=== PATIENT | female | born 1955 | race Caucasian/White ===

== ENCOUNTER → 2018-07-27 08:04 | Outpatient (CLI) | payer MEDICARE, OTHER, SELFPAY ==
[2018-07-27 10:12] LABS: Add Manual Diff / Slide Review NO; Basophils Percent Auto 0.6 % (0-2); Eosinophils Percent Auto 1.5 % (2-4); Hematocrit 41.4 % (36-46); Hemoglobin 14.2 g/dL (12.0-16.0); Lymphocytes Percent Auto 31.9 % (25-40); Mean Corpuscular HGB Conc 34.3 % (30-36); Mean Corpuscular Hemoglobin 31.6 PG (26-34); Mean Corpuscular Volume 92.1 fL (80-100); Monocytes Percent Auto 7.1 % (3-14); Neutrophils Absolute Auto 2800 /uL (3000-5900); Neutrophils Percent Auto 58.9 % (50-75); Platelet Count 242 X10^3/uL (150-400); Red Cell Distribution Width 13.2 % (11.6-14.8); White Blood Cell Count 4.7 X10^3/uL (4.5-11.0)
[2018-07-27 10:36] LABS: Alanine Aminotransferase 34 IU/L (9-52); Albumin 4.2 g/dL (3.5-5.0); Albumin Globulin Ratio 1.6 (1.0-2.8); Alkaline Phosphatase 73 U/L (38-126); Aspartate Aminotransferase 29 IU/L (14-36); BUN Creatinine Ratio 24.3 (6-22); Bilirubin Total 0.7 mg/dL (0.2-1.3); Blood Urea Nitrogen 17 mg/dL (7-17); Calcium 9.5 mg/dL (8.4-10.2); Carbon Dioxide 28 mmol/L (22-32); Chloride 105 mmol/L (98-107); Cholesterol 202 mg/dL (140-199); Estimated Glomerular Filt Rate > 60.0 mL/min (>60); Globulin 2.6 g/dL (1.7-4.1); Glucose 94 mg/dL (80-110); HDL Cholesterol 64 mg/dL (40-60); HEMOLYSIS < 15 (0-50); LDL Cholesterol Calculated 127 mg/dL (<100); Potassium 4.2 mmol/L (3.4-5.1); Sodium 142 mmol/L (137-145); Total Protein 6.8 g/dL (6.3-8.2); Triglycerides 56 mg/dL (35-150)
[2018-07-29 14:41] LABS: Fecal Immunochemical Test NOT DETECTED
== END ==
PROVIDERS: PCP Family Medicine; Visit Provider Family Medicine
DX: R42 Dizziness and giddiness (principal); Z00.00 Encounter for general adult medical examination without abnormal findings; Z13.220 Encounter for screening for lipoid disorders; Z86.39 Personal history of other endocrine, nutritional and metabolic disease; Z12.11 Encounter for screening for malignant neoplasm of colon
CPT/HCPCS: 36415; 80053; 80061; 82274; 85025

== ENCOUNTER → 2018-09-04 09:16 | Outpatient (CLI) | payer MEDICARE, OTHER, SELFPAY ==
--- NOTE | 2018-09-04 09:18 | DI.MG.S_ITS ---
BILATERAL DIGITAL SCREENING MAMMOGRAM 3D/2D WITH CAD: 09/04/2018 CLINICAL: Routine screening. Comparison is made to exam dated: 07/04/2017 mammogram - [facility]. The tissue of both breasts is heterogeneously dense. This may lower the sensitivity of mammography. Current study was also evaluated with a Computer Aided Detection (CAD) system. No significant masses, calcifications, or other findings are seen in either breast. There has been no significant interval change. IMPRESSION: NEGATIVE There is no mammographic evidence of malignancy. A 1 year screening mammogram is recommended. This exam was interpreted at Station ID: [id number]. NOTE: For mammograms, a report in lay terms will be sent to the patient. Approximately 15% of breast malignancies will not be visualized mammographically. In the management of a palpable breast mass, a negative mammogram must not discourage biopsy of a clinically suspicious lesion. Electronically Signed By: Janice chiang/anabelle:09/04/2018 16:56:30 letter sent: Normal Exam ACR BI-RADS Category 1: Negative 3341F
== END ==
PROVIDERS: PCP Family Medicine; Visit Provider Family Medicine
DX: Z12.31 Encounter for screening mammogram for malignant neoplasm of breast (principal); M85.88 Other specified disorders of bone density and structure, other site; Z13.820 Encounter for screening for osteoporosis; Z78.0 Asymptomatic menopausal state; Z87.39 Personal history of other diseases of the musculoskeletal system and connective tissue
CPT/HCPCS: 77063; 77067; 77080

== ENCOUNTER → 2019-09-15 07:31 | Outpatient (CLI) | payer MEDICARE, OTHER, SELFPAY ==
--- NOTE | 2019-09-15 | DI.MG.S_ITS ---
BILATERAL DIGITAL SCREENING MAMMOGRAM 3D/2D WITH CAD: 09/15/2019 CLINICAL: Routine screening. Comparison is made to exams dated: 09/04/2018 mammogram - [facility] and 07/04/2017 mammogram - [facility]. The tissue of both breasts is heterogeneously dense. This may lower the sensitivity of mammography. Current study was also evaluated with a Computer Aided Detection (CAD) system. No significant masses, calcifications, or other findings are seen in either breast. There has been no significant interval change. IMPRESSION: NEGATIVE There is no mammographic evidence of malignancy. A 1 year screening mammogram is recommended. This exam was interpreted at Station ID: [id number]. NOTE: For mammograms, a report in lay terms will be sent to the patient. Approximately 15% of breast malignancies will not be visualized mammographically. In the management of a palpable breast mass, a negative mammogram must not discourage biopsy of a clinically suspicious lesion. Electronically Signed By: Janice chiang/anabelle:09/17/2019 10:40:10 letter sent: Normal Exam ACR BI-RADS Category 1: Negative 3341F
== END ==
PROVIDERS: PCP Family Medicine; Visit Provider Family Medicine
DX: Z12.31 Encounter for screening mammogram for malignant neoplasm of breast (principal)
CPT/HCPCS: 77063; 77067

== ENCOUNTER 2019-09-25 06:35 | Day surgery (SDC) | payer MEDICARE, OTHER, SELFPAY ==
[2019-09-25 07:12] VITALS: BP 139/73; PULSE 49; RESP 16; TEMP 36.4; O2SAT 100; BMI 24.3
[2019-09-25] MEDS: SODIUM CHLORIDE 0.9% 1,000 ML 200 ML IV (07:25)
--- NOTE | 2019-09-25 07:51 | PM.PREOP ---
Pre-operative Note Interval Note History & Physical reviewed/Exam performed by Physician: Yes Changes to H&P: Yes H&P completed within 30 days and has changed as indicated here:: The patient once skin tag removed anus. It was added to consent ASA Class (for procedural sedation): I
--- NOTE | 2019-09-25 08:34 | PM.OP.ENDO ---
Operative Date/Time/Diagnoses Date of procedure: 09/25/19 Time of procedure: 08:35 Pre-op diagnosis: Skin tag of anus. Screening exam. History of colon bleeding Post-op diagnosis: same (Normal colonoscopy) Procedure & Clinicians Study performed: Colonoscopy. Excision of anal tag. Same procedure as scheduled: Yes Indications: Is rectal bleeding Surgeon: Dougie Morocho Procedure Notes SCOAP/Timeout: Performed Procedure in detail: The patient was placed in the left lateral decubitus position and underwent IV sedation directed by the surgeon consisting of fentanyl and Versed. Digital exam was unremarkable except for small tag anterior midline. The scope was inserted and advanced through the rectum into the sigmoid, descending, transverse, and ascending colon. No lesions were seen. The cecum was reached identified by the ileocecal valve and the appendiceal opening. The ileocecal valve was successfully cannulated. The terminal ileum was normal in appearance. The scope was gradually brought out. No Polyps were found. The scope ultimately was retroflexed in the rectum. The appearance was normal. The scope was removed and the patient tolerated the procedure well. The prep was excellent. I then cleaned the perianal skin with Betadine and injected local anesthetic near the base of the tag. The tag was excised with scissors and closure of the defect was with a 4 0 chromic interrupted suture. Gauze was applied. Scope withdrawal time: 6-1/2 minutes Sedation minutes: 24 Findings: other findings (Tag near the anus) Specimen(s): none sent Complications: none Post-procedure Recommendations: Colonscopy in 10 years Follow up: as needed Disposition: PACU
[2019-09-25] MEDS: fentaNYL 250 MCG/5 ML INJ IV (08:35)
[2019-09-25] MEDS: MIDAZOLAM 5 MG/5 ML VIAL IV (08:36)
[2019-09-25 08:37] VITALS: BP 128/73; PULSE 64; RESP 18; TEMP 36.3; O2SAT 99
[2019-09-25] MEDS: LIDOCAINE 1% 30 ML INJ (08:37)
[2019-09-25 08:42] VITALS: BP 121/76; PULSE 56; RESP 18; O2SAT 100
[2019-09-25 08:47] VITALS: BP 121/78; PULSE 61; RESP 15; O2SAT 100
[2019-09-25 08:52] VITALS: BP 131/76; PULSE 53; RESP 15; TEMP 36.3; O2SAT 99
== END 2019-09-25 09:05 | disposition home or self-care (01) ==
LOC: ENDO 06:36
PROVIDERS: PCP Family Medicine; Visit Provider Specialist
PROC: 0DJD8ZZ Inspection of Lower Intestinal Tract, Via Natural or Artificial Opening Endoscopic (ICD-10-PCS; CPT 45378; principal; 2019-09-25 07:45)
DX: Z12.11 Encounter for screening for malignant neoplasm of colon (principal); Z80.0 Family history of malignant neoplasm of digestive organs; K64.4 Residual hemorrhoidal skin tags
CPT/HCPCS: 46220; G0105; 99152; J2250; J3010

== ENCOUNTER → 2020-02-24 10:51 | Outpatient (CLI) | payer MEDICARE, OTHER, SELFPAY ==
--- NOTE | 2020-02-24 10:54 | DI.RAD.S_ITS ---
PROCEDURE: XR TIBIA FIBULA RT 2V INDICATIONS: Left lower extremity pain TECHNIQUE: 2 views of the tibia and fibula were acquired. COMPARISON: None. FINDINGS: Bones: No fractures or dislocations. No suspicious bony lesions. Soft tissues: No suspicious soft tissue calcifications or masses. IMPRESSION: No fracture. If the patient's symptoms do not improve recommend followup radiographs in 10 days to assess for healing sclerosis/occult injury. Dictated by: Johny Norris M.D. on 02/24/2020 at 13:03 Approved by: Johny Norris M.D. on 02/24/2020 at 13:04
== END ==
PROVIDERS: PCP Family Medicine; Referring Provider Registered Nurse; Visit Provider Registered Nurse
DX: M79.605 Pain in left leg (principal)
CPT/HCPCS: 73590

== ENCOUNTER → 2020-02-25 08:10 | Outpatient (CLI) | payer MEDICARE, OTHER, SELFPAY ==
[2020-02-25 09:50] LABS: Alanine Aminotransferase 19 IU/L (<35); Albumin 4.4 g/dL (3.5-5.0); Albumin Globulin Ratio 1.7 (1.0-2.8); Alkaline Phosphatase 76 U/L (38-126); Aspartate Aminotransferase 34 IU/L (14-36); BUN Creatinine Ratio 26.7 (6-22); Bilirubin Total 0.8 mg/dL (0.2-1.3); Blood Urea Nitrogen 16 mg/dL (7-17); Calcium 10.1 mg/dL (8.4-10.2); Carbon Dioxide 31 mmol/L (22-32); Chloride 104 mmol/L (98-107); Estimated Glomerular Filt Rate > 60.0 mL/min (>60); Globulin 2.6 g/dL (1.7-4.1); Glucose 103 mg/dL (80-110); HEMOLYSIS < 15 (0-50); Potassium 4.8 mmol/L (3.4-5.1); Sodium 139 mmol/L (137-145)
== END ==
PROVIDERS: PCP Family Medicine; Referring Provider Family Medicine; Visit Provider Family Medicine
DX: Z13.1 Encounter for screening for diabetes mellitus (principal)
CPT/HCPCS: 36415; 80053

== ENCOUNTER 2020-03-01 07:07 | Emergency (ER) | payer MEDICARE, OTHER, SELFPAY ==
[2020-03-01 07:13] VITALS: BP 158/77; PULSE 68; RESP 16; TEMP 36.9; O2SAT 100; BMI 24.0
--- NOTE | 2020-03-01 07:18 | DI.RAD.S_ITS ---
PROCEDURE: XR KNEE RT 3V INDICATIONS: open lac TECHNIQUE: 3 views of the knee were acquired. COMPARISON: None. FINDINGS: Bones: No fractures or dislocations. No suspicious bony lesions. Mild tricompartmental osteoarthritis is seen more prominent in the medial femoral tibial compartment. Soft tissues: No joint effusion. No suspicious soft tissue calcifications. IMPRESSION: Mild tricompartmental osteoarthritis. No fracture or dislocation. No radiopaque foreign body or significant joint effusion. Dictated by: Sarmad Finch M.D. on 03/01/2020 at 8:40 Approved by: Sarmad Finch M.D. on 03/01/2020 at 8:41
--- NOTE | 2020-03-01 08:20 | ED_ITS ---
HPI - Extremity Injury (Lower) General Chief Complaint: Extremity Injury, Lower Stated Complaint: injury to right knee Time Seen by Provider: 03/01/20 08:01 Source: patient Mode of arrival: Ambulatory Limitations: no limitations History of Present Illness HPI Narrative: 64-year-old woman with no significant past medical history was out walking around [place] like this morning when she had a mechanical fall stumbled fell forward landing mostly on her right knee and left elbow. There is no loss of consciousness. She was able to get up and complete her walk to get back to her car. She notes some tenderness in the right knee but again is able to walk and bear weight. There is a 2 cm laceration just below the knee that does not appear to go through fascial planes or into the knee joint itself. Related Data Home Medications Medication Instructions Recorded Confirmed cholecalciferol (vitamin D3) 25 2,000 unit PO DAILY 09/17/19 02/24/20 mcg (1,000 unit) capsule Previous Rx's Medication Instructions Recorded sodium,potassium,mag sulfates 17.5 177 ml PO DAILY #354 ml 09/17/19 gram-3.13 gram-1.6 gram oral soln Allergies Allergy/AdvReac Type Severity Reaction Status Date / Time No Known Drug Allergies Allergy Verified 02/24/20 10:27 Review of Systems Review of Systems Narrative: Pertinent positive and negative findings as per HPI Remainder of review of systems is otherwise unremarkable for Constitutional: Fevers, chills, weakness ENT: No sore throat, neck pain, ear pain CV: Chest pain, palpitations, dyspnea on exertion Respiratory: Cough, wheeze, dyspnea GI: Nausea, vomiting, diarrhea, change in bowel habits, black or bloody stools : Dysuria, hematuria, flank pain MS: Muscle weakness, numbness, joint swelling or warmth Neuro: Syncope, dizziness, tingling Patient History Medical History Abnormal Pap smear of cervix (Resolved ~1995) Chicken pox (Resolved) Foot pain (Chronic ~2014) Measles (Resolved) Plantar warts (Chronic) Rosacea (Chronic) Tinnitus (Chronic ~1989) Surgical History History of hysterectomy (Resolved ~1995) History of tonsillectomy (Resolved ~1960) Family History Father Lung cancer Mother Colon cancer Grandmother Diabetes mellitus Social History marital status: number of children: 2 household members: spouse lives independently: Yes education level: college occupational status: other (retired) Smoking Status: Never smoker alcohol intake: current substance use type: does not use Smoking Status: Never smoker alcohol intake frequency: 0-2 drinks per day Substance Use Type: does not use Exam Narrative Exam Narrative: General: Alert appropriate in no acute distress Respiratory: Able to speak in full sentences, no obvious respiratory distress Skin: No obvious rashes, warm and dry Neurologic: Grossly intact no obvious asymmetries or abnormalities Psych, appropriate insight and affect, cooperative Extremity: Minor abrasion to the medial aspect of the left elbow with full range of motion of the left shoulder elbow and wrist. Neurovascularly intact. Minor abrasion to the palmar surface of the right hand, hand wrist elbow and shoulder all with full range of motion and neurovascularly intact. No injury to the left leg. Right leg with an abrasion over the patella. A slight bit of effusion already noted Reilly patella. She has tenderness with full extension but can extend to approximately 160? without pain. Wound is explored pre and post anesthesia with no fascial deficits appreciated to suspect intra-articular involvement. Initial Vital Signs Initial Vital Signs: Vital Signs Temperature 98.4 F 03/01/20 07:13 Pulse Rate 68 03/01/20 07:13 Respiratory Rate 16 03/01/20 07:13 Blood Pressure 158/77 H 03/01/20 07:13 Pulse Oximetry 100 03/01/20 07:13 Procedures Laceration Repair Laceration 1: Site: lower extremity Side (If applicable): right Size (cm): 2 Description: linear Depth: simple, single layer Local Anesthetic: bupivacaine 0.5% Pre-repair: wound explored, irrigated extensively, deep structures intact and wound margins revised Skin layer closed with: nylon Size (cm): 3-0 Number of sutures: 1 Technique: horizontal mattress Course Orders Ordered: ED Orders 03/01/20 07:18 XR knee RT 3V Stat Vital Signs Vital signs: Vital Signs - 8 hr 03/01/20 07:13 Temperature 98.4 F Pulse Rate 68 Respiratory Rate 16 Blood Pressure 158/77 H Pulse Oximetry 100 MDM - Extremity Injury (Lower) Imaging Data X-ray knee: Radiologist's Impression: IMPRESSION: Mild tricompartmental osteoarthritis. No fracture or dislocation. No radiopaque foreign body or significant joint effusion. Dictated by: Sarmad Finch M.D. on 03/01/2020 at 8:40 MDM Narrative Medical decision making narrative: Fall with laceration below the right knee. With careful exploration I do not think that this extends into the joint space. Complications of joint space infection or clearly reviewed with patient and she understands urgent need for re-evaluation if she has any concerning symptoms. She is safe for home discharge. Discharge Plan Departure Patient Disposition: Home Clinical Impression: Laceration Knee strain Qualifiers: Encounter type: initial encounter Laterality: right Qualified Code(s): S86.911A - Strain of unspecified muscle(s) and tendon(s) at lower leg level, right leg, initial encounter Fall Qualifiers: Encounter type: initial encounter Qualified Code(s): W19.XXXA - Unspecified fall, initial encounter Abrasion of elbow Qualifiers: Encounter type: initial encounter Laterality: left Qualified Code(s): S50.312A - Abrasion of left elbow, initial encounter Instructions: DI for Knee Sprain, DI for Laceration Repair -- Simple Activity Restrictions/Additional Instructions: Thank you for coming in today. This stitches in your knee need to come out on or about March 10 or . The wound was explored and I did not see any evidence that there is a puncture into the knee joint space and the x-ray was equally reassuring. Sometimes however small puncture spaces are missed. If you were to develop an infection in the knee joint this would need immediate attention. You would notice increasing pain, swelling, warmth, redness. If you notice any of these things developing please return for further evaluation. Keep the suture space and abrasion over the knee dressed with antibiotic ointment and a Band-Aid while it is healing. With any fall you are going to find all sorts of sore spots over the next 1-2 days as your body continues to heal. Using 400 mg of ibuprofen (2 [id number] pills) and 1 Tylenol every 6 hours can be very helpful in controlling pain. I hope you heal well and I hope you are able to continue plans for your [place] hike next month. Prescriptions: No Action cholecalciferol (vitamin D3) 1,000 unit capsule 2,000 unit PO DAILY RF: 0 sodium,potassium,mag sulfates 17.5-3.13-1.6 gram recon soln 177 ml PO DAILY Qty: 354 RF: 0 Referrals: Ness Amaya DO [Primary Care Provider] -
[2020-03-01 09:15] VITALS: BP 144/86; PULSE 82; RESP 16; O2SAT 100
== END 2020-03-01 09:15 | disposition home or self-care (01) ==
PROVIDERS: Emergency Provider Emergency Medicine; PCP Family Medicine
DX: S81.011A Laceration without foreign body, right knee, initial encounter (principal); S86.911A Strain of unspecified muscle(s) and tendon(s) at lower leg level, right leg, initial encounter; S50.312A Abrasion of left elbow, initial encounter; W19.XXXA Unspecified fall, initial encounter
CPT/HCPCS: 12001; 73562; 99283

== ENCOUNTER → 2020-09-21 09:56 | Outpatient (CLI) | payer MEDICARE, OTHER, SELFPAY ==
--- NOTE | 2020-09-21 | DI.MG.S_ITS ---
BILATERAL DIGITAL SCREENING MAMMOGRAM 3D/2D WITH CAD: 09/21/2020 CLINICAL: Routine screening. Comparison is made to exams dated: 09/15/2019 mammogram, 09/04/2018 mammogram - [facility], and 07/04/2017 mammogram - [facility]. The tissue of both breasts is heterogeneously dense. This may lower the sensitivity of mammography. Current study was also evaluated with a Computer Aided Detection (CAD) system. No significant masses, calcifications, or other findings are seen in either breast. There has been no significant interval change. IMPRESSION: NEGATIVE There is no mammographic evidence of malignancy. A 1 year screening mammogram is recommended. This exam was interpreted at Station ID: [id number]. NOTE: For mammograms, a report in lay terms will be sent to the patient. Approximately 15% of breast malignancies will not be visualized mammographically. In the management of a palpable breast mass, a negative mammogram must not discourage biopsy of a clinically suspicious lesion. Electronically Signed By: Osvaldo marcum/anabelle:09/21/2020 10:54:16 letter sent: Normal Exam ACR BI-RADS Category 1: Negative 3341F
== END ==
PROVIDERS: PCP Family Medicine; Referring Provider Family Medicine; Visit Provider Family Medicine
DX: Z12.31 Encounter for screening mammogram for malignant neoplasm of breast (principal); M85.88 Other specified disorders of bone density and structure, other site; Z78.0 Asymptomatic menopausal state
CPT/HCPCS: 77063; 77067; 77080

== ENCOUNTER → 2021-06-17 07:49 | Outpatient (CLI) | payer MEDICARE, OTHER, SELFPAY ==
[2021-06-17 10:24] LABS: Alanine Aminotransferase 18 IU/L (<35); Albumin 4.2 g/dL (3.5-5.0); Albumin Globulin Ratio 1.6 (1.0-2.8); Alkaline Phosphatase 71 U/L (38-126); Aspartate Aminotransferase 28 IU/L (14-36); BUN Creatinine Ratio 30.6 (6-22); Bilirubin Total 0.7 mg/dL (0.2-1.3); Blood Urea Nitrogen 19 mg/dL (7-17); Calcium 9.9 mg/dL (8.4-10.2); Carbon Dioxide 29 mmol/L (22-32); Chloride 104 mmol/L (98-107); Cholesterol 236 mg/dL (140-199); Estimated Glomerular Filt Rate > 60.0 mL/min (>60); Globulin 2.7 g/dL (1.7-4.1); Glucose 97 mg/dL (80-110); HDL Cholesterol 72 mg/dL (40-60); HEMOLYSIS < 15 (0-50); LDL Cholesterol Calculated 148 mg/dL (<100); Potassium 5.1 mmol/L (3.4-5.1); Sodium 139 mmol/L (137-145); Total Protein 6.9 g/dL (6.3-8.2); Triglycerides 82 mg/dL (35-150)
== END ==
PROVIDERS: PCP Family Medicine; Referring Provider Family Medicine; Visit Provider Family Medicine
DX: E78.5 Hyperlipidemia, unspecified (principal)
CPT/HCPCS: 36415; 80053; 80061

== ENCOUNTER 2021-08-19 12:38 | Emergency (ER) | payer MEDICARE, OTHER, SELFPAY ==
[2021-08-19 12:59] VITALS: BP 140/80; PULSE 69; RESP 18; TEMP 36.6; O2SAT 99; BMI 24.9
--- NOTE | 2021-08-19 13:03 | DI.RAD.S_ITS ---
PROCEDURE: XR SHOULDER LT MIN 2V INDICATIONS: fall yesterday. Left shoulder pain, no lateral movement TECHNIQUE: 3 views of the shoulder were acquired. COMPARISON: None. FINDINGS: Bones: Cortical lucencies noted in the greater tuberosity of the proximal left humerus. No suspicious bony lesions. Visualized ribs appear intact. Soft tissues: No suspicious soft tissue calcifications. IMPRESSION: Nondisplaced fractures involving the greater tuberosity of proximal left humerus. Dictated by: Luma Douglas MD, PhD on 08/19/2021 at 13:54 Approved by: Luma Douglas MD, PhD on 08/19/2021 at 13:56
[2021-08-19 14:19] VITALS: PULSE 72
--- NOTE | 2021-08-19 14:27 | ED_ITS ---
HPI - Extremity Injury (Upper) <Didier Bull PA-C - Last Filed: 08/19/21 18:53> General Chief Complaint: Extremity Injury, Upper Stated Complaint: Fall, Left Shoulder Pain Time Seen by Provider: 08/19/21 14:19 History of Present Illness HPI narrative: Patient is a 66-year-old female presenting to the emergency department today for evaluation a left shoulder injury. Patient states that she fell yesterday when she tripped over a curb and landed on her left side and shoulder. Patient states that she did not have time to brace herself prior to following. Patient states that she did not hit her head or lose consciousness as a result of the fall. Additionally, patient states that she is not anticoagulated daily. Patient states that she has experienced left shoulder pain since a fall, but denies pain or injury elsewhere. No fever, chills, chest pain, shortness of breath, cough, nausea, vomiting, diarrhea, abdominal pain, dysuria, hematuria, or numbness and tingling the bilateral upper extremities reported. No other concerns are voiced at this time. Related Data Home Medications Medication Instructions Recorded Confirmed cholecalciferol (vitamin D3) 25 2,000 unit PO DAILY 09/17/19 07/25/21 mcg (1,000 unit) capsule Previous Rx's Medication Instructions Recorded sodium,potassium,mag sulfates 17.5 177 ml PO DAILY #354 ml 09/17/19 gram-3.13 gram-1.6 gram oral soln oxycodone 5 mg tablet 5 mg PO BEDTIME #6 tab 08/19/21 Allergies Allergy/AdvReac Type Severity Reaction Status Date / Time No Known Drug Allergies Allergy Verified 08/19/21 13:03 Review of Systems <Didier Bull PA-C - Last Filed: 08/19/21 18:53> Constitutional Constitutional: Denies chills, Denies fatigue, Denies fever(s), Denies frequent falls, Denies lethargy and Denies weakness Eyes Eyes: Denies loss of vision ENT Ears, Nose, Mouth, and Throat: Denies dizziness and Denies neck pain Cardiovascular Cardiovascular: Denies chest pain, Denies irregular heart rhythm, Denies lightheadedness, Denies palpitations, Denies dyspnea, Denies dyspnea on exertion and Denies orthopnea Respiratory Respiratory: Denies cough, Denies dyspnea, Denies dyspnea on exertion and Denies wheezing Gastrointestinal Gastrointestinal: Denies abdominal pain, Denies change in bowel habits, Denies diarrhea, Denies nausea and Denies vomiting Genitourinary Genitourinary: Denies hematuria, Denies flank pain, Denies urinary incontinence and Denies urinary urgency Musculoskeletal Musculoskeletal: Denies back pain, Reports arthralgias (Left shoulder), Denies muscle weakness, Denies neck pain, Denies numbness and Denies tingling Integumentary/Breasts Skin/Breast: Denies pruritus, Denies erythema, Denies rash and Denies wounds Neurologic Neurologic: Denies behavioral changes, Denies confusion, Denies dizziness, Denies frequent falls, Denies loss of vision, Denies numbness, Denies tingling and Denies weakness Psychiatric Psychiatric: Denies behavioral changes and Denies confusion Endocrine Endocrine: Denies fatigue and Denies palpitations Allergic/Immunologic Allergic/Immunologic: Denies wheezing Patient History <Didier Bull PA-C - Last Filed: 08/19/21 18:53> Medical History Abnormal Pap smear of cervix (~1995) Chicken pox Foot pain (~2014) Irritable bowel syndrome Measles Plantar warts Rosacea Situational anxiety Tinnitus (~1989) Surgical History History of hysterectomy (~1995) History of tonsillectomy (~1960) Family History Father Lung cancer Mother Colon cancer Grandmother Diabetes mellitus Social History marital status: number of children: 2 household members: spouse lives independently: Yes education level: college occupational status: other (retired) Smoking Status: Never smoker alcohol intake: current substance use type: does not use Smoking Status: Never smoker alcohol intake frequency: 0-2 drinks per day Substance Use Type: does not use Exam <Didier Bull PA-C - Last Filed: 08/19/21 18:53> Narrative Exam Narrative: GENERAL: 66 year old patient appears stated age. Well-developed patient, in no acute distress. HEAD: Atraumatic. Normocephalic. EYES: Pupils equal round and reactive. Extraocular motions intact. No scleral icterus. No injection or drainage. ENT: Nose without bleeding, purulent drainage. Throat without erythema, tonsillar hypertrophy or exudate. Airway patent. NECK: Trachea midline. Non tender CARDIOVASCULAR: Regular rate and rhythm without murmurs, gallops, or rubs. RESPIRATORY: Clear to auscultation. Breath sounds equal bilaterally. No wheezes, rales, or rhonchi. GASTROINTESTINAL: Abdomen soft, non-tender, nondistended. EXTREMITIES: No edema. Tenderness to palpation appreciated over the left anterior deltoid. Gross motor function intact throughout the bilateral upper extremities. Good sensation to light touch appreciated throughout the bilateral upper extremities. The significant ecchymosis, swelling, or deformity noted over the left shoulder or arm. BACK: Nontender without deformity or crepitance. No flank tenderness. NEURO: AOx3. SKIN: No rash or erythema of visible areas Initial Vital Signs Initial Vital Signs: Vital Signs Temperature 97.9 F 08/19/21 12:59 Pulse Rate 69 08/19/21 12:59 Respiratory Rate 18 08/19/21 12:59 Blood Pressure 140/80 08/19/21 12:59 Pulse Oximetry 99 08/19/21 12:59 Cardio Pulses: radial pulses present bilaterally <Kraig Cowart DO - Last Filed: 08/20/21 08:37> Initial Vital Signs Initial Vital Signs: Vital Signs Temperature 97.9 F 08/19/21 12:59 Pulse Rate 69 08/19/21 12:59 Respiratory Rate 18 08/19/21 12:59 Blood Pressure 140/80 08/19/21 12:59 Pulse Oximetry 99 08/19/21 12:59 Course <Didier Bull PA-C - Last Filed: 08/19/21 18:53> Course Course Narrative: X-ray of left shoulder obtained. Orders Ordered: ED Orders 08/19/21 13:03 XR shoulder LT min 2V Stat Vital Signs Vital signs: Vital Signs - 8 hr 08/19/21 12:59 08/19/21 14:19 Temperature 97.9 F Pulse Rate 69 Pulse Rate [Left Radial] 72 Respiratory Rate 18 Blood Pressure 140/80 Pulse Oximetry 99 <Kraig Cowart DO - Last Filed: 08/20/21 08:37> Orders Ordered: ED Orders 08/19/21 13:03 XR shoulder LT min 2V Stat Vital Signs Vital signs: Vital Signs - 8 hr 08/19/21 12:59 08/19/21 14:19 Temperature 97.9 F Pulse Rate 69 Pulse Rate [Left Radial] 72 Respiratory Rate 18 Blood Pressure 140/80 Pulse Oximetry 99 MDM - Extremity Injury (Upper) <Didier Bull PA-C - Last Filed: 08/19/21 18:53> Imaging Data Extremity x-ray #1: Radiologist's Impression: PROCEDURE:? XR SHOULDER LT MIN 2V ? INDICATIONS:? fall yesterday. Left shoulder pain, no lateral movement ? TECHNIQUE:? 3 views of the shoulder were acquired.? ? COMPARISON:? None. ? FINDINGS:? ? Bones:? Cortical lucencies noted in the greater tuberosity of the proximal left humerus.? No suspicious bony lesions.? Visualized ribs appear intact.? ? Soft tissues:? No suspicious soft tissue calcifications.? ? IMPRESSION:? Nondisplaced fractures involving the greater tuberosity of proximal left humerus.? ? ? Dictated by: Luma Douglas MD, PhD on 08/19/2021 at 13:54 ? ? Approved by: Luma Douglas MD, PhD on 08/19/2021 at 13:56 ? [facility] Narrative Medical decision making narrative: To consider fracture versus dislocation versus sprain versus strain. Overall physical examination and history are reassuring. X-ray the left shoulder today in the emergency department did show a nondisplaced fracture involving the greater tuberosity of the proximal left humerus. Patient was placed in a sling prior to discharge. Instructed the patient to follow up with scheduled [facility] for the earliest available appointment. Strict return precautions discussed with patient prior to discharge. Discharge Plan Departure Patient Disposition: Home Clinical Impression: Closed left humeral fracture Activity Restrictions/Additional Instructions: *You have been diagnosed with left proximal humerus fracture *What to do: *Please continue to take your regular medications as directed. [ ] New medication prescriptions sent to your pharmacy: [ ] [X] New medication written as a paper prescription: [facility] - Oxycodone [ ] No new medications given *Please follow up with your primary care provider in 2-3 days, call for an appointment. Let them know you were seen in the Emergency Department and that we ask that you be seen in follow up. We will electronically transmit a record of today's note if your PCP is in our system. *Please follow-up with [facility] for the earliest available appointment. Office can be reached at . *If you do not have a primary care provider please contact the [facility] Resource line at [phone]. They will ask some questions about your medical history and help get you set up with a doctor in the community. *Return to Emergency Department if you should have any new, worsening or concerning symptoms, such as fever greater than 101 F, shaking chills, worsening pain, persistent vomiting or other bothersome symptoms. Prescriptions: New oxycodone 5 mg tablet 5 mg PO BEDTIME Qty: 6 0RF No Action cholecalciferol (vitamin D3) 1,000 unit capsule 2,000 unit PO DAILY 0RF sodium,potassium,mag sulfates 17.5-3.13-1.6 gram recon soln 177 ml PO DAILY Qty: 354 0RF Rx Instructions: drink entire amount PM before + AM of procedure, 10-12 hr apart Referrals: Ness Amaya DO [Primary Care Provider] - Chantale Moffett MD [Physician] - As soon as possible <Kraig Cowart DO - Last Filed: 08/20/21 08:37> Cosign ED Attending Cosignature Attestation: I was immediately available in the department for consultation. This documentation has been reviewed and I agree with assessment and plan. Supervised by Kraig Cowart DO
== END 2021-08-19 14:46 | disposition home or self-care (01) ==
PROVIDERS: Emergency Provider Physician Assistant; PCP Family Medicine
DX: S42.255A Nondisplaced fracture of greater tuberosity of left humerus, initial encounter for closed fracture (principal); W18.09XA Striking against other object with subsequent fall, initial encounter
CPT/HCPCS: 73030; 99283

== ENCOUNTER → 2021-09-22 11:13 | Outpatient (CLI) | payer MEDICARE, OTHER, SELFPAY ==
--- NOTE | 2021-09-22 11:15 | DI.RAD.S_ITS ---
PROCEDURE: XR TIBIA FUBULA RT 2V INDICATIONS: pain over right fibular head TECHNIQUE: 2 views of the tibia and fibula were acquired. COMPARISON: [facility], CR, XR KNEE RT 3V, 03/01/2020, 7:26. [facility], CR, XR TIBIA FIBULA LT 2V, 02/24/2020, 10:51. FINDINGS: Bones: No fractures or dislocations. No suspicious bony lesions. Soft tissues: No suspicious soft tissue calcifications or masses. IMPRESSION: No visualized acute fracture or dislocation. However, if clinical concern and/or pain persist, short interval imaging followup in 7-10 days is recommended, as occult injury cannot be definitively excluded. Dictated by: Keysha Otero M.D. on 09/22/2021 at 15:30 Approved by: Keysha Otero M.D. on 09/22/2021 at 15:31
== END ==
PROVIDERS: PCP Family Medicine; Referring Provider Family Medicine; Visit Provider Family Medicine
DX: M89.8X6 Other specified disorders of bone, lower leg (principal)
CPT/HCPCS: 73590

== ENCOUNTER → 2021-09-29 08:34 | Outpatient (CLI) | payer MEDICARE, OTHER, SELFPAY ==
--- NOTE | 2021-09-29 08:35 | DI.MRI.S_ITS ---
PROCEDURE: MR LOWER LEG RT WO CON INDICATIONS: right lower leg pain. TECHNIQUE: Noncontrast coronal and sagittal T1 spin echo and STIR; axial T1 spin echo and T2 fast spin echo with fat saturation through the right lower leg.. COMPARISON: [facility], CR, XR TIBIA FIBULA RT 2V, 09/22/2021, 12:19. FINDINGS: Image quality: Excellent. Bones: There is no marrow edema. No fracture or dislocation. 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 No suspicious intraosseous lesion. No tibial cortical thickening or periosteal reaction is seen to suggest tibial stress injuries. Soft tissues: There is small to moderate amount of right knee joint effusion, no gross intra-articular loose bodies. The scanned muscles demonstrate normal overall bulk and internal signal. Subcutaneous tissues appear normal as well. No soft tissue masses are present. IMPRESSION: 1. No MR evidence of tibial stress injuries. No fracture or dislocation. No suspicious intraosseous lesion. 2. 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 Small to moderate joint effusion. No gross loose bodies. 3. No gross signal abnormality is seen in right lower leg muscles and tendons. Dictated by: Sarmad Finch M.D. on 09/29/2021 at 9:55 Approved by: Sarmad Finch M.D. on 09/29/2021 at 10:03
== END ==
PROVIDERS: PCP Family Medicine; Referring Provider Family Medicine; Visit Provider Family Medicine
DX: M79.604 Pain in right leg (principal); M17.11 Unilateral primary osteoarthritis, right knee; M94.261 Chondromalacia, right knee
CPT/HCPCS: 73718

== ENCOUNTER → 2021-12-05 07:57 | Outpatient (CLI) | payer MEDICARE, OTHER, SELFPAY ==
--- NOTE | 2021-12-05 08:00 | DI.MG.S_ITS ---
BILATERAL DIGITAL SCREENING MAMMOGRAM 3D/2D WITH CAD: 12/05/2021 CLINICAL: Routine screening. Comparison is made to exams dated: 09/21/2020 mammogram, 09/15/2019 mammogram, and 09/04/2018 mammogram - [facility]. There are scattered fibroglandular elements in both breasts. Current study was also evaluated with a Computer Aided Detection (CAD) system. No significant masses, calcifications, or other findings are seen in either breast. There has been no significant interval change. IMPRESSION: NEGATIVE There is no mammographic evidence of malignancy. A 1 year screening mammogram is recommended. This exam was interpreted at Station ID: [id number]. NOTE: For mammograms, a report in lay terms will be sent to the patient. Approximately 15% of breast malignancies will not be visualized mammographically. In the management of a palpable breast mass, a negative mammogram must not discourage biopsy of a clinically suspicious lesion. Electronically Signed By: Mejia meza/anabelle:12/05/2021 09:50:44 letter sent: Normal Exam ACR BI-RADS Category 1: Negative 3341F
== END ==
PROVIDERS: PCP Family Medicine; Referring Provider Family Medicine; Visit Provider Family Medicine
DX: Z12.31 Encounter for screening mammogram for malignant neoplasm of breast (principal)
CPT/HCPCS: 77063; 77067

== ENCOUNTER → 2022-05-30 10:13 | Outpatient (CLI) | payer MEDICARE, OTHER, SELFPAY ==
[2022-05-30 12:27] LABS: Add Manual Diff / Slide Review NO; Basophils Absolute Auto 0 /uL (0-100); Basophils Percent Auto 0.9 % (0-2); Eosinophils Absolute Auto 100 /uL (0-450); Eosinophils Percent Auto 1.4 % (2-4); Hematocrit 42.8 % (36-46); Hemoglobin 14.5 g/dL (12.0-16.0); Lymphocytes Absolute Auto 1500 /uL (1100-4500); Lymphocytes Percent Auto 30.4 % (25-40); Mean Corpuscular HGB Conc 33.9 % (30-36); Mean Corpuscular Hemoglobin 30.4 PG (26-34); Mean Corpuscular Volume 89.8 fL (80-100); Monocytes Absolute Auto 400 /uL (0-900); Monocytes Percent Auto 7.8 % (3-14); Neutrophils Absolute Auto 2900 /uL (1500-7000); Neutrophils Percent Auto 59.5 % (50-75); Platelet Count 245 X10^3/uL (150-400); Red Blood Cell Count 4.77 X10^6/uL (4.0-5.2); Red Cell Distribution Width 13.8 % (11.6-14.8); White Blood Cell Count 4.8 X10^3/uL (4.5-11.0)
[2022-05-30 13:00] LABS: Alanine Aminotransferase 19 IU/L (<35); Albumin 4.4 g/dL (3.5-5.0); Albumin Globulin Ratio 1.4 (1.0-2.8); Alkaline Phosphatase 81 U/L (38-126); Aspartate Aminotransferase 29 IU/L (14-36); BUN Creatinine Ratio 21.2 (6-22); Bilirubin Total 0.8 mg/dL (0.2-1.3); Blood Urea Nitrogen 18 mg/dL (7-17); C-Reactive Protein Quant 0.5 mg/dL (<1.0); Calcium 9.8 mg/dL (8.4-10.2); Carbon Dioxide 25 mmol/L (22-32); Chloride 102 mmol/L (98-107); Estimated Glomerular Filt Rate > 60 mL/min (>60); Globulin 3.1 g/dL (1.7-4.1); Glucose 88 mg/dL (80-110); HEMOLYSIS < 15 (0-50); Potassium 4.7 mmol/L (3.4-5.1); Sodium 139 mmol/L (137-145); Total Protein 7.5 g/dL (6.3-8.2)
== END ==
PROVIDERS: PCP Family Medicine; Referring Provider Family Medicine; Visit Provider Family Medicine
DX: T78.40XA Allergy, unspecified, initial encounter (principal)
CPT/HCPCS: 36415; 80053; 84443; 85025; 86140

== ENCOUNTER 2022-12-10 08:11 | Emergency (ER) | payer MEDICARE, OTHER, SELFPAY ==
[2022-12-10] VITALS (7 sets, daily range): BP systolic 138–162; BP diastolic 76–80; PULSE 57–63; RESP 16–20; TEMP 36.2; O2SAT 98–100; BMI 25.7
--- NOTE | 2022-12-10 08:50 | ED.BACK ---
HPI - Back Pain/Injury General Chief Complaint: Back Pain/Injury Stated Complaint: lumbar pain Time Seen by Provider: 12/10/22 08:50 Source: patient, RN notes reviewed and old records reviewed Limitations: no limitations History of Present Illness HPI Narrative: This is a 67-year-old female with remote history of sciatica and extruded L5 disc 25 years ago. Patient states at that time she was seen she had MRIs she was scheduled for surgery but had 2 injections or epidurals that really improved her pain significantly and she had not had anymore treatment since. She states she is always had a 1 or 2 of low back pain in that area but over the past month has been slowly increasing to level 2 or 3. Patient states in the last 24 hours rapidly worsened. She states it is the same area she has a little bit of pain down towards the hip on the right. She states 25 years ago she had significant pain down the right leg and actually had loss of sensation which improved after treatment. Patient states she does walk 7 or 8 miles regularly, she lifts weights at the gym regularly but has decreased her weight is only 5 lb daily as she is had this lower back discomfort for the past month. Patient denies any trauma or injuries. She has alternated machines at the gym see if any of them seem to be exacerbating her symptoms but did not. Patient denies fevers or chills. She denies numbness, tingling or weakness. She denies any loss of bowel or bladder control or saddle anesthesia. Patient states she was having lot of difficulty getting to the bathroom today secondary to pain which what caused her to present. She took 1 tablet of tramadol this morning at 6:00 a.m. which she states helped quite a bit but she still quite painful. She has not been taking anything else regularly for pain. She is never had any back surgeries. She denies any other daily medications. She denies any drug allergies. No tobacco, alcoholic drink daily, no illicit. Her primary care is Dr. Amaya. Related Data Home Medications Medication Instructions Recorded Confirmed cholecalciferol (vitamin D3) 25 2,000 unit PO DAILY 09/17/19 05/30/22 mcg (1,000 unit) capsule calcium carbonate 600 mg calcium 600 mg PO DAILY 05/09/22 05/30/22 (1,500 mg) tablet (Calcium) Previous Rx's Medication Instructions Recorded clobetasol-emollient 0.05 % 1 applic topical BID 1 week #15 05/30/22 topical cream grams hydroxyzine HCl 25 mg tablet 25 mg PO TID PRN itching #30 tabs 05/30/22 prednisone 20 mg tablet 40 mg PO DAILY #10 tabs 12/10/22 tramadol 50 mg tablet 50 mg PO Q6H PRN pain #15 tabs 12/10/22 Allergies Allergy/AdvReac Type Severity Reaction Status Date / Time No Known Drug Allergies Allergy Verified 05/30/22 09:30 Review of Systems Review of Systems ROS Unobtainable: All systems reviewed & are unremarkable except as noted in HPI and below Patient History Medical History Abnormal Pap smear of cervix (~1995) Chicken pox Foot pain (~2014) Irritable bowel syndrome Measles Plantar warts Rosacea Situational anxiety Tinnitus (~1989) Surgical History History of hysterectomy (~1995) History of tonsillectomy (~1960) Family History Father Lung cancer Mother Colon cancer Grandmother Diabetes mellitus Social History marital status: number of children: 2 household members: spouse lives independently: Yes education level: college occupational status: other (retired) Smoking Status: Never smoker alcohol intake: current substance use type: does not use Smoking Status: Never smoker alcohol intake frequency: 0-2 drinks per day Substance Use Type: does not use Exam Narrative Exam Narrative: GENERAL: Alert and oriented x three, well-nourished female in mild distress. HEENT: Head normocephalic, atraumatic, EOMI, pupils reactive, face symmetric, moist mucous membranes NECK: Supple, full range of motion CARDIOVASCULAR: Regular rate and rhythm without murmurs, rubs or gallops. RESPIRATORY: Breath sounds equal bilaterally, no wheezes rales or rhonchi. ABDOMEN: Soft, nontender. Normoactive bowel sounds all 4 quadrants. No guarding or rebound, rigidity, no mass : No CVA tenderness BACK: No cervical, thoracic or lumbar vertebral point tenderness. Patient has decreased range of motion, patient is quite uncomfortable when sat up in the bed. Rectal exam is deferred. Muscle strength is 5/5 in lower extremities, normal plantar and dorsiflexion bilaterally. DTRs are 2/4 and lower extremities. Dorsalis pedis and tibialis pulses are 2+ and lower extremities. Sensation is intact in the lower extremities bilaterally. EXTREMITIES: Normal range of motion, no clubbing or edema. Neurovascularly intact NEUROLOGICAL: Cranial nerves II through XII grossly intact. Moving all extremities SKIN: Warm, dry, no petechiae, no rashes or lesions, no skin changes. Initial Vital Signs Initial Vital Signs: Vital Signs Temperature 97.1 F L 12/10/22 08:24 Pulse Rate 63 12/10/22 08:24 Respiratory Rate 16 12/10/22 08:24 Blood Pressure 162/76 H 12/10/22 08:24 Pulse Oximetry 100 12/10/22 08:24 Oxygen Delivery Method Room Air 12/10/22 08:24 Course Orders Ordered: Discontinued Medications Diazepam (Diazepam 5 Mg Tablet) 5 mg PO NOW ONE Stop: 12/10/22 09:08 Last Admin: 12/10/22 09:42 Dose: 5 mg Documented By: JG Ketorolac Tromethamine (Ketorolac 30 Mg/Ml Vial) 30 mg IM NOW ONE Stop: 12/10/22 09:08 Last Admin: 12/10/22 09:42 Dose: 30 mg Documented By: JG Prednisone (Prednisone 20 Mg Tablet) 60 mg PO NOW ONE Stop: 12/10/22 09:13 Last Admin: 12/10/22 09:42 Dose: 60 mg Documented By: JG Vital Signs Vital signs: Vital Signs - 8 hr 12/10/22 10:00 12/10/22 10:53 12/10/22 10:53 Pulse Rate 60 63 Respiratory Rate 20 Blood Pressure 138/80 Pulse Oximetry 99 99 MDM - Back Pain/Injury MDM Narrative Medical decision making narrative: This is a 67-year-old female with remote history of L5 disc bulge with prior injections or epidural 25 years ago pain has been controlled since then but has been slowly increasing for the past month and rapidly worsened in the past 24 hours. Patient states she is having difficulty ambulating secondary to pain. She is not had any incontinence, no numbness, no weakness, no loss of sensation or other red flag symptoms. Patient had a tramadol this morning which was helpful she is not been taking pain medication regularly. Patient's exam is does not have any red flag symptoms currently. Plan for dose of IM medication, small amount of muscle relaxer and steroid will re-evaluate. patient has improved movement, she is able to ambulate in the department. Plan for discharge home but follow-up with pain/interventional, short course of steroids, pain medication and follow-up for further imaging. Patient is quite nervous about being able to get to the bathroom her is a disabled so he is not able to assist much. We will give walker so she has this available. Did discuss red flag symptoms, reasons to return emergently for further evaluation. Discharge Plan Departure Patient Disposition: Home Clinical Impression: Acute exacerbation of chronic low back pain Instructions: DI for Back Pain With Sciatica Activity Restrictions/Additional Instructions: Please follow-up with your physician for recheck and possibly further workup/imaging. Also included is referral to pain management they do back injections which may be helpful for you again. Please call Sunday to set up an appointment. Take steroids once daily until gone. You may take Tylenol up to a 1000 mg every 6 hours as needed and/or Alleve 1 tablet every 8-12 hours. If in adequate for pain control you can take 1-2 tramadol every 6 hours as needed. This medication can make you sleepy do not drive, perform hazardous activities or make any major decisions while taking it. This medication will make you constipated please take a stool softener once to twice daily until stools are soft and regular. Prescription sent to [facility] in [place]. Please return for fevers, rapidly worsening pain, inability to walk, loss of bowel or bladder control, new weakness, loss of sensation or inability to lift or move your leg or other new or concerning changes. Prescriptions: New prednisone 20 mg tablet 40 mg PO DAILY Qty: 10 0RF tramadol 50 mg tablet 50 mg PO Q6H PRN (Reason: pain) Qty: 15 0RF No Action calcium carbonate [Calcium 600] 600 mg calcium (1,500 mg) tablet 600 mg PO DAILY clobetasol-emollient 0.05 % cream 1 applic topical BID 7 Days Qty: 15 1RF hydroxyzine HCl 25 mg tablet 25 mg PO TID PRN (Reason: itching) Qty: 30 0RF cholecalciferol (vitamin D3) 1,000 unit capsule 2,000 unit PO DAILY Referrals: Irving Rueda DO [Physician] - Ness Amaya DO [Primary Care Provider] - Stand Alone Forms: Patient Portal/API
[2022-12-10] MEDS: predniSONE 20 MG TABLET 60 MG PO (09:42)
[2022-12-10] MEDS: diazePAM 5 MG TABLET PO (09:42)
[2022-12-10] MEDS: KETOROLAC 30 MG/ML VIAL IM (09:42)
== END 2022-12-10 11:09 | disposition home or self-care (01) ==
PROVIDERS: Emergency Provider Emergency Medicine; PCP Family Medicine
DX: M54.50 Low back pain, unspecified (principal)
CPT/HCPCS: 96372; 99283; J1885

== ENCOUNTER → 2022-12-13 08:49 | Outpatient (CLI) | payer MEDICARE, OTHER, SELFPAY ==
--- NOTE | 2022-12-13 | DI.MG.S_ITS ---
BILATERAL DIGITAL SCREENING MAMMOGRAM 3D/2D WITH CAD: 12/13/2022 CLINICAL: Routine screening. Comparison is made to exams dated: 12/05/2021 mammogram, 09/21/2020 mammogram, and 09/15/2019 mammogram - [facility]. There are scattered areas of fibroglandular density in both breasts (category b / 25%-50% glandular tissue). Current study was also evaluated with a Computer Aided Detection (CAD) system. No significant masses, calcifications, or other findings are seen in either breast. There has been no significant interval change. IMPRESSION: NEGATIVE There is no mammographic evidence of malignancy. A 1 year screening mammogram is recommended. Based on the Tyrer Cuzick model (a risk assessment model) the patient's lifetime risk is 4.7% and her 10 year risk is 2.8%. According to the ACR, ACS, and NCCN guidelines, an annual breast MRI exam along with mammogram is recommended if the patient's lifetime risk is 20% or greater. This exam was interpreted at Station ID: [id number]. NOTE: For mammograms, a report in lay terms will be sent to the patient. Approximately 15% of breast malignancies will not be visualized mammographically. In the management of a palpable breast mass, a negative mammogram must not discourage biopsy of a clinically suspicious lesion. Electronically Signed By: Janice chiang/anabelle:12/13/2022 11:33:36 letter sent: Normal Exam ACR BI-RADS Category 1: Negative 3341F
--- NOTE | 2022-12-13 08:51 | DI.RAD.S_ITS ---
PROCEDURE: XR LUMBAR SPINE 2-3V INDICATIONS: Lumbar back pain with Right radiculopathy TECHNIQUE: 3 views of the lumbar spine were acquired. COMPARISON: [facility], , MM SCREENING MAMMO , 12/13/2022, 9:16. FINDINGS: Bones: 5 [id number] vertebrae are present. Mild leftward curvature of the thoracolumbar spine. There is normal bony alignment. No vertebral body compression fractures. No suspicious bony lesions. Probable hemangioma of L4. Facet arthrosis in the lower lumbar spine. L2-3 and L3-4 have disc space narrowing. Soft tissues: Overlying bowel gas pattern is normal. No suspicious soft tissue calcifications. IMPRESSION: 1. Disc disease at L2-3 and L3-4. 2. Facet arthrosis in the lower lumbar spine. 3. Mild leftward curvature of the thoracolumbar spine. Dictated by: Marcos Kitchen M.D. on 12/13/2022 at 11:26 Approved by: Marcos Kitchen M.D. on 12/13/2022 at 11:29
== END ==
PROVIDERS: PCP Family Medicine; Referring Provider Family Medicine; Visit Provider Family Medicine
DX: Z12.31 Encounter for screening mammogram for malignant neoplasm of breast (principal); M51.16 Intervertebral disc disorders with radiculopathy, lumbar region; M51.17 Intervertebral disc disorders with radiculopathy, lumbosacral region; M48.061 Spinal stenosis, lumbar region without neurogenic claudication; M47.26 Other spondylosis with radiculopathy, lumbar region; M54.50 Low back pain, unspecified; G89.29 Other chronic pain
CPT/HCPCS: 72100; 72148; 77063; 77067

== ENCOUNTER → 2022-12-13 10:10 | Outpatient (CLI) | payer MEDICARE, OTHER, SELFPAY ==
--- NOTE | 2022-12-13 10:11 | DI.MRI.S_ITS ---
PROCEDURE: MR LUMBAR SPINE WO CON INDICATIONS: LBP W/HYPERREFLEXIA AND MUSCLE WEAKNESS ON RT TECHNIQUE: Noncontrast sagittal T1 spin echo and T2 fast echo, sagittal STIR, and T2 fast spin echo through the lumbar spine. In cases with scoliosis, additional coronal T2 fast spin echo may be performed. COMPARISON: None. FINDINGS: Image quality: Excellent. Alignment and Curvature: There is normal bony alignment. Bone Marrow: Marrow is of normal overall signal. No acute vertebral body compression fractures. Spinal Cord: Conus medullaris terminates at the L1 level. Visualized cord demonstrates normal signal and size. Paraspinous Soft Tissues: No paravertebral masses. T12-L1: No significant disc bulge. The foramina and central canal are patent. L1-L2: No significant disc bulge. The foramina and central canal are patent. L2-L3: The disc is desiccated consistent with degeneration. No significant disc bulge. The foramina and central canal are patent. L3-L4: Endplate degenerative changes and disc osteophytes. Facet hypertrophy on the left. The central canal is patent. L4-L5: Diffuse disc bulge and facet hypertrophy worse on the left. Central protrusion. Mild bilateral foraminal stenosis. Severe bilateral foraminal stenosis. Moderate central canal stenosis. L5-S1: Diffuse disc bulge with a central annular tear. The foramina and central canal are patent. IMPRESSION: 1. Multilevel degenerative disc disease as detailed above. 2. Moderate central canal stenosis at L4-5. Dictated by: Marcos Kitchen M.D. on 12/13/2022 at 11:55 Approved by: Marcos Kitchen M.D. on 12/13/2022 at 12:09
== END ==
PROVIDERS: PCP Family Medicine; Referring Provider Physician Assistant; Visit Provider Physician Assistant
DX: M51.16 Intervertebral disc disorders with radiculopathy, lumbar region (principal); M51.17 Intervertebral disc disorders with radiculopathy, lumbosacral region; M48.061 Spinal stenosis, lumbar region without neurogenic claudication
CPT/HCPCS: 72148

== ENCOUNTER 2022-12-26 13:09 | Outpatient (CLI) | payer MEDICARE, OTHER, SELFPAY ==
--- NOTE | 2022-12-26 13:11 | DI.RAD.S_ITS ---
PROCEDURE: PAIN L INTERLAMINAR/CAUDAL INJ INDICATIONS: SPONDYLOSIS COMPARISON: None. FINDINGS: Fluoroscopic spot filming was performed to verify placement of spinal needles at the right L4-L5 interlaminar level(s), as labeled on the films. Appropriate location(s) of the needle tip(s) was confirmed by injection of iodinated contrast. IMPRESSION: Access needle at right L4-L5 interlaminar space for translaminar epidural steroid injection. Dictated by: Luma Douglas MD, PhD on 12/26/2022 at 14:39 Approved by: Luma Douglas MD, PhD on 12/26/2022 at 14:40
[2022-12-26 13:20] VITALS: BP 156/85; PULSE 57; RESP 18; TEMP 36.1; O2SAT 100
[2022-12-26 13:50] VITALS: BP 167/81; PULSE 57; RESP 12; O2SAT 98
[2022-12-26] MEDS: methylPREDNISolone acetate 80 MG/ML VIAL INJ (13:53)
[2022-12-26] MEDS: IOPAMIDOL 15 ML VIAL 3 ML INJ (13:54)
[2022-12-26 13:55] VITALS: BP 168/89; PULSE 66; RESP 23; O2SAT 99
[2022-12-26] MEDS: BUPIVACAINE 0.25% (PF) VIAL 2 ML INJ (13:55)
[2022-12-26 14:00] VITALS: BP 157/82; PULSE 62; RESP 25; O2SAT 98
[2022-12-26 14:10] VITALS: BP 144/89; PULSE 77; RESP 16; O2SAT 100
--- NOTE | 2022-12-26 15:43 | P.PCN_ITS ---
Date/Time/Diagnoses Date of procedure: 12/26/22 Time of procedure: 14:00 Procedure Notes Physician: Campos Sanders Total Fluoroscopy time (seconds): 17 Total sedation minutes: 0 Procedure in detail & Post-procedure care: L4-5 Interlaminar Epidural Steroid Injection Indications: Amelia is presenting for treatment of lumbar radiculopathy with low back and leg pain. Preoperative diagnosis: Lumbar radiculopathy Postoperative diagnosis: Same Focused Examination: Ax3 Mood and affect are normal Vital Signs: VSS ASA: 2 Consent: Following review of allergies and potential side effects/complications, including, but not necessarily limited to, infection, allergic reaction, local tissue breakdown, stroke, temporary or permanent nerve injury, paralysis, and possible , the patient indicated that they understood and agreed to proc eed.? An informed consent document was signed by the patient, witnessed by a nurse and placed in the patient's chart.? Additionally, other treatment options including medications and physical therapy were reviewed with the patient. All questions were answered. Site was then marked. Anesthesia: Local Position: Prone Monitoring: NIBP, Pulse oximetry, 3 lead EKG Needle used: 18 G 3.5? Tuohy Contrast: Isovue 300M Injectate: Depo-Medrol 80 mg with 0.25% Bupivacaine 2 mL Technique: The skin was prepped with chloraprep and then draped in a sterile fashion. Time out was performed as per protocol. Oxygen applied via NC. Skin and subcutaneous structures of the needle entry site was then infiltrated with 3 mL of lidocaine 1%. Under AP, lateral and contralateral oblique fluoroscopic control, the Tuohy needle was guided into the L4-5 epidural space. The space was accessed with loss of resistance technique. Isovue 300M was then injected and the spread was consistent with the epidural space. There was no evidence for intravascular or intrathecal uptake. After negative aspiration, the above- mentioned injectate was then slowly administered and the needle withdrawn. The patient expressed no unusual discomfort or paresthesias during the injection. Band-Aids applied to injection sites. EBL: less than 1 ml Complications: None Post Procedure: Patient was taken to the recovery and monitored. The patient was provided a Pain Log to continue to record the patient's response to the target- specific procedure prior to the patient's follow-up visit with the referring physician. Patient was stable upon discharge. Detailed post procedure instructions were provided. Patient was asked to call in the event of worsening pain, fever, weakness, numbness or bladder or bowel incontinence.
== END 2022-12-26 14:10 | disposition home or self-care (01) ==
PROVIDERS: PCP Family Medicine; Referring Provider Anesthesiology; Visit Provider Anesthesiology
DX: M54.16 Radiculopathy, lumbar region (principal)
CPT/HCPCS: 62323; J1040; J3490

== ENCOUNTER → 2023-03-28 11:38 | Outpatient (CLI) | payer MEDICARE, OTHER, SELFPAY ==
--- NOTE | 2023-03-28 | DI.MRI.S_ITS ---
PROCEDURE: MR SHOULDER LT WO CON INDICATIONS: PAIN IN JOINT OF LEFT SHOULDER TECHNIQUE: Noncontrast oblique coronal T2 fast spin echo with fat saturation, oblique sagittal T1 spin echo and T2 fast spin echo with fat saturation, axial T1 spin echo and T2 fast spin echo with fat saturation through the shoulder. COMPARISON: None. FINDINGS: Image quality: Excellent. Rotator cuff: Low-grade articular surface partial-thickness tear involving distal supraspinatus at its insertion on the humeral head is seen extending to musculotendinous junction. Distal infraspinatus tendinosis is seen. Distal subscapularis tendon is intact. No full-thickness rotator cuff tendon rupture. Sagittal images demonstrate no significant rotator cuff muscle atrophy. Bones and bursae: Marrow edema is seen involving anterior and lateral portion of humeral head without discrete fracture line. Marrow edema is also noted involving greater tuberosity. [id number] acromioclavicular joint osteoarthritic changes are seen with joint space narrowing, subchondral sclerosis and downward osteophyte formation depressing the musculotendinous junction of supraspinatus. Small to moderate amount of glenohumeral joint effusion is seen. No significant subacromial subdeltoid bursal fluid. Capsule and soft tissues: Signal abnormality, contour irregularity is seen in superior anterior labrum at 1 to 2 o'clock position suggestive of superior anterior labral tear. The long head of the biceps tendon is thickened. The rotator interval appears normal, without fibrosis. The coracohumeral ligament is normal in thickness. IMPRESSION: 1. Low-grade articular surface partial-thickness tear involving distal supraspinatus extending to musculotendinous junction. Distal infraspinatus tendinosis. No full-thickness rotator cuff tendon rupture. 2. Nonspecific marrow edema involving humeral head as above likely represent contusion. [id number]-[id number] acromioclavicular joint osteoarthritis. No fracture or dislocation. Small to moderate amount of joint effusion, no gross loose bodies. 3. Suggestion of superior anterior labral tear at 1 to 2 o'clock position. 4. Proximal long head of biceps tendinosis. Dictated by: Sarmad Finch M.D. on 03/29/2023 at 16:34 Approved by: Sarmad Finch M.D. on 03/29/2023 at 16:40
== END ==
PROVIDERS: Family Provider Family Medicine; PCP Family Medicine; Referring Provider Orthopaedic Surgery; Visit Provider Orthopaedic Surgery
DX: M75.112 Incomplete rotator cuff tear or rupture of left shoulder, not specified as traumatic (principal); M19.012 Primary osteoarthritis, left shoulder; M25.512 Pain in left shoulder
CPT/HCPCS: 73221

== ENCOUNTER 2023-04-02 07:30 | Outpatient (RCR) | payer MEDICARE, OTHER, SELFPAY ==
--- NOTE | 2023-02-13 16:52 | PT.OIE ---
Current Diagnoses Adhesive capsulitis of left shoulder (02/13/23) Past Medical History (Last Reviewed 01/16/23 @ 08:47 by Campos Sanders MD) Abnormal Pap smear of cervix (~1995) Chicken pox Foot pain (~2014) Irritable bowel syndrome Measles Plantar warts Rosacea Situational anxiety Tinnitus (~1989) Past Surgical History (Last Reviewed 01/16/23 @ 08:47 by Campos Sanders MD) History of hysterectomy (~1995) History of tonsillectomy (~1960) Visit Care Team Role Provider Type Ness Amaya DO Family Provider Physician Primary Care Provider Specialty: Family Practice Address: [address] [place] [address], [place], [address] Email: [email or web address] Chantale Moffett MD Attending Provider Physician Referring Provider Specialty: Orthopedics Orthopedic Surgery Address: [address] [place] [address], [address] Email: [email or web address] Physical Therapy Initial Evaluation PT-OP-A Visit Information Start: 02/13/23 15:33 Freq: Status: Active Protocol: Document 02/13/23 15:35 ES (Rec: 02/13/23 16:52 ES [id number]) Out-Patient Physical Therapy Visit Information Visit Information Visit Type Initial Evaluation Visit Start Time 15:34 Visit Stop Time 16:15 Total Visit Minutes 41 Visit Number 1 Evaluation Information Evaluation Date 02/13/23 PT-OP-B Current Condition Start: 02/13/23 15:33 Freq: Status: Active Protocol: Document 02/13/23 15:35 ES (Rec: 02/13/23 16:52 ES [id number]) Current Condition History of Current Condition Onset Date 1.5 years ago Current Complaints L shoulder pain, stiffness History of Current Condition Fell onto concrete and fractured the L shoulder. No surgery. Was in a sling for a couple months, then did PT after 1-1.5 months after the initial injury. Did as much PT as the insurance covered but didn't get her motion back. Then was caring for her grandbaby and her shoulder gave out. Had a manipulation under anesthesia yesterday along with steroid injection. Future Testing and Treatments Planned Will try PT first, if that's not successful will have arthroscopic surgery to remove some scar tissue. Treatment Goals Patient/Caregiver Goals To get as much ROM as I can get, to not be in pain. PT-OP-C Subjective Start: 02/13/23 15:33 Freq: Status: Active Protocol: Document 02/13/23 15:35 ES (Rec: 02/13/23 16:52 ES [id number]) OP-PT Subjective Patient Comments Patient Comments Patient reported her shoulder felt great yesterday after the manipulation, but today feels really sore. Patient Questionnaires Quick Dash- Upper Extremity Quick Dash UE Score 47.7 Quick Dash UE Impairment 40 to 59% Impaired (Score 40- 59) OP-PT Pain Assessment Location L shoulder Pain Location Details entire shoulder, especially anterior, lateral, and superior Scale Used Worst 8/10, best 4/10, average 5/10 Description Aching,Sharp,With Movement Description- Other Crackling, catching Frequency Constant Pain Aggravating Factors Changing Position,ADL's, Activity,Exercise Pain Alleviating Factors Inactivity,Position Other Pain Alleviating Factors Lying on R side PT-OP-J Posture/Palpation/Skin Start: 02/13/23 15:33 Freq: Status: Active Protocol: Document 02/13/23 15:35 ES (Rec: 02/13/23 16:52 ES [id number]) Posture Evaluation Comments Posture Comments Unremarkable; tends to elevate L shoulder during humeral elevation/flexion/abduction. Increased muscle bulk in L upper trap. PT-OP-K Range of Motion Start: 02/13/23 15:33 Freq: Status: Active Protocol: Document 02/13/23 15:35 ES (Rec: 02/13/23 16:52 ES [id number]) Shoulder Goniometric Range of Motion Shoulder Right Active Testing Position Sitting Flexion 150 Abduction 155 External Rotation at 0 degrees Abduction 55 Internal Rotation 80 Internal Rotation Behind Back (text) T4 Comments ER behind head to T3 Left Passive Shoulder ROM WFL No Testing Position Supine Flexion 130 Abduction 125 External Rotation at 0 degrees Abduction 30 Internal Rotation 80 Left Active Shoulder ROM WFL No Testing Position Sitting Flexion 40 Abduction 40 External Rotation at 0 degrees Abduction 15 Internal Rotation 60 Internal Rotation Behind Back (text) PSIS Comments ER behind head to C6 Patient reports her range was better before yesterday but still limited. PT-OP-T Assessment and Plan Start: 06/13/23 15:33 Freq: Status: Active Protocol: Document 02/13/23 15:35 ES (Rec: 02/13/23 16:52 ES [id number]) Physical Therapy Assessment Rehab Potential Rehabilitation Potential Good Evaluation Complexity Number of Personal Factors/Comorbidities 1-2 Number of Body Systems Impaired 1-2 Clinical Presentation at Evaluation Evolving Impairments Impairments Functional Activities,Pain,ROM ,Strength Goals 3 Impairment Function Fdc Goal (LTG) Patient will be able to lift and carry 20 lbs in L arm at side without increased pain to be able to care for grandson. LTG Duration 6 weeks (03/27/23) 2 Impairment Function Fdc Goal (LTG) Patient will have improved QuickDASH score to 31% or less indicating significant improvement in function. LTG Duration 6 weeks (03/27/23) 1 Impairment ROM Short Term Goal (STG) Patient will increase AROM L shoulder: flexion and abduction to 120 degrees, ER to 30 degrees, IR to 80 degrees. STG Duration 3 weeks (03/07/23) Engineering Secretary Goal (LTG) Patient will increase AROM L shoulder: flexion to 140 degrees, ER to 45 degrees and to functionally to T1, IR functionally to L4. LTG Duration 6 weeks (03/27/23) Assessment Summary Assessment Patient is a 67 year old female with a hx of L shoulder fracture with persistant L shoulder pain and stiffness now s/p L shoulder SORAIDA. She presents with pain, limited active > passive ROM, and decreased strength 2/2 pain. She also demonstrates tightness in L upper trap due to compensation during humeral elevation. She is functionally limited in her ability to raise her arm up, behind her head, behind her back, and lift and carry objects in her L arm as well as care for her grandson. She was able to tolerate initiation of AAROM ex's with tolerable pain levels, and demonstrated increased AROM with decreased pain following completion of ex's in today's visit. She will benefit from skilled PT to address these problems in order to improve functional use of LUE. Physical Therapy Plan Frequency and Duration Frequency of Treatment 2x/Week Duration of treatment (weeks) 6 Plan of Care Start Date 02/13/23 Plan of Care End Date 03/27/23 Therapeutic Interventions Therapeutic Interventions Home Exercise Program,Joint Mobilizations,Manual Therapy, Patient/Caregiver Education, Self-Care/Home Management,Soft Tissue Mobilization,Taping, Therapeutic Activities, Therapeutic Exercises Modalities Cold Pack/Ice Massage,Electric Stimulation,Hot Packs, Ultrasound Next Visit Focus/Plan Next Note Type Treatment Note Next Visit Plan STM, joint mobs as needed for pain/stiffness. PROM all planes. Review HEP and progress AAROM as needed.
--- NOTE | 2023-02-13 16:53 | PT.OPPOC ---
Physical, Occupational & Speech Therapy At [facility] Current Diagnoses Adhesive capsulitis of left shoulder (02/13/23) Visit Care Team Role Provider Type Ness Amaya DO Family Provider Physician Primary Care Provider Specialty: Family Practice Address: [address] [place] [address], [facility] [place], [address] Email: [email or web address] Chantale Moffett MD Attending Provider Physician Referring Provider Specialty: Orthopedics Orthopedic Surgery Address: [address] [place] [address], [id number] Email: [email or web address] Plan Of Care PT-OP-T Assessment and Plan Start: 02/13/23 15:33 Freq: Status: Active Protocol: Document 02/13/23 15:35 ES (Rec: 02/13/23 16:52 ES [id number]) Physical Therapy Assessment Rehab Potential Rehabilitation Potential Good Evaluation Complexity Number of Personal Factors/Comorbidities 1-2 Number of Body Systems Impaired 1-2 Clinical Presentation at Evaluation Evolving Impairments Impairments Functional Activities,Pain,ROM ,Strength Goals 3 Impairment Function Usp Goal (LTG) Patient will be able to lift and carry 20 lbs in L arm at side without increased pain to be able to care for grandson. LTG Duration 6 weeks (03/27/23) 2 Impairment Function Medicaid Business Analyst Goal (LTG) Patient will have improved QuickDASH score to 31% or less indicating significant improvement in function. LTG Duration 6 weeks (03/27/23) 1 Impairment ROM Short Term Goal (STG) Patient will increase AROM L shoulder: flexion and abduction to 120 degrees, ER to 30 degrees, IR to 80 degrees. STG Duration 3 weeks (03/07/23) Usp Goal (LTG) Patient will increase AROM L shoulder: flexion to 140 degrees, ER to 45 degrees and to functionally to T1, IR functionally to L4. LTG Duration 6 weeks (03/27/23) Assessment Summary Assessment Patient is a 67 year old female with a hx of L shoulder fracture with persistant L shoulder pain and stiffness now s/p L shoulder SORAIDA. She presents with pain, limited active > passive ROM, and decreased strength 2/2 pain. She also demonstrates tightness in L upper trap due to compensation during humeral elevation. She is functionally limited in her ability to raise her arm up, behind her head, behind her back, and lift and carry objects in her L arm as well as care for her grandson. She was able to tolerate initiation of AAROM ex's with tolerable pain levels, and demonstrated increased AROM with decreased pain following completion of ex's in today's visit. She will benefit from skilled PT to address these problems in order to improve functional use of LUE. Physical Therapy Plan Frequency and Duration Frequency of Treatment 2x/Week Duration of treatment (weeks) 6 Plan of Care Start Date 02/13/23 Plan of Care End Date 03/27/23 Therapeutic Interventions Therapeutic Interventions Home Exercise Program,Joint Mobilizations,Manual Therapy, Patient/Caregiver Education, Self-Care/Home Management,Soft Tissue Mobilization,Taping, Therapeutic Activities, Therapeutic Exercises Modalities Cold Pack/Ice Massage,Electric Stimulation,Hot Packs, Ultrasound Next Visit Focus/Plan Next Note Type Treatment Note Next Visit Plan STM, joint mobs as needed for pain/stiffness. PROM all planes. Review HEP and progress AAROM as needed. Plan of Care Dates Plan of Care Start Date 02/13/23 Plan of Care End Date 03/27/23 Electronically Signed by: Inés Moffett, PT 02/13/23 6154 If you are in agreement with this Plan of Care, please return a signed and dated copy. I have reviewed this Plan of Care and certify that the skilled therapy services above are required to meet the patient?s needs. Physician Signature Date Printed Name and Credentials Clinical Instructor Signature Printed Name and Credentials
--- NOTE | 2023-02-15 08:30 | PT.OTN ---
Addendum entered and electronically signed by Debbie Anderson, EQUIPMENT COORDINATOR 02/18/23 12:56: HOs provided for theracane/ball wall/open book. Original Note: Current Diagnoses Adhesive capsulitis of left shoulder (02/15/23) Physical Therapy Treatment Note PT-OP-A Visit Information Start: 02/13/23 15:33 Freq: Status: Active Protocol: Document 02/15/23 07:30 SP (Rec: 02/15/23 09:05 SP [id number]) Out-Patient Physical Therapy Visit Information Visit Information Visit Type Treatment Note Visit Start Time 07:30 Visit Stop Time 08:30 Total Visit Minutes 60 Visit Number 2 Number of EQUIPMENT COORDINATOR Visits 1 Evaluation Information Evaluation Date 02/13/23 PT-OP-B Current Condition Start: 02/13/23 15:33 Freq: Status: Active Protocol: Document 02/13/23 15:35 ES (Rec: 02/13/23 16:52 ES [id number]) Current Condition History of Current Condition Onset Date 1.5 years ago Current Complaints L shoulder pain, stiffness History of Current Condition Fell onto concrete and fractured the L shoulder. No surgery. Was in a sling for a couple months, then did PT after 1-1.5 months after the initial injury. Did as much PT as the insurance covered but didn't get her motion back. Then was caring for her grandbaby and her shoulder gave out. Had a manipulation under anesthesia yesterday along with steroid injection. Future Testing and Treatments Planned Will try PT first, if that's not successful will have arthroscopic surgery to remove some scar tissue. Treatment Goals Patient/Caregiver Goals To get as much ROM as I can get, to not be in pain. PT-OP-C Subjective Start: 02/13/23 15:33 Freq: Status: Active Protocol: Document 02/15/23 07:30 SP (Rec: 02/15/23 09:05 SP [id number]) OP-PT Subjective Patient Comments Patient Comments Pt reports taking alternating Tylenol and Ibuprofen and ice for pain. SHe stated was pretty sore after last tx but compliant with HEP given so far and encouraged helped. PT-OP-J Posture/Palpation/Skin Start: 02/13/23 15:33 Freq: Status: Active Protocol: Document 02/13/23 15:35 ES (Rec: 02/13/23 16:52 ES [id number]) Posture Evaluation Comments Posture Comments Unremarkable; tends to elevate L shoulder during humeral elevation/flexion/abduction. Increased muscle bulk in L upper trap. PT-OP-K Range of Motion Start: 02/13/23 15:33 Freq: Status: Active Protocol: Document 02/13/23 15:35 ES (Rec: 02/13/23 16:52 ES [id number]) Shoulder Goniometric Range of Motion Shoulder Right Active Testing Position Sitting Flexion 150 Abduction 155 External Rotation at 0 degrees Abduction 55 Internal Rotation 80 Internal Rotation Behind Back (text) T4 Comments ER behind head to T3 Left Passive Shoulder ROM WFL No Testing Position Supine Flexion 130 Abduction 125 External Rotation at 0 degrees Abduction 30 Internal Rotation 80 Left Active Shoulder ROM WFL No Testing Position Sitting Flexion 40 Abduction 40 External Rotation at 0 degrees Abduction 15 Internal Rotation 60 Internal Rotation Behind Back (text) PSIS Comments ER behind head to C6 Patient reports her range was better before yesterday but still limited. PT-OP-Q Treatments Start: 02/13/23 15:33 Freq: Status: Active Protocol: Document 02/15/23 07:30 SP (Rec: 02/15/23 09:05 SP [id number]) Therapeutic Exercises Supine Exercises PROM L shld Supine Exercise Name FF, ABD, ER, HABD Reps/Minutes 5 min total Comments MWM FM w/ inferior glide/ scapular facilitation WAND Supine Exercise Name REviewed HEP : FF, ER Side left Resistance AAROM Reps/Minutes x10 reps, pause w/ 3-5 sec stretch Comments cued 90 deg elbow, at angle during ER Sidelying Exercises open book Sidelying Exercise Name Lshld added Reps/Minutes x5 w/ head turn Comments long and short axis Sitting Exercises UT, LS stretch Sitting Exercise Name reviewed HEP Reps/Minutes 30 x2 Standing Exercises AAROM Standing Exercise Name HEP reviewed Side left Resistance AAROM Equipment Used wand Reps/Minutes x10 reps Manual Therapy Treatment Soft Tissue Mobilization L shld Body Location UT, LS, suprasp,Rhomboid Mobilization Type Strumming,Sustained Pressure Intensity/Depth Moderate Body Position Sidelying Comments manual and w/PNF FM PROM Joint Mobilizations J scapulothoracic Direction inferior, posterior Grade II Body Position Sidelying Comments manual and ed on self mobility support added open book for home carry over L GH Jt Joint L Direction posterior, inferior Grade II Body Position Supine PT-OP-R Modalities Start: 02/13/23 15:33 Freq: Status: Active Protocol: Document 02/15/23 07:30 SP (Rec: 02/15/23 09:05 SP [id number]) Electric Stimulation Electric Stimulation L shld Body Location A/P/Lateral Duration (Minutes) 10 Intensity 14 Combined With Heat/Cold Hot Pack PT-OP-T Assessment and Plan Start: 02/13/23 15:33 Freq: Status: Active Protocol: Document 02/15/23 07:30 SP (Rec: 02/15/23 09:05 SP [id number]) Physical Therapy Assessment Goals 3 Impairment Function Lpn Care Manager Goal (LTG) Patient will be able to lift and carry 20 lbs in L arm at side without increased pain to be able to care for grandson. LTG Duration 6 weeks (03/27/23) 2 Impairment Function Lpn Care Manager Goal (LTG) Patient will have improved QuickDASH score to 31% or less indicating significant improvement in function. LTG Duration 6 weeks (03/27/23) 1 Impairment ROM Short Term Goal (STG) Patient will increase AROM L shoulder: flexion and abduction to 120 degrees, ER to 30 degrees, IR to 80 degrees. STG Duration 3 weeks (03/07/23) Lpn Care Manager Goal (LTG) Patient will increase AROM L shoulder: flexion to 140 degrees, ER to 45 degrees and to functionally to T1, IR functionally to L4. LTG Duration 6 weeks (03/27/23) Assessment Summary Assessment Pt good response improved ER stretch w/ use wand and better understanding scapular mobility post manual with ability to carryover performance added open book for home. Physical Therapy Plan Frequency and Duration Frequency of Treatment 2x/Week Duration of treatment (weeks) 6 Plan of Care Start Date 02/13/23 Plan of Care End Date 03/27/23 Therapeutic Interventions Therapeutic Interventions Home Exercise Program,Joint Mobilizations,Manual Therapy, Patient/Caregiver Education, Self-Care/Home Management,Soft Tissue Mobilization,Taping, Therapeutic Activities, Therapeutic Exercises Modalities Cold Pack/Ice Massage,Electric Stimulation,Hot Packs, Ultrasound Next Visit Focus/Plan Next Note Type Treatment Note Next Visit Plan Review open book, add self STMs use ball wall/thercane, subscap if needed. POC: STM, joint mobs as needed for pain/stiffness. PROM all planes. Review HEP and progress AAROM as needed.
--- NOTE | 2023-02-19 12:43 | PT.OTN ---
Current Diagnoses Adhesive capsulitis of left shoulder (02/19/23) Physical Therapy Treatment Note PT-OP-A Visit Information Start: 02/13/23 15:33 Freq: Status: Active Protocol: Document 02/19/23 11:45 ES (Rec: 02/19/23 12:41 ES [id number]) Out-Patient Physical Therapy Visit Information Visit Information Visit Type Treatment Note Visit Start Time 11:45 Visit Stop Time 12:38 Total Visit Minutes 53 Visit Number 3 Number of AIRPORT SKILLED MAINTENANCE SUPERVISOR Visits 0 PT-OP-B Current Condition Start: 02/13/23 15:33 Freq: Status: Active Protocol: Document 02/13/23 15:35 ES (Rec: 02/13/23 16:52 ES [id number]) Current Condition History of Current Condition Onset Date 1.5 years ago Current Complaints L shoulder pain, stiffness History of Current Condition Fell onto concrete and fractured the L shoulder. No surgery. Was in a sling for a couple months, then did PT after 1-1.5 months after the initial injury. Did as much PT as the insurance covered but didn't get her motion back. Then was caring for her grandbaby and her shoulder gave out. Had a manipulation under anesthesia yesterday along with steroid injection. Future Testing and Treatments Planned Will try PT first, if that's not successful will have arthroscopic surgery to remove some scar tissue. Treatment Goals Patient/Caregiver Goals To get as much ROM as I can get, to not be in pain. PT-OP-C Subjective Start: 02/13/23 15:33 Freq: Status: Active Protocol: Document 02/19/23 11:45 ES (Rec: 02/19/23 12:41 ES [id number]) OP-PT Subjective Patient Comments Patient Comments Patient reported that she is pleased with how well her shoulder is moving. Has been doing some of her exercises without the cane. Is having some catching in her shoulder when doing ER and also sometimes with abduction. PT-OP-J Posture/Palpation/Skin Start: 02/13/23 15:33 Freq: Status: Active Protocol: Document 02/13/23 15:35 ES (Rec: 02/13/23 16:52 ES [id number]) Posture Evaluation Comments Posture Comments Unremarkable; tends to elevate L shoulder during humeral elevation/flexion/abduction. Increased muscle bulk in L upper trap. PT-OP-K Range of Motion Start: 02/13/23 15:33 Freq: Status: Active Protocol: Document 02/13/23 15:35 ES (Rec: 02/13/23 16:52 ES [id number]) Shoulder Goniometric Range of Motion Shoulder Right Active Testing Position Sitting Flexion 150 Abduction 155 External Rotation at 0 degrees Abduction 55 Internal Rotation 80 Internal Rotation Behind Back (text) T4 Comments ER behind head to T3 Left Passive Shoulder ROM WFL No Testing Position Supine Flexion 130 Abduction 125 External Rotation at 0 degrees Abduction 30 Internal Rotation 80 Left Active Shoulder ROM WFL No Testing Position Sitting Flexion 40 Abduction 40 External Rotation at 0 degrees Abduction 15 Internal Rotation 60 Internal Rotation Behind Back (text) PSIS Comments ER behind head to C6 Patient reports her range was better before yesterday but still limited. PT-OP-Q Treatments Start: 02/13/23 15:33 Freq: Status: Active Protocol: Document 02/19/23 11:45 ES (Rec: 02/19/23 12:41 ES [id number]) Therapeutic Exercises Standing Exercises Doorway isometrics Standing Exercise Name IR/ER Reps/Minutes 5x10s ea Comments Added to HEP Manual Therapy Treatment Soft Tissue Mobilization L shld Body Location Subscap, teres major/minor, pec major/minor, anterior delt Mobilization Type Myofascial Release,Sustained Pressure Intensity/Depth Moderate Body Position Supine Comments Tack and stretch with IR/ER Joint Mobilizations L GH Jt Direction posterior, inferior Grade III Body Position Supine Comments In 90 degrees abduction Taping K-tape Body Location Anterior L shoulder Type of Tape Kinesio Tape Comments Short I strip anchored at anterior L shoulder over anterior delt and bicep tendon , with 70% stretch medial and caudal to assist with soft tissue mobility for decreased pain during ER/IR PT-OP-R Modalities Start: 02/13/23 15:33 Freq: Status: Active Protocol: Document 02/19/23 11:45 ES (Rec: 02/19/23 12:41 ES [id number]) Electric Stimulation Electric Stimulation L shld Body Location A/P/Lateral Duration (Minutes) 10 Intensity 15 Target/Sweep Sweep Combined With Heat/Cold Hot Pack PT-OP-T Assessment and Plan Start: 02/13/23 15:33 Freq: Status: Active Protocol: Document 02/19/23 11:45 ES (Rec: 02/19/23 12:41 ES [id number]) Physical Therapy Assessment Impairments Impairments Functional Activities,Pain,ROM ,Strength Goals 3 Impairment Function Shelter Goal (LTG) Patient will be able to lift and carry 20 lbs in L arm at side without increased pain to be able to care for grandson. LTG Duration 6 weeks (03/27/23) 2 Impairment Function Shelter Goal (LTG) Patient will have improved QuickDASH score to 31% or less indicating significant improvement in function. LTG Duration 6 weeks (03/27/23) 1 Impairment ROM Short Term Goal (STG) Patient will increase AROM L shoulder: flexion and abduction to 120 degrees, ER to 30 degrees, IR to 80 degrees. STG Duration 3 weeks (03/07/23) Mobile Electronics Installer Goal (LTG) Patient will increase AROM L shoulder: flexion to 140 degrees, ER to 45 degrees and to functionally to T1, IR functionally to L4. LTG Duration 6 weeks (03/27/23) Progress Towards Goals Progress Towards Goals Progressing Toward Goals Assessment Summary Assessment Patient limited in ER at 0 degrees abduction and IR at 90 degrees abduction, both improved with manual mobilization of soft tissue at anterior shoulder, likely removing physical barrier from anterior delt and bicep tendon. She was able to tolerate isometrics for IR/ER without significant production of pain. Physical Therapy Plan Frequency and Duration Frequency of Treatment 2x/Week Duration of treatment (weeks) 6 Plan of Care Start Date 02/13/23 Plan of Care End Date 03/27/23 Therapeutic Interventions Therapeutic Interventions Home Exercise Program,Joint Mobilizations,Manual Therapy, Patient/Caregiver Education, Self-Care/Home Management,Soft Tissue Mobilization,Taping, Therapeutic Activities, Therapeutic Exercises Modalities Cold Pack/Ice Massage,Electric Stimulation,Hot Packs, Ultrasound Next Visit Focus/Plan Next Note Type Treatment Note Next Visit Plan Review open book, add self STMs use ball wall/thercane, subscap if needed. Progress AROM, isometrics as indicated.
--- NOTE | 2023-02-22 08:24 | PT.OTN ---
Current Diagnoses Adhesive capsulitis of left shoulder (02/22/23) Physical Therapy Treatment Note PT-OP-A Visit Information Start: 02/13/23 15:33 Freq: Status: Active Protocol: Document 02/22/23 07:30 SP (Rec: 02/22/23 08:25 SP [id number]) Out-Patient Physical Therapy Visit Information Visit Information Visit Type Treatment Note Visit Start Time 07:30 Visit Stop Time 08:24 Total Visit Minutes 54 Visit Number 4 Number of REHABILITATION INSPECTOR Visits 1 Evaluation Information Evaluation Date 02/13/23 PT-OP-B Current Condition Start: 02/13/23 15:33 Freq: Status: Active Protocol: Document 02/13/23 15:35 ES (Rec: 02/13/23 16:52 ES [id number]) Current Condition History of Current Condition Onset Date 1.5 years ago Current Complaints L shoulder pain, stiffness History of Current Condition Fell onto concrete and fractured the L shoulder. No surgery. Was in a sling for a couple months, then did PT after 1-1.5 months after the initial injury. Did as much PT as the insurance covered but didn't get her motion back. Then was caring for her grandbaby and her shoulder gave out. Had a manipulation under anesthesia yesterday along with steroid injection. Future Testing and Treatments Planned Will try PT first, if that's not successful will have arthroscopic surgery to remove some scar tissue. Treatment Goals Patient/Caregiver Goals To get as much ROM as I can get, to not be in pain. PT-OP-C Subjective Start: 02/13/23 15:33 Freq: Status: Active Protocol: Document 02/22/23 07:30 SP (Rec: 02/22/23 08:25 SP [id number]) OP-PT Subjective Patient Comments Patient Comments Pt reports was sore in L shld but felt the deeper manual was very helpful. Compliant with isometrics added at wall. She stated ROM better, still limited but if force can get it to get passed the block of ABD w/ ER. Pt reported didn't think Ktaping helped and noted some skin pink irritation so removed last night. Still light pink in color when arrived. PT-OP-J Posture/Palpation/Skin Start: 02/13/23 15:33 Freq: Status: Active Protocol: Document 02/13/23 15:35 ES (Rec: 02/13/23 16:52 ES [id number]) Posture Evaluation Comments Posture Comments Unremarkable; tends to elevate L shoulder during humeral elevation/flexion/abduction. Increased muscle bulk in L upper trap. PT-OP-K Range of Motion Start: 02/13/23 15:33 Freq: Status: Active Protocol: Document 02/13/23 15:35 ES (Rec: 02/13/23 16:52 ES [id number]) Shoulder Goniometric Range of Motion Shoulder Right Active Testing Position Sitting Flexion 150 Abduction 155 External Rotation at 0 degrees Abduction 55 Internal Rotation 80 Internal Rotation Behind Back (text) T4 Comments ER behind head to T3 Left Passive Shoulder ROM WFL No Testing Position Supine Flexion 130 Abduction 125 External Rotation at 0 degrees Abduction 30 Internal Rotation 80 Left Active Shoulder ROM WFL No Testing Position Sitting Flexion 40 Abduction 40 External Rotation at 0 degrees Abduction 15 Internal Rotation 60 Internal Rotation Behind Back (text) PSIS Comments ER behind head to C6 Patient reports her range was better before yesterday but still limited. PT-OP-Q Treatments Start: 02/13/23 15:33 Freq: Status: Active Protocol: Document 02/22/23 07:30 SP (Rec: 02/22/23 08:25 SP [id number]) Therapeutic Exercises Supine Exercises AROM over foam roller Supine Exercise Name added to HEP: FF, Ts, Ws, pec stretch Side bilateral Resistance AROM Reps/Minutes brief trial end tx: 3 reps each direction Comments Improvement in AROM reports feeling, improved scap posterior settling PROM L shld Supine Exercise Name w/ manual: FF, ER Side left Comments good feedback response Sidelying Exercises open book Sidelying Exercise Name Lshld added Reps/Minutes x5 w/ head turn 5 breath hold Comments long axis- good feedback stretch Sitting Exercises Eccentric AAROM Sitting Exercise Name Trial next: eccentric FF, ABD, scaption, abd/ER if able w/ out compensations Side left Resistance TB #1-2 Standing Exercises self STMs Standing Exercise Name tennis ball wall: pec minor, distal major, infrasp Equipment Used broom handle: teres minor, subscap Comments good feedback self ability get deeper massage apply home Doorway isometrics Standing Exercise Name IR/ER- added HEP Reps/Minutes 5x10SH ea Comments good form Manual Therapy Treatment Soft Tissue Mobilization L shld Body Location L Subscap, teres major/minor, pec major/minor, anterior delt , Tricep, SA Mobilization Type Myofascial Release,Sustained Pressure Intensity/Depth Moderate Body Position Supine and side Comments suipne and sidelying: Tack and stretch with FM (passive and active): IR/ER, forward punch, scaption small range Joint Mobilizations J scapulothoracic Direction inferior, posterior Grade II Body Position Sidelying Comments manual and review open book L GH Jt Direction posterior, inferior Grade II Body Position Supine Comments In 80-90 degrees abduction, w/ PROM IR/ ER/ABD PT-OP-R Modalities Start: 02/13/23 15:33 Freq: Status: Active Protocol: Document 02/22/23 07:30 SP (Rec: 02/22/23 08:25 SP [id number]) Electric Stimulation Electric Stimulation L shld Body Location A/P/Lateral Duration (Minutes) 10 Intensity 15 Target/Sweep Sweep Combined With Heat/Cold Hot Pack PT-OP-T Assessment and Plan Start: 02/13/23 15:33 Freq: Status: Active Protocol: Document 02/22/23 07:30 SP (Rec: 02/22/23 08:25 SP [id number]) Physical Therapy Assessment Goals 3 Impairment Function [facility] Goal (LTG) Patient will be able to lift and carry 20 lbs in L arm at side without increased pain to be able to care for grandson. LTG Duration 6 weeks (03/27/23) 2 Impairment Function Communications Tech Goal (LTG) Patient will have improved QuickDASH score to 31% or less indicating significant improvement in function. LTG Duration 6 weeks (03/27/23) 1 Impairment ROM Short Term Goal (STG) Patient will increase AROM L shoulder: flexion and abduction to 120 degrees, ER to 30 degrees, IR to 80 degrees. STG Duration 3 weeks (03/07/23) Communications Tech Goal (LTG) Patient will increase AROM L shoulder: flexion to 140 degrees, ER to 45 degrees and to functionally to T1, IR functionally to L4. LTG Duration 6 weeks (03/27/23) Assessment Summary Assessment Pt responded well to manual and ed with performance understanding over musculature proximal to L GH Jt with improved ROM OH and AAROM abd/ ER (not measured) over foam roller. Pt benefit from continued manual and trial eccentric FF, ABD, ABD/ ER with theraband assist seated next tx. Physical Therapy Plan Frequency and Duration Frequency of Treatment 2x/Week Duration of treatment (weeks) 6 Plan of Care Start Date 02/13/23 Plan of Care End Date 03/27/23 Therapeutic Interventions Therapeutic Interventions Home Exercise Program,Joint Mobilizations,Manual Therapy, Patient/Caregiver Education, Self-Care/Home Management,Soft Tissue Mobilization,Taping, Therapeutic Activities, Therapeutic Exercises Modalities Cold Pack/Ice Massage,Electric Stimulation,Hot Packs, Ultrasound Next Visit Focus/Plan Next Note Type Treatment Note Next Visit Plan Recheck self STMs: ball/wall, theracane, broom handle. AROM progress over foam roller. Trial eccentric ROM w/ theraband assist. POC: Progress AROM, isometrics as indicated.
--- NOTE | 2023-02-26 16:41 | PT.OTN ---
Current Diagnoses Adhesive capsulitis of left shoulder (02/26/23) Physical Therapy Treatment Note PT-OP-A Visit Information Start: 02/13/23 15:33 Freq: Status: Active Protocol: Document 02/26/23 08:23 ES (Rec: 02/26/23 09:17 ES [id number]) Out-Patient Physical Therapy Visit Information Visit Information Visit Type Treatment Note Visit Start Time 08:29 Visit Stop Time 09:16 Total Visit Minutes 47 Visit Number 5 Number of MOLD CARPENTER Visits 0 Evaluation Information Evaluation Date 02/13/23 PT-OP-B Current Condition Start: 02/13/23 15:33 Freq: Status: Active Protocol: Document 02/13/23 15:35 ES (Rec: 02/13/23 16:52 ES [id number]) Current Condition History of Current Condition Onset Date 1.5 years ago Current Complaints L shoulder pain, stiffness History of Current Condition Fell onto concrete and fractured the L shoulder. No surgery. Was in a sling for a couple months, then did PT after 1-1.5 months after the initial injury. Did as much PT as the insurance covered but didn't get her motion back. Then was caring for her grandbaby and her shoulder gave out. Had a manipulation under anesthesia yesterday along with steroid injection. Future Testing and Treatments Planned Will try PT first, if that's not successful will have arthroscopic surgery to remove some scar tissue. Treatment Goals Patient/Caregiver Goals To get as much ROM as I can get, to not be in pain. PT-OP-C Subjective Start: 02/13/23 15:33 Freq: Status: Active Protocol: Document 02/26/23 08:23 ES (Rec: 02/26/23 09:17 ES [id number]) OP-PT Subjective Patient Comments Patient Comments Patient reported that she was more sore than usual after her last PT session. Has been having pain and clicking in the front of her shoulder when raising her arm out to the front from about shoulder height and up. PT-OP-J Posture/Palpation/Skin Start: 02/13/23 15:33 Freq: Status: Active Protocol: Document 02/13/23 15:35 ES (Rec: 02/13/23 16:52 ES [id number]) Posture Evaluation Comments Posture Comments Unremarkable; tends to elevate L shoulder during humeral elevation/flexion/abduction. Increased muscle bulk in L upper trap. PT-OP-K Range of Motion Start: 02/13/23 15:33 Freq: Status: Active Protocol: Document 02/26/23 08:23 ES (Rec: 02/26/23 09:17 ES [id number]) Shoulder Goniometric Range of Motion Shoulder Left Active Testing Position Standing Flexion 140 Abduction 130 External Rotation at 0 degrees Abduction 40 Internal Rotation 65 Internal Rotation Behind Back (text) T7 Comments ER behind head to occiput PT-OP-Q Treatments Start: 02/13/23 15:33 Freq: Status: Active Protocol: Document 02/26/23 08:23 ES (Rec: 02/26/23 09:17 ES [id number]) Cardio Equipment Recumbent Stepper (Sci-Fit) Duration (Minutes) 5 Resistance 3.1 Seat Position 10 Other UE/LE Therapeutic Exercises Supine Exercises IR/ER Side left Resistance 1lb Comments RROM at 45 degrees abduction, cued for GHJ/scapular control Standing Exercises Wall slides Side left Reps/Minutes x10 Comments Cued for slight press into wall for inferior glide/reduce pain Manual Therapy Treatment Soft Tissue Mobilization L shld Body Location Pec major/minor, anterior delt , bicep tendon, teres major/ minor, subscap Mobilization Type Myofascial Release,Sustained Pressure Intensity/Depth Moderate Body Position Supine Joint Mobilizations L GH Jt Direction posterior, inferior Grade III Body Position Supine Comments In 45, 60, and 90 degrees abd, also MWM posterior glide during ER to decrease pain PT-OP-R Modalities Start: 02/13/23 15:33 Freq: Status: Active Protocol: Document 02/22/23 07:30 SP (Rec: 02/22/23 08:25 SP [id number]) Electric Stimulation Electric Stimulation L shld Body Location A/P/Lateral Duration (Minutes) 10 Intensity 15 Target/Sweep Sweep Combined With Heat/Cold Hot Pack PT-OP-T Assessment and Plan Start: 02/13/23 15:33 Freq: Status: Active Protocol: Document 02/26/23 08:23 ES (Rec: 02/26/23 09:17 ES [id number]) Physical Therapy Assessment Impairments Impairments Functional Activities,Pain,ROM ,Strength Goals 3 Impairment Function Attendant [employer] Goal (LTG) Patient will be able to lift and carry 20 lbs in L arm at side without increased pain to be able to care for grandson. LTG Duration 6 weeks (03/27/23) 2 Impairment Function Attendant [employer] Goal (LTG) Patient will have improved QuickDASH score to 31% or less indicating significant improvement in function. LTG Duration 6 weeks (03/27/23) 1 Impairment ROM Short Term Goal (STG) Patient will increase AROM L shoulder: flexion and abduction to 120 degrees, ER to 30 degrees, IR to 80 degrees. STG Duration 3 weeks (03/07/23) Senior Living Goal (LTG) Patient will increase AROM L shoulder: flexion to 140 degrees, ER to 45 degrees and to functionally to T1, IR functionally to L4. LTG Duration 6 weeks (03/27/23) Assessment Summary Assessment Patient with minor improvement in ER AROM following manual therapy today, with report of decreased pain. She demonstrates improving ROM, still limited in ER especially at 0 degrees abduction. She demonstrated decreased posterior capsule length though was unable to achieve stretch without increased anterior humeral pain without therapist manual assistance. Will continue to benefit from manual therapy to improve GHJ mobility while progressing AROM and strength for functional use of LUE. Physical Therapy Plan Frequency and Duration Frequency of Treatment 2x/Week Duration of treatment (weeks) 6 Plan of Care Start Date 02/13/23 Plan of Care End Date 03/27/23 Therapeutic Interventions Therapeutic Interventions Home Exercise Program,Joint Mobilizations,Manual Therapy, Patient/Caregiver Education, Self-Care/Home Management,Soft Tissue Mobilization,Taping, Therapeutic Activities, Therapeutic Exercises Modalities Cold Pack/Ice Massage,Electric Stimulation,Hot Packs, Ultrasound Next Visit Focus/Plan Next Note Type Treatment Note Next Visit Plan Recheck self STMs: ball/wall, theracane, broom handle. AROM progress over foam roller. Trial eccentric ROM w/ theraband assist. POC: Progress AROM, isometrics as indicated.
--- NOTE | 2023-03-01 08:22 | PT.OTN ---
Addendum entered and electronically signed by Debbie Anderson, CHILD PSYCHOLOGIST 03/01/23 08:40: Measure pre/post tx. Original Note: Current Diagnoses Adhesive capsulitis of left shoulder (03/01/23) Physical Therapy Treatment Note PT-OP-A Visit Information Start: 02/13/23 15:33 Freq: Status: Active Protocol: Document 03/01/23 07:35 SP (Rec: 03/01/23 08:40 SP [id number]) Out-Patient Physical Therapy Visit Information Visit Information Visit Type Treatment Note Visit Start Time 07:35 Visit Stop Time 08:22 Total Visit Minutes 47 Visit Number 6 Number of CHILD PSYCHOLOGIST Visits 1 Evaluation Information Evaluation Date 02/13/23 PT-OP-B Current Condition Start: 02/13/23 15:33 Freq: Status: Active Protocol: Document 02/13/23 15:35 ES (Rec: 02/13/23 16:52 ES [id number]) Current Condition History of Current Condition Onset Date 1.5 years ago Current Complaints L shoulder pain, stiffness History of Current Condition Fell onto concrete and fractured the L shoulder. No surgery. Was in a sling for a couple months, then did PT after 1-1.5 months after the initial injury. Did as much PT as the insurance covered but didn't get her motion back. Then was caring for her grandbaby and her shoulder gave out. Had a manipulation under anesthesia yesterday along with steroid injection. Future Testing and Treatments Planned Will try PT first, if that's not successful will have arthroscopic surgery to remove some scar tissue. Treatment Goals Patient/Caregiver Goals To get as much ROM as I can get, to not be in pain. PT-OP-C Subjective Start: 02/13/23 15:33 Freq: Status: Active Protocol: Document 03/01/23 07:35 SP (Rec: 03/01/23 08:40 SP [id number]) OP-PT Subjective Patient Comments Patient Comments Pt reports getting alot better . She notices with being ambidextris that doing more things like reaching things out of cupboard, trying isolate scap when reaching OH. Less click and locking but ABD w/ER still a block in ROM. PT-OP-J Posture/Palpation/Skin Start: 02/13/23 15:33 Freq: Status: Active Protocol: Document 02/13/23 15:35 ES (Rec: 02/13/23 16:52 ES [id number]) Posture Evaluation Comments Posture Comments Unremarkable; tends to elevate L shoulder during humeral elevation/flexion/abduction. Increased muscle bulk in L upper trap. PT-OP-K Range of Motion Start: 02/13/23 15:33 Freq: Status: Active Protocol: Document 02/26/23 08:23 ES (Rec: 02/26/23 09:17 ES [id number]) Shoulder Goniometric Range of Motion Shoulder Left Active Testing Position Standing Flexion 140 Abduction 130 External Rotation at 0 degrees Abduction 40 Internal Rotation 65 Internal Rotation Behind Back (text) T7 Comments ER behind head to occiput PT-OP-Q Treatments Start: 02/13/23 15:33 Freq: Status: Active Protocol: Document 03/01/23 07:35 SP (Rec: 03/01/23 08:40 SP [id number]) Therapeutic Exercises Supine Exercises AROM over foam roller Supine Exercise Name FF, scaption, brief ER Side bilateral Resistance AROM Equipment Used over noodle Reps/Minutes multiple reps MWM inferior glide Comments tactile cues Standing Exercises IR stretch Standing Exercise Name review self activity Side left Resistance AROM Equipment Used behind back approx T9-10 Reps/Minutes 20 SH x3 Comments good stretch anterior shld self STMs Standing Exercise Name tennis ball wall: pec minor, distal pec major, suprasp Comments good feedback self ability get deeper massage apply home Manual Therapy Treatment Soft Tissue Mobilization neck Body Location L: UT, LS, supraspinatus Mobilization Type Strumming,Sustained Pressure, Other Intensity/Depth Moderate Body Position Hooklying Comments manual, MWM w/FF L shld Body Location Pec major/minor, anterior delt , bicep tendon, teres major/ minor, subscap, Mobilization Type Myofascial Release,Sustained Pressure Intensity/Depth Moderate Body Position Supine Comments also supraspinatus Joint Mobilizations L 1st rib Joint caudal w/ breath, FF Grade II Body Position Hooklying L AC, SC jt Comments SC caudal and AC AP w/ FF, scaption, ABD J scapulothoracic Direction inferior, posterior Grade II Body Position Sidelying Comments manual L GH Jt Direction posterior, inferior Grade II Body Position Supine Comments In 45, 60, and 90 degrees abd, also MWM posterior glide during ER to decrease pain Manual Techniques L shld Type contract relax against IR, PROM into ER Body Location L GH Jt Body Position Supine Comments gained little more range (not measured) PT-OP-R Modalities Start: 02/13/23 15:33 Freq: Status: Active Protocol: Document 02/22/23 07:30 SP (Rec: 02/22/23 08:25 SP [id number]) Electric Stimulation Electric Stimulation L shld Body Location A/P/Lateral Duration (Minutes) 10 Intensity 15 Target/Sweep Sweep Combined With Heat/Cold Hot Pack PT-OP-T Assessment and Plan Start: 02/13/23 15:33 Freq: Status: Active Protocol: Document 03/01/23 07:35 SP (Rec: 03/01/23 08:40 SP [id number]) Physical Therapy Assessment Goals 3 Impairment Function Care Home Goal (LTG) Patient will be able to lift and carry 20 lbs in L arm at side without increased pain to be able to care for grandson. LTG Duration 6 weeks (03/27/23) 2 Impairment Function Care Home Goal (LTG) Patient will have improved QuickDASH score to 31% or less indicating significant improvement in function. LTG Duration 6 weeks (03/27/23) 1 Impairment ROM Short Term Goal (STG) Patient will increase AROM L shoulder: flexion and abduction to 120 degrees, ER to 30 degrees, IR to 80 degrees. STG Duration 3 weeks (03/07/23) Care Home Goal (LTG) Patient will increase AROM L shoulder: flexion to 140 degrees, ER to 45 degrees and to functionally to T1, IR functionally to L4. LTG Duration 6 weeks (03/27/23) Assessment Summary Assessment Pt good response with manual, some increase in ROM into ABD/ ER (not measured), states feels little less tight. Good understanding continue scap depression/chest lift/ proximal humeral head inferior glide with FF, Scaption over noodle today helped faciltate more ease. Physical Therapy Plan Frequency and Duration Frequency of Treatment 2x/Week Duration of treatment (weeks) 6 Plan of Care Start Date 02/13/23 Plan of Care End Date 03/27/23 Therapeutic Interventions Therapeutic Interventions Home Exercise Program,Joint Mobilizations,Manual Therapy, Patient/Caregiver Education, Self-Care/Home Management,Soft Tissue Mobilization,Taping, Therapeutic Activities, Therapeutic Exercises Modalities Cold Pack/Ice Massage,Electric Stimulation,Hot Packs, Ultrasound Next Visit Focus/Plan Next Note Type Treatment Note Next Visit Plan Progress L GH inferior posterior glide w/ FM, IR stretch, add TS ext over foam roller, TS ext mobility potential support. Future Trial eccentric ROM w/ theraband assist. POC: Progress AROM, isometrics as indicated.
--- NOTE | 2023-03-05 11:20 | PT.OTN ---
Current Diagnoses Adhesive capsulitis of left shoulder (03/05/23) Physical Therapy Treatment Note PT-OP-A Visit Information Start: 02/13/23 15:33 Freq: Status: Active Protocol: Document 03/05/23 08:23 ES (Rec: 03/05/23 09:25 ES [id number]) Out-Patient Physical Therapy Visit Information Visit Information Visit Type Treatment Note Visit Start Time 08:28 Visit Stop Time 09:11 Total Visit Minutes 43 Visit Number 7 Number of MARINE DIVER Visits 0 Evaluation Information Evaluation Date 02/13/23 PT-OP-B Current Condition Start: 02/13/23 15:33 Freq: Status: Active Protocol: Document 02/13/23 15:35 ES (Rec: 02/13/23 16:52 ES [id number]) Current Condition History of Current Condition Onset Date 1.5 years ago Current Complaints L shoulder pain, stiffness History of Current Condition Fell onto concrete and fractured the L shoulder. No surgery. Was in a sling for a couple months, then did PT after 1-1.5 months after the initial injury. Did as much PT as the insurance covered but didn't get her motion back. Then was caring for her grandbaby and her shoulder gave out. Had a manipulation under anesthesia yesterday along with steroid injection. Future Testing and Treatments Planned Will try PT first, if that's not successful will have arthroscopic surgery to remove some scar tissue. Treatment Goals Patient/Caregiver Goals To get as much ROM as I can get, to not be in pain. PT-OP-C Subjective Start: 02/13/23 15:33 Freq: Status: Active Protocol: Document 03/05/23 08:23 ES (Rec: 03/05/23 09:25 ES [id number]) OP-PT Subjective Patient Comments Patient Comments Patient reported that her shoulder is less sore and moving better. Having less clicking/catching. Is able to reach forward now with less difficulty. PT-OP-J Posture/Palpation/Skin Start: 02/13/23 15:33 Freq: Status: Active Protocol: Document 02/13/23 15:35 ES (Rec: 02/13/23 16:52 ES [id number]) Posture Evaluation Comments Posture Comments Unremarkable; tends to elevate L shoulder during humeral elevation/flexion/abduction. Increased muscle bulk in L upper trap. PT-OP-K Range of Motion Start: 02/13/23 15:33 Freq: Status: Active Protocol: Document 02/26/23 08:23 ES (Rec: 02/26/23 09:17 ES [id number]) Shoulder Goniometric Range of Motion Shoulder Left Active Testing Position Standing Flexion 140 Abduction 130 External Rotation at 0 degrees Abduction 40 Internal Rotation 65 Internal Rotation Behind Back (text) T7 Comments ER behind head to occiput PT-OP-Q Treatments Start: 02/13/23 15:33 Freq: Status: Active Protocol: Document 03/05/23 08:23 ES (Rec: 03/05/23 09:25 ES [id number]) Cardio Equipment Recumbent Stepper (Sci-Fit) Duration (Minutes) 5 Resistance 3.2 Seat Position 10 Other UE/LE Therapeutic Exercises Sidelying Exercises Shoulder flex Side left Resistance 1lb Reps/Minutes x15 Comments HEP Shoulder abd Side left Resistance 1lb Reps/Minutes x15 Comments HEP Shoulder ER Side left Resistance none Reps/Minutes x15 Comments HEP Standing Exercises Shoulder flexion/abduct Side left Equipment Used mirror Reps/Minutes x5 reps ea Comments Cued for decreased early scap elevation Table slides +lift Side left Resistance none Reps/Minutes x10 Comments Cued for elbow extension Manual Therapy Treatment Soft Tissue Mobilization neck Body Location L: UT, LS Mobilization Type Strumming,Sustained Pressure, Other Intensity/Depth Moderate Body Position Supine L shld Body Location Pec major/minor, anterior delt , bicep tendon, teres major/ minor, subscap, Mobilization Type Myofascial Release,Sustained Pressure Intensity/Depth Moderate Body Position Supine Joint Mobilizations J scapulothoracic Comments MWM L scapular upward rotation during forward flexion in sidelying L GH Jt Direction posterior, inferior Grade III Body Position Supine Comments In 90 degrees abd, varying degrees of ER PT-OP-R Modalities Start: 02/13/23 15:33 Freq: Status: Active Protocol: Document 02/22/23 07:30 SP (Rec: 02/22/23 08:25 SP [id number]) Electric Stimulation Electric Stimulation L shld Body Location A/P/Lateral Duration (Minutes) 10 Intensity 15 Target/Sweep Sweep Combined With Heat/Cold Hot Pack PT-OP-T Assessment and Plan Start: 02/13/23 15:33 Freq: Status: Active Protocol: Document 03/05/23 08:23 ES (Rec: 03/05/23 09:25 ES [id number]) Physical Therapy Assessment Goals 3 Impairment Function Digital Circuit Designer Goal (LTG) Patient will be able to lift and carry 20 lbs in L arm at side without increased pain to be able to care for grandson. LTG Duration 6 weeks (03/27/23) 2 Impairment Function Assisted Goal (LTG) Patient will have improved QuickDASH score to 31% or less indicating significant improvement in function. LTG Duration 6 weeks (03/27/23) 1 Impairment ROM Short Term Goal (STG) Patient will increase AROM L shoulder: flexion and abduction to 120 degrees, ER to 30 degrees, IR to 80 degrees. STG Duration 3 weeks (03/07/23) Digital Circuit Designer Goal (LTG) Patient will increase AROM L shoulder: flexion to 140 degrees, ER to 45 degrees and to functionally to T1, IR functionally to L4. LTG Duration 6 weeks (03/27/23) Assessment Summary Assessment Patient was able to tolerate exercise progression with AROM and RROM. She demonstrates increased ER ROM with decreased c/o catching. She continues to demonstrate early /excessive L scapular elevation with humeral elevation, improved with visual cues using mirror for feedback. She will benefit from further AROM and strengthening to improve functional use of LUE. Physical Therapy Plan Frequency and Duration Frequency of Treatment 2x/Week Duration of treatment (weeks) 6 Plan of Care Start Date 02/13/23 Plan of Care End Date 03/27/23 Therapeutic Interventions Therapeutic Interventions Home Exercise Program,Joint Mobilizations,Manual Therapy, Patient/Caregiver Education, Self-Care/Home Management,Soft Tissue Mobilization,Taping, Therapeutic Activities, Therapeutic Exercises Modalities Cold Pack/Ice Massage,Electric Stimulation,Hot Packs, Ultrasound Next Visit Focus/Plan Next Note Type Treatment Note Next Visit Plan Continue working on inferior glide with overhead motion, scapular mobility and mechanics.
--- NOTE | 2023-03-08 11:32 | PT.OTN ---
Current Diagnoses Adhesive capsulitis of left shoulder (03/08/23) Physical Therapy Treatment Note PT-OP-A Visit Information Start: 02/13/23 15:33 Freq: Status: Active Protocol: Document 03/08/23 10:51 SP (Rec: 03/08/23 11:39 SP [id number]) Out-Patient Physical Therapy Visit Information Visit Information Visit Type Treatment Note Visit Start Time 10:51 Visit Stop Time 11:32 Total Visit Minutes 41 Visit Number 8 Number of DOUBLE HEAD MACHINE OPERATOR Visits 1 Evaluation Information Evaluation Date 02/13/23 PT-OP-B Current Condition Start: 02/13/23 15:33 Freq: Status: Active Protocol: Document 02/13/23 15:35 ES (Rec: 02/13/23 16:52 ES [id number]) Current Condition History of Current Condition Onset Date 1.5 years ago Current Complaints L shoulder pain, stiffness History of Current Condition Fell onto concrete and fractured the L shoulder. No surgery. Was in a sling for a couple months, then did PT after 1-1.5 months after the initial injury. Did as much PT as the insurance covered but didn't get her motion back. Then was caring for her grandbaby and her shoulder gave out. Had a manipulation under anesthesia yesterday along with steroid injection. Future Testing and Treatments Planned Will try PT first, if that's not successful will have arthroscopic surgery to remove some scar tissue. Treatment Goals Patient/Caregiver Goals To get as much ROM as I can get, to not be in pain. PT-OP-C Subjective Start: 02/13/23 15:33 Freq: Status: Active Protocol: Document 03/08/23 10:51 SP (Rec: 03/08/23 11:39 SP [id number]) OP-PT Subjective Patient Comments Patient Comments Pt reports the new exercises with 1# wt good challenge gravity assisted and notice seems helping. PT-OP-J Posture/Palpation/Skin Start: 02/13/23 15:33 Freq: Status: Active Protocol: Document 02/13/23 15:35 ES (Rec: 02/13/23 16:52 ES [id number]) Posture Evaluation Comments Posture Comments Unremarkable; tends to elevate L shoulder during humeral elevation/flexion/abduction. Increased muscle bulk in L upper trap. PT-OP-K Range of Motion Start: 02/13/23 15:33 Freq: Status: Active Protocol: Document 02/26/23 08:23 ES (Rec: 02/26/23 09:17 ES [id number]) Shoulder Goniometric Range of Motion Shoulder Left Active Testing Position Standing Flexion 140 Abduction 130 External Rotation at 0 degrees Abduction 40 Internal Rotation 65 Internal Rotation Behind Back (text) T7 Comments ER behind head to occiput PT-OP-Q Treatments Start: 02/13/23 15:33 Freq: Status: Active Protocol: Document 03/08/23 10:51 SP (Rec: 03/08/23 11:39 SP [id number]) Cardio Equipment Recumbent Stepper (Sci-Fit) Duration (Minutes) 5 Resistance 3.2 Seat Position 8 Other UE/LE (70 RPMs, 0.86 miles) Therapeutic Exercises Sidelying Exercises Shoulder flex Side left Resistance 1lb Reps/Minutes x15 Comments HEP Shoulder abd Side left Resistance 1lb Reps/Minutes x15 Comments HEP Shoulder ER Side left Resistance 1# DB Reps/Minutes x15 Comments HEP Standing Exercises Table slides +lift Side left Resistance AROM Reps/Minutes x10 Comments Cued for elbow extension, TS ext neutral, chin tuck CS ext neutrl Wall slides Standing Exercise Name FF OH Lift- easy Side left Reps/Minutes x5 reps Comments decent range self STMs Standing Exercise Name Discussed continue perform over: LS, SA, infraspinatus Side left Equipment Used ball, stick lateral scap Comments assist OH ROM releases Manual Therapy Treatment Soft Tissue Mobilization neck Body Location L: distal UT, LS Mobilization Type Strumming,Sustained Pressure, Other Intensity/Depth Moderate Body Position Supine Comments manual and MWM head turn L L shld Body Location L infraspinatus, SA, Teres Mobilization Type Myofascial Release,Sustained Pressure Intensity/Depth Moderate Body Position Sidelying Joint Mobilizations J scapulothoracic Comments MWM L scapular upward rotation during forward flexion in sidelying, contact cues for self corrections and inferior glide to assist self improvement. L GH Jt Direction posterior Grade II Body Position Sidelying PT-OP-R Modalities Start: 02/13/23 15:33 Freq: Status: Active Protocol: Document 02/22/23 07:30 SP (Rec: 02/22/23 08:25 SP [id number]) Electric Stimulation Electric Stimulation L shld Body Location A/P/Lateral Duration (Minutes) 10 Intensity 15 Target/Sweep Sweep Combined With Heat/Cold Hot Pack PT-OP-T Assessment and Plan Start: 02/13/23 15:33 Freq: Status: Active Protocol: Document 03/08/23 10:51 SP (Rec: 03/08/23 11:39 SP [id number]) Physical Therapy Assessment Goals 3 Impairment Function Steam Fitter Goal (LTG) Patient will be able to lift and carry 20 lbs in L arm at side without increased pain to be able to care for grandson. LTG Duration 6 weeks (03/27/23) 2 Impairment Function Snf Goal (LTG) Patient will have improved QuickDASH score to 31% or less indicating significant improvement in function. LTG Duration 6 weeks (03/27/23) 1 Impairment ROM Short Term Goal (STG) Patient will increase AROM L shoulder: flexion and abduction to 120 degrees, ER to 30 degrees, IR to 80 degrees. STG Duration 3 weeks (03/07/23) Snf Goal (LTG) Patient will increase AROM L shoulder: flexion to 140 degrees, ER to 45 degrees and to functionally to T1, IR functionally to L4. LTG Duration 6 weeks (03/27/23) Assessment Summary Assessment Pt improved OH ROM post manual , noted shakiness end range FF , ABD with wt. Cued CS chin tuck to dec LS/ UT recruitment on L. IMproved corrections of trunk flexion FF & lift, less LS tension. Physical Therapy Plan Frequency and Duration Frequency of Treatment 2x/Week Duration of treatment (weeks) 6 Plan of Care Start Date 02/13/23 Plan of Care End Date 03/27/23 Therapeutic Interventions Therapeutic Interventions Home Exercise Program,Joint Mobilizations,Manual Therapy, Patient/Caregiver Education, Self-Care/Home Management,Soft Tissue Mobilization,Taping, Therapeutic Activities, Therapeutic Exercises Modalities Cold Pack/Ice Massage,Electric Stimulation,Hot Packs, Ultrasound Next Visit Focus/Plan Next Note Type Treatment Note Next Visit Plan Continue working on inferior glide with overhead motion, scapular mobility and mechanics.
--- NOTE | 2023-03-12 13:15 | PT.OTN ---
Current Diagnoses Adhesive capsulitis of left shoulder (03/12/23) Physical Therapy Treatment Note PT-OP-A Visit Information Start: 02/13/23 15:33 Freq: Status: Active Protocol: Document 03/12/23 09:19 ES (Rec: 03/12/23 13:15 ES [id number]) Out-Patient Physical Therapy Visit Information Visit Information Visit Type Treatment Note Visit Start Time 09:19 Visit Stop Time 10:07 Total Visit Minutes 48 Visit Number 9 Number of INSPECTOR PENETRANT Visits 0 PT-OP-B Current Condition Start: 02/13/23 15:33 Freq: Status: Active Protocol: Document 02/13/23 15:35 ES (Rec: 02/13/23 16:52 ES [id number]) Current Condition History of Current Condition Onset Date 1.5 years ago Current Complaints L shoulder pain, stiffness History of Current Condition Fell onto concrete and fractured the L shoulder. No surgery. Was in a sling for a couple months, then did PT after 1-1.5 months after the initial injury. Did as much PT as the insurance covered but didn't get her motion back. Then was caring for her grandbaby and her shoulder gave out. Had a manipulation under anesthesia yesterday along with steroid injection. Future Testing and Treatments Planned Will try PT first, if that's not successful will have arthroscopic surgery to remove some scar tissue. Treatment Goals Patient/Caregiver Goals To get as much ROM as I can get, to not be in pain. PT-OP-C Subjective Start: 02/13/23 15:33 Freq: Status: Active Protocol: Document 03/12/23 09:19 ES (Rec: 03/12/23 13:15 ES [id number]) OP-PT Subjective Patient Comments Patient Comments Patient stated that shoulder has been more achey lately since adding weight to her exercises. Still feels like it 's locking when doing any ER . [place] really good after the manual therapy last visit for a couple days. Has a hard time sleeping on her back; prefers L sidelying but was told not to. PT-OP-J Posture/Palpation/Skin Start: 02/13/23 15:33 Freq: Status: Active Protocol: Document 02/13/23 15:35 ES (Rec: 02/13/23 16:52 ES [id number]) Posture Evaluation Comments Posture Comments Unremarkable; tends to elevate L shoulder during humeral elevation/flexion/abduction. Increased muscle bulk in L upper trap. PT-OP-K Range of Motion Start: 02/13/23 15:33 Freq: Status: Active Protocol: Document 02/26/23 08:23 ES (Rec: 02/26/23 09:17 ES [id number]) Shoulder Goniometric Range of Motion Shoulder Left Active Testing Position Standing Flexion 140 Abduction 130 External Rotation at 0 degrees Abduction 40 Internal Rotation 65 Internal Rotation Behind Back (text) T7 Comments ER behind head to occiput PT-OP-Q Treatments Start: 02/13/23 15:33 Freq: Status: Active Protocol: Document 03/12/23 09:19 ES (Rec: 03/12/23 13:15 ES [id number]) Cardio Equipment Upper Body Ergometer (UBE) Duration (Minutes) 5 Seat Position 10 Height 2 Other fwd x2.5 min, bkwd 2.5 min Therapeutic Exercises Sitting Exercises ER RROM Side left Resistance 1lb Comments at 90 degrees hum elev (elbow on pillow on plinth) Manual Therapy Treatment Soft Tissue Mobilization neck Body Location L: distal UT, LS, scalenes Mobilization Type Strumming,Sustained Pressure Intensity/Depth Moderate Body Position Supine L shld Body Location L pecs, ant delt, teres Mobilization Type Myofascial Release,Strumming, Sustained Pressure Intensity/Depth Moderate Body Position Supine Joint Mobilizations L 1st rib Direction Caudal Grade IV Body Position Supine L GH Jt Direction posterior, inferior Grade III Body Position Supine Self-Care/Home Management Treatment Education Patient Education Posture Other Education Educated on sleeping with pillow under side when on L side to create trough for arm to allow her to sleep better. PT-OP-R Modalities Start: 02/13/23 15:33 Freq: Status: Active Protocol: Document 02/22/23 07:30 SP (Rec: 02/22/23 08:25 SP [id number]) Electric Stimulation Electric Stimulation L shld Body Location A/P/Lateral Duration (Minutes) 10 Intensity 15 Target/Sweep Sweep Combined With Heat/Cold Hot Pack PT-OP-T Assessment and Plan Start: 02/13/23 15:33 Freq: Status: Active Protocol: Document 03/12/23 09:19 ES (Rec: 03/12/23 13:15 ES [id number]) Physical Therapy Assessment Goals 3 Impairment Function Group Home Goal (LTG) Patient will be able to lift and carry 20 lbs in L arm at side without increased pain to be able to care for grandson. LTG Duration 6 weeks (03/27/23) 2 Impairment Function Tobacco Stripper Hand Goal (LTG) Patient will have improved QuickDASH score to 31% or less indicating significant improvement in function. LTG Duration 6 weeks (03/27/23) 1 Impairment ROM Short Term Goal (STG) Patient will increase AROM L shoulder: flexion and abduction to 120 degrees, ER to 30 degrees, IR to 80 degrees. STG Duration 3 weeks (03/07/23) Group Home Goal (LTG) Patient will increase AROM L shoulder: flexion to 140 degrees, ER to 45 degrees and to functionally to T1, IR functionally to L4. LTG Duration 6 weeks (03/27/23) Assessment Summary Assessment Patient continues to demonstrate compensation of scapular elevation with shoulder flexion/abduction due to limited range. Improved after manual therapy today. She was able to tolerate progression of RC ex's in 90 degrees humeral elevation for more functional strength. Encouraged her to return to the gym and resume lower body ex's, some upper body exercises in modified positions/weights. Okay to start swimming in modified ranges. Physical Therapy Plan Frequency and Duration Frequency of Treatment 2x/Week Duration of treatment (weeks) 6 Plan of Care Start Date 02/13/23 Plan of Care End Date 03/27/23 Therapeutic Interventions Therapeutic Interventions Home Exercise Program,Joint Mobilizations,Manual Therapy, Patient/Caregiver Education, Self-Care/Home Management,Soft Tissue Mobilization,Taping, Therapeutic Activities, Therapeutic Exercises Modalities Cold Pack/Ice Massage,Electric Stimulation,Hot Packs, Ultrasound Next Visit Focus/Plan Next Note Type Treatment Note Next Visit Plan Continue working on inferior glide with overhead motion, scapular mobility and mechanics.
--- NOTE | 2023-03-15 10:17 | PT.OTN ---
Current Diagnoses Adhesive capsulitis of left shoulder (03/15/23) Physical Therapy Treatment Note PT-OP-A Visit Information Start: 02/13/23 15:33 Freq: Status: Active Protocol: Document 03/15/23 08:27 ES (Rec: 03/15/23 09:23 ES [id number]) Out-Patient Physical Therapy Visit Information Visit Information Visit Type Progress Note Visit Start Time 08:30 Visit Stop Time 09:19 Total Visit Minutes 49 Visit Number 10 Number of BONUS CLERK Visits 0 Evaluation Information Evaluation Date 02/13/23 PT-OP-B Current Condition Start: 02/13/23 15:33 Freq: Status: Active Protocol: Document 02/13/23 15:35 ES (Rec: 02/13/23 16:52 ES [id number]) Current Condition History of Current Condition Onset Date 1.5 years ago Current Complaints L shoulder pain, stiffness History of Current Condition Fell onto concrete and fractured the L shoulder. No surgery. Was in a sling for a couple months, then did PT after 1-1.5 months after the initial injury. Did as much PT as the insurance covered but didn't get her motion back. Then was caring for her grandbaby and her shoulder gave out. Had a manipulation under anesthesia yesterday along with steroid injection. Future Testing and Treatments Planned Will try PT first, if that's not successful will have arthroscopic surgery to remove some scar tissue. Treatment Goals Patient/Caregiver Goals To get as much ROM as I can get, to not be in pain. PT-OP-C Subjective Start: 02/13/23 15:33 Freq: Status: Active Protocol: Document 03/15/23 08:27 ES (Rec: 03/15/23 09:23 ES [id number]) OP-PT Subjective Patient Comments Patient Comments Patient had a f/u with surgeon yesterday, ordered an MRI to further diagnose shoulder catching. Overall patient reported her shoulder is moving better but has a constant ache. Able to carry about 5-6 lbs in the L arm, unable to carry gallon of milk for more than a few seconds. Stated she feels like she is at 85% improved. Patient Reported Progress Improving Patient Questionnaires Quick Dash- Upper Extremity Quick Dash UE Score 22.7 Quick Dash UE Impairment 20 to 39% Impaired (Score 20- 39) OP-PT Pain Assessment Location L shoulder Pain Location Details Anterior shoulder Scale Used Worst 3/10, best 1/10 PT-OP-J Posture/Palpation/Skin Start: 02/13/23 15:33 Freq: Status: Active Protocol: Document 02/13/23 15:35 ES (Rec: 02/13/23 16:52 ES [id number]) Posture Evaluation Comments Posture Comments Unremarkable; tends to elevate L shoulder during humeral elevation/flexion/abduction. Increased muscle bulk in L upper trap. PT-OP-K Range of Motion Start: 02/13/23 15:33 Freq: Status: Active Protocol: Document 03/15/23 08:27 ES (Rec: 03/15/23 09:23 ES [id number]) Shoulder Goniometric Range of Motion Shoulder Left Active Testing Position Standing Flexion 140 Abduction 140 External Rotation at 90 degrees 55 Abduction External Rotation at 0 degrees Abduction 45 Internal Rotation 65 Internal Rotation Behind Back (text) T7 Comments Functional ER to T2 PT-OP-M Strength Start: 02/13/23 15:33 Freq: Status: Active Protocol: Document 03/15/23 08:27 ES (Rec: 03/15/23 09:23 ES [id number]) Shoulder Strength Shoulder Manual Muscle Testing Left Flexion 4- Good- Extension 5 Normal Abduction (C5) 4 Good External Rotation 4 Good Internal Rotation 4+ Good+ Comments Pain with resisted shoulder flexion PT-OP-Q Treatments Start: 02/13/23 15:33 Freq: Status: Active Protocol: Document 03/15/23 08:27 ES (Rec: 03/15/23 09:23 ES [id number]) Therapeutic Exercises Sitting Exercises IR RROM Side left Resistance L1 band Reps/Minutes 2x15 Comments at 90 deg abd, 90 deg flex ER RROM Side left Resistance 1lb Reps/Minutes 2x15 Comments at 90 deg abd, 90 deg flex Manual Therapy Treatment Soft Tissue Mobilization L shld Body Location ant delt, bicep tendon Mobilization Type Myofascial Release,Strumming, Sustained Pressure Intensity/Depth Moderate Body Position Supine Joint Mobilizations L GH Jt Direction posterior, inferior Grade III Body Position Supine PT-OP-R Modalities Start: 02/13/23 15:33 Freq: Status: Active Protocol: Document 02/22/23 07:30 SP (Rec: 02/22/23 08:25 SP [id number]) Electric Stimulation Electric Stimulation L shld Body Location A/P/Lateral Duration (Minutes) 10 Intensity 15 Target/Sweep Sweep Combined With Heat/Cold Hot Pack PT-OP-T Assessment and Plan Start: 02/13/23 15:33 Freq: Status: Active Protocol: Document 03/15/23 08:27 ES (Rec: 03/15/23 09:23 ES [id number]) Physical Therapy Assessment Goals 3 Impairment Function Drug Safety Data Management Specialist Goal (LTG) Patient will be able to lift and carry 20 lbs in L arm at side without increased pain to be able to care for grandson. LTG Duration 6 weeks (03/27/23) - progressing 03/15/23 2 Impairment Function Long-Term Goal (LTG) Patient will have improved QuickDASH score to 31% or less indicating significant improvement in function. LTG Duration 6 weeks (03/27/23) - met 1 Impairment ROM Short Term Goal (STG) Patient will increase AROM L shoulder: flexion and abduction to 120 degrees, ER to 30 degrees, IR to 80 degrees. STG Duration 3 weeks (03/07/23) - progressing 03/15/23 Long-Term Goal (LTG) Patient will increase AROM L shoulder: flexion to 140 degrees, ER to 45 degrees and to functionally to T1, IR functionally to L4. LTG Duration 6 weeks (03/27/23) Progress Towards Goals Progress Towards Goals Progressing Toward Goals Assessment Summary Assessment Patient demonstrates improved AROM, strength, and function since initial eval. She had significant improvement in QuickDASH score today. She continues to be functionally limited in her ability to lift and carry >5lb in L arm. She demonstrated weakness with IR especially in shoulder flexion with ex's today. She is likely near her end range for shoulder ER at this point. She will benefit from further strength progression to improve functional use of LUE for ADL's. Physical Therapy Plan Frequency and Duration Frequency of Treatment 2x/Week Duration of treatment (weeks) 6 Plan of Care Start Date 02/13/23 Plan of Care End Date 03/27/23 Therapeutic Interventions Therapeutic Interventions Home Exercise Program,Joint Mobilizations,Manual Therapy, Patient/Caregiver Education, Self-Care/Home Management,Soft Tissue Mobilization,Taping, Therapeutic Activities, Therapeutic Exercises Modalities Cold Pack/Ice Massage,Electric Stimulation,Hot Packs, Ultrasound Next Visit Focus/Plan Next Note Type Treatment Note Next Visit Plan Continue working on inferior glide with overhead motion, scapular mobility and mechanics, RC strength in functional ranges. Consider bicep/tricep strengthening.
--- NOTE | 2023-03-19 14:13 | PT.OTN ---
Current Diagnoses Adhesive capsulitis of left shoulder (03/19/23) Physical Therapy Treatment Note PT-OP-A Visit Information Start: 02/13/23 15:33 Freq: Status: Active Protocol: Document 03/19/23 08:14 [facility] (Rec: 03/19/23 14:10 [facility] [id number]) Out-Patient Physical Therapy Visit Information Visit Information Visit Type Treatment Note Visit Start Time 08:22 Visit Stop Time 09:12 Total Visit Minutes 50 Visit Number 11 Number of ROUTE SALES ASSOCIATE Visits 0 PT-OP-B Current Condition Start: 02/13/23 15:33 Freq: Status: Active Protocol: Document 02/13/23 15:35 ES (Rec: 02/13/23 16:52 ES [id number]) Current Condition History of Current Condition Onset Date 1.5 years ago Current Complaints L shoulder pain, stiffness History of Current Condition Fell onto concrete and fractured the L shoulder. No surgery. Was in a sling for a couple months, then did PT after 1-1.5 months after the initial injury. Did as much PT as the insurance covered but didn't get her motion back. Then was caring for her grandbaby and her shoulder gave out. Had a manipulation under anesthesia yesterday along with steroid injection. Future Testing and Treatments Planned Will try PT first, if that's not successful will have arthroscopic surgery to remove some scar tissue. Treatment Goals Patient/Caregiver Goals To get as much ROM as I can get, to not be in pain. PT-OP-C Subjective Start: 02/13/23 15:33 Freq: Status: Active Protocol: Document 03/19/23 08:14 [facility] (Rec: 03/19/23 14:10 [facility] [id number]) OP-PT Subjective Patient Comments Patient Comments Pt reports she is mostly limited in ER/IR at 90 deg. Still has a constant ache PT-OP-J Posture/Palpation/Skin Start: 02/13/23 15:33 Freq: Status: Active Protocol: Document 02/13/23 15:35 ES (Rec: 02/13/23 16:52 ES [id number]) Posture Evaluation Comments Posture Comments Unremarkable; tends to elevate L shoulder during humeral elevation/flexion/abduction. Increased muscle bulk in L upper trap. PT-OP-K Range of Motion Start: 02/13/23 15:33 Freq: Status: Active Protocol: Document 03/15/23 08:27 ES (Rec: 03/15/23 09:23 ES [id number]) Shoulder Goniometric Range of Motion Shoulder Left Active Testing Position Standing Flexion 140 Abduction 140 External Rotation at 90 degrees 55 Abduction External Rotation at 0 degrees Abduction 45 Internal Rotation 65 Internal Rotation Behind Back (text) T7 Comments Functional ER to T2 PT-OP-M Strength Start: 02/13/23 15:33 Freq: Status: Active Protocol: Document 03/15/23 08:27 ES (Rec: 03/15/23 09:23 ES [id number]) Shoulder Strength Shoulder Manual Muscle Testing Left Flexion 4- Good- Extension 5 Normal Abduction (C5) 4 Good External Rotation 4 Good Internal Rotation 4+ Good+ Comments Pain with resisted shoulder flexion PT-OP-Q Treatments Start: 02/13/23 15:33 Freq: Status: Active Protocol: Document 03/19/23 08:14 [facility] (Rec: 03/19/23 14:10 [facility] [id number]) Cardio Equipment Upper Body Ergometer (UBE) Duration (Minutes) 5 Seat Position 10 Height 4 Other fwd x2.5 min, bkwd 2.5 min Therapeutic Exercises Supine Exercises triceps ext Supine Exercise Name skull crushers Side bilateral Equipment Used 5# Reps/Minutes 15 Sitting Exercises IR RROM Side left Resistance orange (L2) band Reps/Minutes 2x15 Comments at 90 deg abd, 90 deg flex ER RROM Side left Resistance 2lb, 3lb Reps/Minutes x15 ea Comments at 90 deg abd, 90 deg flex Standing Exercises Elbow flex Side bilateral Equipment Used 5# Reps/Minutes 15 Manual Therapy Treatment Soft Tissue Mobilization neck Body Location L UT, LS, scalenes Mobilization Type Strumming,Sustained Pressure Intensity/Depth Moderate Body Position Sidelying L shld Body Location L pec major and minor Mobilization Type Sustained Pressure Comments w/IR/ER hip motion Joint Mobilizations L AC, SC jt Comments L AC gapping FM L SC inf FM & post FM PT-OP-R Modalities Start: 02/13/23 15:33 Freq: Status: Active Protocol: Document 03/19/23 08:14 [facility] (Rec: 03/19/23 14:11 [facility] [id number]) Hot Pack/Cold Pack Treatment Cold Pack Location L shoulder Patient Position Hooklying Treatment Duration (minutes) 10 PT-OP-T Assessment and Plan Start: 02/13/23 15:33 Freq: Status: Active Protocol: Document 03/19/23 08:14 [facility] (Rec: 03/19/23 14:10 [facility] [id number]) Physical Therapy Assessment Goals 3 Impairment Function Alf Goal (LTG) Patient will be able to lift and carry 20 lbs in L arm at side without increased pain to be able to care for grandson. LTG Duration 6 weeks (03/27/23) - progressing 03/15/23 2 Impairment Function Alf Goal (LTG) Patient will have improved QuickDASH score to 31% or less indicating significant improvement in function. LTG Duration 6 weeks (03/27/23) - met 1 Impairment ROM Short Term Goal (STG) Patient will increase AROM L shoulder: flexion and abduction to 120 degrees, ER to 30 degrees, IR to 80 degrees. STG Duration 3 weeks (03/07/23) - progressing 03/15/23 Timber Repairer Goal (LTG) Patient will increase AROM L shoulder: flexion to 140 degrees, ER to 45 degrees and to functionally to T1, IR functionally to L4. LTG Duration 6 weeks (03/27/23) Assessment Summary Assessment Pt did well with biceps/ triceps strengthening exercises w/o challenge. She will work on these at home/ when returning to gym. She was able to inc resistance w/ rotational exercises w/o inc pain. She ahd imrpoved ROM into flex, abd and 90/90 ER and IR w/manaul Physical Therapy Plan Frequency and Duration Frequency of Treatment 2x/Week Duration of treatment (weeks) 6 Plan of Care Start Date 02/13/23 Plan of Care End Date 03/27/23 Next Visit Focus/Plan Next Note Type Treatment Note Next Visit Plan Continue working on inferior glide with overhead motion, scapular mobility and mechanics, RC strength in functional ranges. Check response to bicep/tricep strengthening.
--- NOTE | 2023-03-22 09:06 | PT.OTN ---
Current Diagnoses Adhesive capsulitis of left shoulder (03/22/23) Physical Therapy Treatment Note PT-OP-A Visit Information Start: 02/13/23 15:33 Freq: Status: Active Protocol: Document 03/22/23 08:13 [facility] (Rec: 03/22/23 09:06 [facility] [id number]) Out-Patient Physical Therapy Visit Information Visit Information Visit Type Treatment Note Visit Start Time 08:18 Visit Stop Time 09:10 Total Visit Minutes 52 Visit Number 12 Number of DBA DEVELOPER Visits 0 PT-OP-B Current Condition Start: 02/13/23 15:33 Freq: Status: Active Protocol: Document 02/13/23 15:35 ES (Rec: 02/13/23 16:52 ES [id number]) Current Condition History of Current Condition Onset Date 1.5 years ago Current Complaints L shoulder pain, stiffness History of Current Condition Fell onto concrete and fractured the L shoulder. No surgery. Was in a sling for a couple months, then did PT after 1-1.5 months after the initial injury. Did as much PT as the insurance covered but didn't get her motion back. Then was caring for her grandbaby and her shoulder gave out. Had a manipulation under anesthesia yesterday along with steroid injection. Future Testing and Treatments Planned Will try PT first, if that's not successful will have arthroscopic surgery to remove some scar tissue. Treatment Goals Patient/Caregiver Goals To get as much ROM as I can get, to not be in pain. PT-OP-C Subjective Start: 02/13/23 15:33 Freq: Status: Active Protocol: Document 03/22/23 08:13 [facility] (Rec: 03/22/23 09:06 [facility] [id number]) OP-PT Subjective Patient Comments Patient Comments Pt reports she felt like last treatment session helped immensely Patient Reported Progress Improving PT-OP-J Posture/Palpation/Skin Start: 02/13/23 15:33 Freq: Status: Active Protocol: Document 02/13/23 15:35 ES (Rec: 02/13/23 16:52 ES [id number]) Posture Evaluation Comments Posture Comments Unremarkable; tends to elevate L shoulder during humeral elevation/flexion/abduction. Increased muscle bulk in L upper trap. PT-OP-K Range of Motion Start: 02/13/23 15:33 Freq: Status: Active Protocol: Document 03/15/23 08:27 ES (Rec: 03/15/23 09:23 ES [id number]) Shoulder Goniometric Range of Motion Shoulder Left Active Testing Position Standing Flexion 140 Abduction 140 External Rotation at 90 degrees 55 Abduction External Rotation at 0 degrees Abduction 45 Internal Rotation 65 Internal Rotation Behind Back (text) T7 Comments Functional ER to T2 PT-OP-M Strength Start: 02/13/23 15:33 Freq: Status: Active Protocol: Document 03/15/23 08:27 ES (Rec: 03/15/23 09:23 ES [id number]) Shoulder Strength Shoulder Manual Muscle Testing Left Flexion 4- Good- Extension 5 Normal Abduction (C5) 4 Good External Rotation 4 Good Internal Rotation 4+ Good+ Comments Pain with resisted shoulder flexion PT-OP-Q Treatments Start: 02/13/23 15:33 Freq: Status: Active Protocol: Document 03/22/23 08:13 [facility] (Rec: 03/22/23 09:06 [facility] [id number]) Manual Therapy Treatment Soft Tissue Mobilization post Body Location L lat & rhomboids Mobilization Type Strumming,Sustained Pressure Body Position Sidelying Comments w/scap PNF patterns Joint Mobilizations ribs Comments L SB glide at rib 7-9 FM seated inf glide L rib 8 in s/l w/PNF pattern scap FM thoracic Comments PA (focus on L side) T1-3; transverse R FM T1-3 including percussion L AC, SC jt Comments L AC gapping FM L SC inf FM & post & gapping FM L GH Jt Comments Post translation, lat gappign FM w/manual facilitaiton at end range PT-OP-R Modalities Start: 02/13/23 15:33 Freq: Status: Active Protocol: Document 03/22/23 08:13 [facility] (Rec: 03/22/23 09:06 [facility] [id number]) Hot Pack/Cold Pack Treatment Cold Pack Location L shoulder Patient Position Hooklying Treatment Duration (minutes) 10 PT-OP-T Assessment and Plan Start: 02/13/23 15:33 Freq: Status: Active Protocol: Document 03/22/23 08:13 [facility] (Rec: 03/22/23 09:06 [facility] [id number]) Physical Therapy Assessment Goals 3 Impairment Function Alf Goal (LTG) Patient will be able to lift and carry 20 lbs in L arm at side without increased pain to be able to care for alli. LTG Duration 6 weeks (03/27/23) - progressing 03/15/23 2 Impairment Function Crew Supervisor Goal (LTG) Patient will have improved QuickDASH score to 31% or less indicating significant improvement in function. LTG Duration 6 weeks (03/27/23) - met 1 Impairment ROM Short Term Goal (STG) Patient will increase AROM L shoulder: flexion and abduction to 120 degrees, ER to 30 degrees, IR to 80 degrees. STG Duration 3 weeks (03/07/23) - progressing 03/15/23 Alf Goal (LTG) Patient will increase AROM L shoulder: flexion to 140 degrees, ER to 45 degrees and to functionally to T1, IR functionally to L4. LTG Duration 6 weeks (03/27/23) Assessment Summary Assessment Pt presented w/improved ROM today compared to the start of last session and improved further w/less discomfort in all ranges w/L shoulder along w/improved L cervical rotation Physical Therapy Plan Frequency and Duration Frequency of Treatment 2x/Week Duration of treatment (weeks) 6 Plan of Care Start Date 02/13/23 Plan of Care End Date 03/27/23 Next Visit Focus/Plan Next Note Type Progress Note Next Visit Plan Work on 1st and 2nd/3rd rib, mid thorcic mobility, GH mobility to progress mobs at end range overhead motion, train axial elongation
--- NOTE | 2023-03-26 09:32 | PT.OTN ---
Current Diagnoses Adhesive capsulitis of left shoulder (03/26/23) Physical Therapy Treatment Note PT-OP-A Visit Information Start: 02/13/23 15:33 Freq: Status: Active Protocol: Document 03/26/23 08:10 [facility] (Rec: 03/26/23 09:32 [facility] [id number]) Out-Patient Physical Therapy Visit Information Visit Information Visit Type Progress Note Visit Note 09/12 Visit Start Time 08:18 Visit Stop Time 09:02 Total Visit Minutes 44 Visit Number 13 Number of CHECKER CASHIER Visits 0 PT-OP-B Current Condition Start: 02/13/23 15:33 Freq: Status: Active Protocol: Document 02/13/23 15:35 ES (Rec: 02/13/23 16:52 ES [id number]) Current Condition History of Current Condition Onset Date 1.5 years ago Current Complaints L shoulder pain, stiffness History of Current Condition Fell onto concrete and fractured the L shoulder. No surgery. Was in a sling for a couple months, then did PT after 1-1.5 months after the initial injury. Did as much PT as the insurance covered but didn't get her motion back. Then was caring for her grandbaby and her shoulder gave out. Had a manipulation under anesthesia yesterday along with steroid injection. Future Testing and Treatments Planned Will try PT first, if that's not successful will have arthroscopic surgery to remove some scar tissue. Treatment Goals Patient/Caregiver Goals To get as much ROM as I can get, to not be in pain. PT-OP-C Subjective Start: 02/13/23 15:33 Freq: Status: Active Protocol: Document 03/26/23 08:10 [facility] (Rec: 03/26/23 09:32 [facility] [id number]) OP-PT Subjective Patient Comments Patient Comments Pt feels like the work on her L shoulder blade area helped alot. She feels like her movement is easier overhead and w/rotations. Patient Reported Progress Improving PT-OP-J Posture/Palpation/Skin Start: 02/13/23 15:33 Freq: Status: Active Protocol: Document 02/13/23 15:35 ES (Rec: 02/13/23 16:52 ES [id number]) Posture Evaluation Comments Posture Comments Unremarkable; tends to elevate L shoulder during humeral elevation/flexion/abduction. Increased muscle bulk in L upper trap. PT-OP-K Range of Motion Start: 02/13/23 15:33 Freq: Status: Active Protocol: Document 03/26/23 08:10 [facility] (Rec: 03/26/23 09:32 [facility] [id number]) Shoulder Goniometric Range of Motion Shoulder Left Active Testing Position Standing Flexion 138 Abduction 115 External Rotation at 90 degrees 58 Abduction External Rotation at 0 degrees Abduction 51 Internal Rotation 56 Internal Rotation Behind Back (text) T6 Comments Functional ER to T2 pain w/flex and abd & w/90/90 ER & IR PT-OP-M Strength Start: 02/13/23 15:33 Freq: Status: Active Protocol: Document 03/26/23 08:10 [facility] (Rec: 03/26/23 09:32 [facility] [id number]) Shoulder Strength Shoulder Manual Muscle Testing Left Flexion 4- Good- Extension 5 Normal Abduction (C5) 4 Good External Rotation 4- Good- Internal Rotation 5 Normal Horizontal Abduction 5 Normal Horizontal Adduction 5 Normal Comments Pain with resisted shoulder flexion Elbow/Forearm Strength Elbow and Forearm Manual Muscle Testing Left Flexion (C6) 5 Normal Extension (C7) 5 Normal Pronation 5 Normal Supination 5 Normal Comments pain during tricep testing PT-OP-Q Treatments Start: 02/13/23 15:33 Freq: Status: Active Protocol: Document 03/26/23 08:10 [facility] (Rec: 03/26/23 09:32 [facility] [id number]) Therapeutic Exercises Sitting Exercises rotation Sitting Exercise Name cervical rotation w/trunk rot and wt shift Side bilateral Reps/Minutes 3 Other Exercises cat/cow Reps/Minutes 4 Comments cues for thoracic ext donaldo pose Side bilateral Reps/Minutes 30 sec Manual Therapy Treatment Soft Tissue Mobilization neck Body Location L UT, LS Mobilization Type Strumming,Sustained Pressure Intensity/Depth Moderate Body Position Sidelying L shld Body Location L lats/teres Mobilization Type Sustained Pressure Intensity/Depth Moderate Body Position Sidelying Comments w/PROM abd Joint Mobilizations ribs Comments ribs 1-3 caudal FM thoracic Comments PA (focus on L side) T1-3; transverse R FM T2-3 PT-OP-R Modalities Start: 02/13/23 15:33 Freq: Status: Active Protocol: Document 03/22/23 08:13 [facility] (Rec: 03/22/23 09:06 [facility] [id number]) Hot Pack/Cold Pack Treatment Cold Pack Location L shoulder Patient Position Hooklying Treatment Duration (minutes) 10 PT-OP-T Assessment and Plan Start: 02/13/23 15:33 Freq: Status: Active Protocol: Document 03/26/23 08:10 [facility] (Rec: 03/26/23 09:32 [facility] [id number]) Physical Therapy Assessment Goals 3 Impairment Function [facility] Goal (LTG) Patient will be able to lift and carry 20 lbs in L arm at side without increased pain to be able to care for grandson. 03/26-able to do 10 lbs; pain w /15 lbs LTG Duration 05/23 2 Impairment Function [facility] Goal (LTG) Patient will have improved QuickDASH score to 31% or less indicating significant improvement in function. LTG Duration 6 weeks (03/27/23) - met 1 Impairment ROM Short Term Goal (STG) Patient will increase AROM L shoulder: flexion and abduction to 120 degrees, ER to 30 degrees, IR to 80 degrees. STG Duration 3 weeks - progressing 03/15/23 [facility] Goal (LTG) Patient will increase AROM L shoulder: flexion to 140 degrees, ER to 45 degrees and to functionally to T1, IR functionally to L4. LTG Duration 05/31 Assessment Summary Assessment Pt had improved ease w/ overhead AROM w/less disocomfort after manual along w/improved trunk rotation and cervical rotation w/less discomofrt. Pt has better positioning of scap on ribcage . Physical Therapy Plan Frequency and Duration Frequency of Treatment 2x/Week Duration of treatment (weeks) 9 Plan of Care Start Date 03/26/23 Plan of Care End Date 05/28/23 Therapeutic Interventions Therapeutic Interventions Home Exercise Program,Joint Mobilizations,Manual Therapy, Patient/Caregiver Education, Self-Care/Home Management,Soft Tissue Mobilization,Taping, Therapeutic Activities, Therapeutic Exercises Modalities Cold Pack/Ice Massage,Electric Stimulation,Hot Packs, Ultrasound Next Visit Focus/Plan Next Note Type Treatment Note Next Visit Plan GH mobility to progress mobs at end range overhead motion, train axial elongation
--- NOTE | 2023-03-29 08:16 | PT.OTN ---
Current Diagnoses Adhesive capsulitis of left shoulder (03/29/23) Physical Therapy Treatment Note PT-OP-A Visit Information Start: 02/13/23 15:33 Freq: Status: Active Protocol: Document 03/29/23 07:32 SP (Rec: 03/29/23 08:20 SP [id number]) Out-Patient Physical Therapy Visit Information Visit Information Visit Type Treatment Note Visit Note 10/13 after PN Visit Start Time 07:32 Visit Stop Time 08:16 Total Visit Minutes 44 Visit Number 14 Number of EYE TECHNICIAN Visits 1 Evaluation Information Evaluation Date 02/13/23 PT-OP-B Current Condition Start: 02/13/23 15:33 Freq: Status: Active Protocol: Document 02/13/23 15:35 ES (Rec: 02/13/23 16:52 ES [id number]) Current Condition History of Current Condition Onset Date 1.5 years ago Current Complaints L shoulder pain, stiffness History of Current Condition Fell onto concrete and fractured the L shoulder. No surgery. Was in a sling for a couple months, then did PT after 1-1.5 months after the initial injury. Did as much PT as the insurance covered but didn't get her motion back. Then was caring for her grandbaby and her shoulder gave out. Had a manipulation under anesthesia yesterday along with steroid injection. Future Testing and Treatments Planned Will try PT first, if that's not successful will have arthroscopic surgery to remove some scar tissue. Treatment Goals Patient/Caregiver Goals To get as much ROM as I can get, to not be in pain. PT-OP-C Subjective Start: 02/13/23 15:33 Freq: Status: Active Protocol: Document 03/29/23 07:32 SP (Rec: 03/29/23 08:20 SP [id number]) OP-PT Subjective Patient Comments Patient Comments Pt reports the manual last tx felt gave more scapular ROM. Had MRI yesterday tosee if anything preventing further ROM L shld into abd/ ER. Patient Reported Progress Improving PT-OP-J Posture/Palpation/Skin Start: 02/13/23 15:33 Freq: Status: Active Protocol: Document 02/13/23 15:35 ES (Rec: 02/13/23 16:52 ES [id number]) Posture Evaluation Comments Posture Comments Unremarkable; tends to elevate L shoulder during humeral elevation/flexion/abduction. Increased muscle bulk in L upper trap. PT-OP-K Range of Motion Start: 02/13/23 15:33 Freq: Status: Active Protocol: Document 03/26/23 08:10 [facility] (Rec: 03/26/23 09:32 [facility] [id number]) Shoulder Goniometric Range of Motion Shoulder Left Active Testing Position Standing Flexion 138 Abduction 115 External Rotation at 90 degrees 58 Abduction External Rotation at 0 degrees Abduction 51 Internal Rotation 56 Internal Rotation Behind Back (text) T6 Comments Functional ER to T2 pain w/flex and abd & w/90/90 ER & IR PT-OP-M Strength Start: 02/13/23 15:33 Freq: Status: Active Protocol: Document 03/26/23 08:10 [facility] (Rec: 03/26/23 09:32 [facility] [id number]) Shoulder Strength Shoulder Manual Muscle Testing Left Flexion 4- Good- Extension 5 Normal Abduction (C5) 4 Good External Rotation 4- Good- Internal Rotation 5 Normal Horizontal Abduction 5 Normal Horizontal Adduction 5 Normal Comments Pain with resisted shoulder flexion Elbow/Forearm Strength Elbow and Forearm Manual Muscle Testing Left Flexion (C6) 5 Normal Extension (C7) 5 Normal Pronation 5 Normal Supination 5 Normal Comments pain during tricep testing PT-OP-Q Treatments Start: 02/13/23 15:33 Freq: Status: Active Protocol: Document 03/29/23 07:32 SP (Rec: 03/29/23 08:20 SP [id number]) Therapeutic Exercises Supine Exercises PROM L shld Supine Exercise Name w/ manual: FF, ER Side left Comments improved ER post MWM/ manual Manual Therapy Treatment Soft Tissue Mobilization neck Body Location L UT, LS Mobilization Type Strumming,Sustained Pressure Intensity/Depth Moderate Body Position Sidelying L shld Body Location L lats/teres Mobilization Type Sustained Pressure Intensity/Depth Moderate Body Position Sidelying Comments w/PROM abd Joint Mobilizations ribs Comments ribs 1-3 caudal FM thoracic Comments PA (focus on L side) T1-3; transverse R FM T2-3 L 1st rib Direction Caudal Grade IV Body Position Supine Comments w FF J scapulothoracic Comments MWM L scapular upward rotation during forward flexion in sidelying, contact cues for self corrections and inferior glide to assist self improvement. PT-OP-R Modalities Start: 02/13/23 15:33 Freq: Status: Active Protocol: Document 03/22/23 08:13 [facility] (Rec: 03/22/23 09:06 [facility] [id number]) Hot Pack/Cold Pack Treatment Cold Pack Location L shoulder Patient Position Hooklying Treatment Duration (minutes) 10 PT-OP-T Assessment and Plan Start: 02/13/23 15:33 Freq: Status: Active Protocol: Document 03/29/23 07:32 SP (Rec: 03/29/23 08:20 SP [id number]) Physical Therapy Assessment Goals 3 Impairment Function Group Home Goal (LTG) Patient will be able to lift and carry 20 lbs in L arm at side without increased pain to be able to care for alli. 03/26-able to do 10 lbs; pain w /15 lbs LTG Duration 05/23 2 Impairment Function Straw Hat Washer Operator Goal (LTG) Patient will have improved QuickDASH score to 31% or less indicating significant improvement in function. LTG Duration 6 weeks (03/27/23) - met 1 Impairment ROM Short Term Goal (STG) Patient will increase AROM L shoulder: flexion and abduction to 120 degrees, ER to 30 degrees, IR to 80 degrees. STG Duration 3 weeks - progressing 03/15/23 Straw Hat Washer Operator Goal (LTG) Patient will increase AROM L shoulder: flexion to 140 degrees, ER to 45 degrees and to functionally to T1, IR functionally to L4. LTG Duration 05/31 Assessment Summary Assessment Pt improved FF and ABD OH post manual, my shoulder blade moving little better than when came. Physical Therapy Plan Frequency and Duration Frequency of Treatment 2x/Week Duration of treatment (weeks) 9 Plan of Care Start Date 03/26/23 Plan of Care End Date 05/28/23 Therapeutic Interventions Therapeutic Interventions Home Exercise Program,Joint Mobilizations,Manual Therapy, Patient/Caregiver Education, Self-Care/Home Management,Soft Tissue Mobilization,Taping, Therapeutic Activities, Therapeutic Exercises Modalities Cold Pack/Ice Massage,Electric Stimulation,Hot Packs, Ultrasound Next Visit Focus/Plan Next Note Type Treatment Note Next Visit Plan GH and scapulothoracic mobility to progress mobs at end range overhead motion, train axial elongation
--- NOTE | 2023-04-02 11:17 | PT.OTN ---
Current Diagnoses Adhesive capsulitis of left shoulder (04/02/23) Physical Therapy Treatment Note PT-OP-A Visit Information Start: 02/13/23 15:33 Freq: Status: Active Protocol: Document 04/02/23 07:32 [facility] (Rec: 04/02/23 11:16 [facility] [id number]) Out-Patient Physical Therapy Visit Information Visit Information Visit Type Treatment Note Visit Note 11/10 Visit Start Time 07:33 Visit Stop Time 08:25 Total Visit Minutes 52 Visit Number 15 Number of RABIES INSPECTOR Visits 0 PT-OP-B Current Condition Start: 02/13/23 15:33 Freq: Status: Active Protocol: Document 02/13/23 15:35 ES (Rec: 02/13/23 16:52 ES [id number]) Current Condition History of Current Condition Onset Date 1.5 years ago Current Complaints L shoulder pain, stiffness History of Current Condition Fell onto concrete and fractured the L shoulder. No surgery. Was in a sling for a couple months, then did PT after 1-1.5 months after the initial injury. Did as much PT as the insurance covered but didn't get her motion back. Then was caring for her grandbaby and her shoulder gave out. Had a manipulation under anesthesia yesterday along with steroid injection. Future Testing and Treatments Planned Will try PT first, if that's not successful will have arthroscopic surgery to remove some scar tissue. Treatment Goals Patient/Caregiver Goals To get as much ROM as I can get, to not be in pain. PT-OP-C Subjective Start: 02/13/23 15:33 Freq: Status: Active Protocol: Document 04/02/23 07:32 [facility] (Rec: 04/02/23 11:16 [facility] [id number]) OP-PT Subjective Patient Comments Patient Comments Pt reports sometimes when manual was being done, pt felt like something would snap. she didn't say anything becuase [facility] knows things must hurt. Asked if this is what is supposed to happen Patient Reported Progress Improving PT-OP-J Posture/Palpation/Skin Start: 02/13/23 15:33 Freq: Status: Active Protocol: Document 02/13/23 15:35 ES (Rec: 02/13/23 16:52 ES [id number]) Posture Evaluation Comments Posture Comments Unremarkable; tends to elevate L shoulder during humeral elevation/flexion/abduction. Increased muscle bulk in L upper trap. PT-OP-K Range of Motion Start: 02/13/23 15:33 Freq: Status: Active Protocol: Document 03/26/23 08:10 [facility] (Rec: 03/26/23 09:32 [facility] [id number]) Shoulder Goniometric Range of Motion Shoulder Left Active Testing Position Standing Flexion 138 Abduction 115 External Rotation at 90 degrees 58 Abduction External Rotation at 0 degrees Abduction 51 Internal Rotation 56 Internal Rotation Behind Back (text) T6 Comments Functional ER to T2 pain w/flex and abd & w/90/90 ER & IR PT-OP-M Strength Start: 02/13/23 15:33 Freq: Status: Active Protocol: Document 03/26/23 08:10 [facility] (Rec: 03/26/23 09:32 [facility] [id number]) Shoulder Strength Shoulder Manual Muscle Testing Left Flexion 4- Good- Extension 5 Normal Abduction (C5) 4 Good External Rotation 4- Good- Internal Rotation 5 Normal Horizontal Abduction 5 Normal Horizontal Adduction 5 Normal Comments Pain with resisted shoulder flexion Elbow/Forearm Strength Elbow and Forearm Manual Muscle Testing Left Flexion (C6) 5 Normal Extension (C7) 5 Normal Pronation 5 Normal Supination 5 Normal Comments pain during tricep testing PT-OP-Q Treatments Start: 02/13/23 15:33 Freq: Status: Active Protocol: Document 04/02/23 07:32 [facility] (Rec: 04/02/23 11:16 [facility] [id number]) Manual Therapy Treatment Soft Tissue Mobilization L shld Body Location L pec w/overhead Mobilization Type Sustained Pressure Intensity/Depth Moderate Comments w/dowel overhead Joint Mobilizations L AC, SC jt Comments L AC clavicle ant FM w/dowel in D2 L GH Jt Comments L post shear & translation, inf shear and translation, lat gapping FM and IR FM; progressed to D2 pattern w/ dowel inf glide at humeral head manual facilitation of intrinsics at end ranges PT-OP-R Modalities Start: 02/13/23 15:33 Freq: Status: Active Protocol: Document 04/02/23 07:32 [facility] (Rec: 04/02/23 11:16 [facility] [id number]) Hot Pack/Cold Pack Treatment Cold Pack Location L shoulder Patient Position Hooklying Treatment Duration (minutes) 10 PT-OP-T Assessment and Plan Start: 02/13/23 15:33 Freq: Status: Active Protocol: Document 04/02/23 07:32 [facility] (Rec: 04/02/23 11:16 [facility] [id number]) Physical Therapy Assessment Goals 3 Impairment Function Hat Body Inspector Goal (LTG) Patient will be able to lift and carry 20 lbs in L arm at side without increased pain to be able to care for grandson. 03/26-able to do 10 lbs; pain w /15 lbs LTG Duration 05/23 2 Impairment Function Hat Body Inspector Goal (LTG) Patient will have improved QuickDASH score to 31% or less indicating significant improvement in function. LTG Duration 6 weeks (03/27/23) - met 1 Impairment ROM Short Term Goal (STG) Patient will increase AROM L shoulder: flexion and abduction to 120 degrees, ER to 30 degrees, IR to 80 degrees. STG Duration 3 weeks - progressing 03/15/23 Intermediate Goal (LTG) Patient will increase AROM L shoulder: flexion to 140 degrees, ER to 45 degrees and to functionally to T1, IR functionally to L4. LTG Duration 05/31 Assessment Summary Assessment Pt cont to imrpove ROM w/ manual techniques. She was able to tolerate ER at 90/90 further as PT placed post glide at humeral head so further work for humeral head placement will be helpful for pt. trial of Hadley tape on wrist and KT tape irritated skin. If okay, next time do ant stabilization strip at shoulder. Physical Therapy Plan Frequency and Duration Frequency of Treatment 2x/Week Duration of treatment (weeks) 9 Plan of Care Start Date 03/26/23 Plan of Care End Date 05/28/23 Next Visit Focus/Plan Next Note Type Treatment Note Next Visit Plan GH mobility to progress mobs at end range overhead motion, train axial elongation
--- NOTE | 2023-04-19 12:07 | PT.OPDS ---
Current Diagnoses Adhesive capsulitis of left shoulder (04/02/23) Visit Care Team Role Provider Type Ness Amaya DO Family Provider Physician Primary Care Provider Specialty: Family Practice Address: [address] [place] [address], [facility], [place], [address] Email: [email or web address] Chantale Moffett MD Attending Provider Physician Referring Provider Specialty: Orthopedics Orthopedic Surgery Address: [address] [place] [address], [place], [address] Email: @[email or web address] Visit Number Visit Number 15 Discharge Summary PT-OP-B Current Condition Start: 02/13/23 15:33 Freq: Status: Active Protocol: Document 02/13/23 15:35 ES (Rec: 02/13/23 16:52 ES [id number]) Current Condition History of Current Condition Onset Date 1.5 years ago Current Complaints L shoulder pain, stiffness History of Current Condition Fell onto concrete and fractured the L shoulder. No surgery. Was in a sling for a couple months, then did PT after 1-1.5 months after the initial injury. Did as much PT as the insurance covered but didn't get her motion back. Then was caring for her grandbaby and her shoulder gave out. Had a manipulation under anesthesia yesterday along with steroid injection. Future Testing and Treatments Planned Will try PT first, if that's not successful will have arthroscopic surgery to remove some scar tissue. Treatment Goals Patient/Caregiver Goals To get as much ROM as I can get, to not be in pain. PT-OP-C Subjective Start: 02/13/23 15:33 Freq: Status: Active Protocol: Document 04/02/23 07:32 LR (Rec: 04/02/23 11:16 [facility] [id number]) OP-PT Subjective Patient Comments Patient Comments Pt reports sometimes when manual was being done, pt felt like something would snap. she didn't say anything becuase se knows things must hurt. Asked if this is what is supposed to happen Patient Reported Progress Improving PT-OP-J Posture/Palpation/Skin Start: 02/13/23 15:33 Freq: Status: Active Protocol: Document 02/13/23 15:35 ES (Rec: 02/13/23 16:52 ES [id number]) Posture Evaluation Comments Posture Comments Unremarkable; tends to elevate L shoulder during humeral elevation/flexion/abduction. Increased muscle bulk in L upper trap. PT-OP-K Range of Motion Start: 02/13/23 15:33 Freq: Status: Active Protocol: Document 03/26/23 08:10 [facility] (Rec: 03/26/23 09:32 [facility] [id number]) Shoulder Goniometric Range of Motion Shoulder Left Active Testing Position Standing Flexion 138 Abduction 115 External Rotation at 90 degrees 58 Abduction External Rotation at 0 degrees Abduction 51 Internal Rotation 56 Internal Rotation Behind Back (text) T6 Comments Functional ER to T2 pain w/flex and abd & w/90/90 ER & IR PT-OP-M Strength Start: 02/13/23 15:33 Freq: Status: Active Protocol: Document 03/26/23 08:10 [facility] (Rec: 03/26/23 09:32 [facility] [id number]) Shoulder Strength Shoulder Manual Muscle Testing Left Flexion 4- Good- Extension 5 Normal Abduction (C5) 4 Good External Rotation 4- Good- Internal Rotation 5 Normal Horizontal Abduction 5 Normal Horizontal Adduction 5 Normal Comments Pain with resisted shoulder flexion Elbow/Forearm Strength Elbow and Forearm Manual Muscle Testing Left Flexion (C6) 5 Normal Extension (C7) 5 Normal Pronation 5 Normal Supination 5 Normal Comments pain during tricep testing PT-OP-T Assessment and Plan Start: 02/13/23 15:33 Freq: Status: Active Protocol: Document 04/19/23 12:03 [facility] (Rec: 04/19/23 12:07 [facility] [id number]) Physical Therapy Assessment Goals 3 Impairment Function Master Dyer Goal (LTG) Patient will be able to lift and carry 20 lbs in L arm at side without increased pain to be able to care for grandson. 03/26-able to do 10 lbs; pain w /15 lbs LTG Duration 05/23 2 Impairment Function Correction Goal (LTG) Patient will have improved QuickDASH score to 31% or less indicating significant improvement in function. LTG Duration 6 weeks (03/27/23) - met 1 Impairment ROM Short Term Goal (STG) Patient will increase AROM L shoulder: flexion and abduction to 120 degrees, ER to 30 degrees, IR to 80 degrees. STG Duration 3 weeks - progressing 03/15/23 Correction Goal (LTG) Patient will increase AROM L shoulder: flexion to 140 degrees, ER to 45 degrees and to functionally to T1, IR functionally to L4. LTG Duration 05/31 Assessment Summary Assessment Pt cancelled all scheduled visits d/t ortho telling her to stop PT d/t having arthritis and there is nothing that can be done. Pt was making good progress w/PT and felt like she was improving. Pt was called and is going to be out of town for the next month and has been having a lot of issues for her back, so plans to set up an appt for her LBP and change to a case that includes this. DC at this time d/t pt request. Pt was making good progress prior to this DC but did still have pain w/end ranges. Physical Therapy Plan Discharge Physical Therapy Discharge Reasons Patient Request
== END 2023-04-23 12:49 | disposition home or self-care (01) ==
LOC: PHYS 07:30
PROVIDERS: Absent Provider Family Medicine; Family Provider Family Medicine; PCP Family Medicine; Referring Provider Orthopaedic Surgery; Visit Provider Orthopaedic Surgery
DX: M75.02 Adhesive capsulitis of left shoulder (principal)
CPT/HCPCS: 97010; 97014; 97110; 97140; 97161; G0283

== ENCOUNTER 2023-04-04 13:50 | Outpatient (CLI) | payer MEDICARE, OTHER, SELFPAY ==
--- NOTE | 2023-04-04 13:51 | DI.RAD.S_ITS ---
PROCEDURE: PAIN L/S TRANSFORAMINAL INJECT INDICATIONS: SPONDYLOSIS COMPARISON: , XA, PAIN L INTERLAMINAR/CAUDAL INJ, 12/26/2022, 13:52. FINDINGS: Fluoroscopic spot filming was performed to verify placement of a spinal needle at the L4-L5 level, as labeled on the films. Appropriate location of the needle tip was confirmed by injection of iodinated contrast. IMPRESSION: Intraprocedural examination within normal limits. Dictated by: Emery Hand M.D. on 04/05/2023 at 12:06 Approved by: Emery Hand M.D. on 04/05/2023 at 12:07
[2023-04-04 14:05] VITALS: BP 167/80; PULSE 58; RESP 16; TEMP 36.4; O2SAT 95
[2023-04-04 14:26] VITALS: BP 183/89; PULSE 56; RESP 21; O2SAT 98
[2023-04-04] MEDS: IOPAMIDOL 15 ML VIAL 3 ML INJ (14:29)
[2023-04-04] MEDS: DEXAMETHASONE 10 MG/ML VIAL INJ (14:30)
[2023-04-04 14:31] VITALS: BP 174/90; PULSE 65; RESP 17; O2SAT 100
[2023-04-04 14:36] VITALS: BP 168/84; PULSE 67; RESP 18; O2SAT 100
[2023-04-04 14:38] VITALS: BP 162/84; PULSE 63; RESP 16; O2SAT 98
--- NOTE | 2023-04-04 14:42 | P.PCN_ITS ---
Date/Time/Diagnoses Date of procedure: 04/04/23 Time of procedure: 14:30 Procedure Notes Physician: Campos Sanders Total Fluoroscopy time (seconds): 30 Total sedation minutes: 0 Procedure in detail & Post-procedure care: Right L4-5 Transforaminal Epidural Steroid Injection Indications: Amelia is presenting for treatment of lumbar radiculopathy with low back and leg pain. Preoperative diagnosis: Lumbar radiculopathy Postoperative diagnosis: Same Focused Examination: Ax3 Mood and affect are normal Vital Signs: VSS Consent: Following review of allergies and potential side effects/complications, including, but not necessarily limited to, infection, allergic reaction, local tissue breakdown, stroke, temporary or permanent nerve injury, paralysis, and possible , the patient indicated that they understood and agreed to proce ed.? An informed consent document was signed by the patient, witnessed by a nurse and placed in the patient's chart.? Additionally, other treatment options including medications and physical therapy were reviewed with the patient. All questions were answered. Site was then marked. Anesthesia: Local Position: Prone Monitoring: NIBP, Pulse oximetry, 3 lead EKG Needle used: 22G 5 inch spinal needle Contrast: Isovue 300M Injectate: 10 mg Dexamethasone mixed with 1% lidocaine 1 ml and normal saline 1 mL Technique: The skin was prepped with chloraprep and draped in a sterile fashion. Time out was performed as per protocol. Oxygen applied via NC. Skin and subcutaneous structures of the needle entry site were infiltrated with 3mL of lidocaine 1%. Under fluoroscopic guidance, using an ipsilateral oblique view,?a 22 gauge 5 inch needle was advanced to the base of the right L4?pedicle.? The needle was advanced to the superio-posterior aspect of the neural foramen under lateral view.? Oblique and AP views were rechecked. No paresthesias noted by the patient during needle placement. In AP view and utilizing real-time digital subtraction fluoroscopy, 2 ml contrast was slowly injected. Epidural spread was observed without evidence for intravascular nor intrathecal uptake. Contrast spread was seen craniocaudally. The above injectate was then administered, and the needle was subsequently withdrawn. Band-Aids applied to injection sites. EBL: less than 1 ml Complications: None Post Procedure: Patient was taken to the recovery and monitored. The patient was provided a Pain Log to continue to record the patient's response to the target- specific procedure prior to the patient's follow-up visit with the referring physician. Patient was stable upon discharge. Detailed post procedure instructions were provided. Patient was asked to call in the event of worsening pain, fever, weakness, numbness or bladder or bowel incontinence.
[2023-04-04 14:44] VITALS: BP 158/77; PULSE 56; RESP 16; O2SAT 100
== END 2023-04-04 14:46 | disposition home or self-care (01) ==
LOC: RAD 13:50
PROVIDERS: Family Provider Family Medicine; Referring Provider Anesthesiology; Visit Provider Anesthesiology
DX: M54.16 Radiculopathy, lumbar region (principal)
CPT/HCPCS: 64483; J1100

== ENCOUNTER → 2023-07-25 08:10 | Outpatient (CLI) | payer MEDICARE, OTHER, SELFPAY | PROVIDERS: Family Provider Family Medicine; PCP Family Medicine; Visit Provider Family Medicine | DX: R30.0 Dysuria (principal) | CPT/HCPCS: 87086 ==

== ENCOUNTER → 2023-07-25 08:27 | Outpatient (CLI) | payer MEDICARE, OTHER, SELFPAY ==
[2023-07-25 09:43] LABS: Cholesterol 246 mg/dL (140-199); HDL Cholesterol 67 mg/dL (40-60); LDL Cholesterol Calculated 162 mg/dL (<100); Triglycerides 87 mg/dL (35-150)
== END ==
PROVIDERS: Family Provider Family Medicine; PCP Family Medicine; Referring Provider Family Medicine; Visit Provider Family Medicine
DX: Z13.220 Encounter for screening for lipoid disorders (principal); Z78.0 Asymptomatic menopausal state; E78.00 Pure hypercholesterolemia, unspecified
CPT/HCPCS: 36415; 80061; 82306

== ENCOUNTER → 2023-07-25 13:47 | Outpatient (CLI) | payer MEDICARE, OTHER, SELFPAY ==
--- NOTE | 2023-07-25 13:48 | DI.RAD.S_ITS ---
Bone Density Report Name: TALON JUARES Age: 68 Sex: Female Ethnicity: White Date of : 1955 Indication: osteopenia; Referring Provider: PATTI CAMACHO D.O. Study: Bone densitometry was performed. Exam Date: July 25, 2023 Accession number: [id number] Bone Density: Region BMD T-score Z-score Classification AP Spine(L1-L4) 0.760 -2.6 -0.5 Osteoporosis Femoral Neck (Left) 0.664 -1.7 0.1 Osteopenia Total Hip (Left) 0.749 -1.6 -0.1 Osteopenia Femoral Neck (Right) 0.668 -1.6 0.2 Osteopenia Total Hip (Right) 0.700 -2.0 -0.5 Osteopenia Total Hip Mean 0.724 -1.8 -0.3 Osteopenia World Health Organization criteria for BMD impression classify patients as: Normal (T-score at or above -1.0), Osteopenia (T-score between -1.0 and -2.5), or Osteoporosis (T-score at or below -2.5). 10-year Fracture Risk: FRAX not reported because: Some T-score for Spine Total or Hip Total or Femoral Neck at or below -2.5 Previous Exams: -- Region Exam Age BMD T-score BMD Change BMD Change Date g/cm2 vs Baseline vs Previous -- AP Spine (L1-L4) 07/25/2023 68 0.760 -2.6 -0.044 (-5.4%)# -0.070 (-8.5%)# 09/21/2020 65 0.830 -2.0 0.026 (3.3%)* 0.026 (3.3%)* 09/04/2018 63 0.804 -2.2 Total Hip(Left) 07/25/2023 68 0.749 -1.6 -0.016 (-2.1%)# -0.002 (-0.2%)# 09/21/2020 65 0.750 -1.6 -0.015 (-1.9%) -0.015 (-1.9%) 09/04/2018 63 0.765 -1.5 Total Hip(Right) 07/25/2023 68 0.700 -2.0 -0.026 (-3.6%)# -0.002 (-0.2%)# 09/21/2020 65 0.701 -2.0 -0.024 (-3.3%) -0.024 (-3.3%) 09/04/2018 63 0.726 -1.8 -- *Denotes significance at 95% confidence level, LSC for AP Spine = 0.022 g/cm2, LSC for Total Hip = 0.027 g/cm2 # Denotes dissimilar scan types or analysis methods Impression: The patient has osteoporosis, based on the Total Spine T-score. No significant bone loss was observed. Discussion: INCREASED RISK OF FRACTURE. BONE DENSITY IS UNDESIRABLY LOW AT ONE OR MORE SKELETAL SITES, CONSISTENT WITH POSTMENOPAUSAL OSTEOPOROSIS. This patient's lowest T-score meets the World Health Organization's (WHO) criteria for osteoporosis at one or more sites (T-score -2.5 or below). In untreated patients, the risk of osteoporotic fracture increases approximately two-fold for each 1.0 SD decrease in T-score. Low bone density is not the only risk factor for fracture; also consider factors such as patient's age, frailty or poor health, risk of falling, risk of injury, previous osteoporotic fracture, family history of osteoporosis, cigarette smoking, low body weight, etc. Not everyone with low bone mineral density has osteoporosis; osteomalacia and other metabolic bone disorders should also be considered. Patients who have osteoporosis should be evaluated for specific diseases and conditions (secondary causes) that may cause or contribute to bone loss. The [place] Association of Clinical Endocrinologists (AACE) and National Osteoporosis Foundation (NOF) recommend pharmacologic intervention for all postmenopausal women whose T-score is in this range. The patient should follow a healthful lifestyle (good nutrition with adequate calcium and vitamin D, and appropriate weight-bearing exercise). Follow-Up: Consider a repeat BMD and Vertebral Fracture Assessment (VFA) exam in 2 years or sooner if medically necessary, to reassess this patient's status. Reported by: JOSE MIGUEL VITALE M.D. on 07/25/2023 2:17:00 PM.
== END ==
PROVIDERS: Family Provider Family Medicine; PCP Family Medicine; Referring Provider Family Medicine; Visit Provider Family Medicine
DX: M81.0 Age-related osteoporosis without current pathological fracture (principal); M85.89 Other specified disorders of bone density and structure, multiple sites; Z13.220 Encounter for screening for lipoid disorders; E78.00 Pure hypercholesterolemia, unspecified; R30.0 Dysuria
CPT/HCPCS: 36415; 77080; 80061; 81002; 82306; 87086

== ENCOUNTER → 2023-08-14 06:35 | Outpatient (CLI) | payer MEDICARE, OTHER, SELFPAY ==
--- NOTE | 2023-08-14 06:37 | DI.US.S_ITS ---
PROCEDURE: US RENAL COMPLETE INDICATIONS: Recurrent bladder pain/dysuria TECHNIQUE: Real-time scanning was performed of the kidneys and bladder, with image documentation. COMPARISON: None. FINDINGS: Kidneys: Kidneys are normal in size. Right kidney measures 10.7 cm long; left kidney measures 11.7 cm long. Right renal cortical thickness is 1.1 cm; left renal cortical thickness is 1.0 cm. Renal cortical echotexture is normal. No hydronephrosis or nephrolithiasis. Multiple subcentimeter septated cystic structures within the left renal pelvis with largest measuring 1.7 centimeters. Bladder: Pre-void bladder volume is 56 mL. Post-void residual is 7 mL. Pre-void images demonstrate no intraluminal masses or stones. On pre-void images, right ureteral jets are noted with color Doppler interrogation. Left ureteral jet is not seen. (Of note, ureteral jets may not be detectable in up to 25% of cases due to insufficient differences in specific gravity between ureteral and bladder urine). Miscellaneous: No free pelvic fluid. IMPRESSION: 1. Multiple subcentimeter septated cystic structures within the left renal pelvis with the largest measuring 1.7 centimeters. May represent peripelvic cysts. Recommend follow-up ultrasound in 3-6 months to assess stability. 2. The right kidney is normal in appearance. Dictated by: Judah Tavarez M.D. on 08/14/2023 at 9:53 Approved by: Judah Tavarez M.D. on 08/14/2023 at 9:57
== END ==
PROVIDERS: Family Provider Family Medicine; PCP Family Medicine; Referring Provider Family Medicine; Visit Provider Family Medicine
DX: R30.0 Dysuria (principal); R39.82 Chronic bladder pain
CPT/HCPCS: 76770

== ENCOUNTER → 2023-10-23 11:06 | Outpatient (CLI) | payer MEDICARE, OTHER, SELFPAY ==
[2023-10-23 12:55] LABS: Cholesterol 205 mg/dL (140-199); HDL Cholesterol 70 mg/dL (40-60); LDL Cholesterol Calculated 120 mg/dL (<100); Triglycerides 77 mg/dL (35-150); VLDL Cholesterol Calculated 15 mg/dL (2-30)
== END ==
PROVIDERS: Family Provider Family Medicine; PCP Family Medicine; Referring Provider Family Medicine; Visit Provider Family Medicine
DX: E78.5 Hyperlipidemia, unspecified (principal)
CPT/HCPCS: 36415; 80061

== ENCOUNTER → 2023-11-26 06:39 | Outpatient (CLI) | payer MEDICARE, OTHER, SELFPAY ==
--- NOTE | 2023-11-26 06:40 | DI.US.S_ITS ---
PROCEDURE: US RENAL COMPLETE INDICATIONS: FOLLOW UP ULTRASOUND 08/2023. ONGOING PELVIC PAIN. TECHNIQUE: Real-time scanning was performed of the kidneys and bladder, with image documentation. COMPARISON: [facility], , US RENAL COMPLETE, 08/14/2023, 6:46. FINDINGS: Kidneys: Kidneys are normal in size. Right kidney measures 10.9 cm long; left kidney measures 11.3 cm long. Renal cortical echotexture is normal. Query mild left-sided hydronephrosis versus parapelvic cysts. No right-sided hydronephrosis. No nephrolithiasis. No suspicious solid mass lesions. Bladder: Pre-void bladder volume is 101 mL. Post-void residual is 9 mL. Pre-void images demonstrate no intraluminal masses or stones. On pre-void images, bilateral ureteral jets are noted with color Doppler interrogation. (Of note, ureteral jets may not be detectable in up to 25% of cases due to insufficient differences in specific gravity between ureteral and bladder urine). Miscellaneous: No free pelvic fluid. IMPRESSION: Compared to ultrasound dated August 14, 2023, no interval change. Similar appearance of the left kidney which may represent mild hydronephrosis versus parapelvic cysts. If clinically warranted, a CT urogram can be performed for further evaluation. Dictated by: Bernard Wasserman M.D. on 11/26/2023 at 10:20 Approved by: Bernard Wasserman M.D. on 11/26/2023 at 10:26
== END ==
LOC: US 06:40
PROVIDERS: Family Provider Family Medicine; PCP Family Medicine; Referring Provider Family Medicine; Visit Provider Family Medicine
DX: R39.82 Chronic bladder pain (principal); R30.0 Dysuria
CPT/HCPCS: 76770

== ENCOUNTER 2023-12-05 08:15 | Outpatient (RCR) | payer MEDICARE, OTHER, SELFPAY ==
--- NOTE | 2023-06-21 18:43 | PT.OIE ---
Current Diagnoses Radiculopathy, lumbar region (06/21/23) Difficulty in walking, not elsewhere classified (06/21/23) Abnormal posture (06/21/23) Weakness (06/21/23) Past Medical History (Last Reviewed 05/14/23 @ 08:12 by Campos Sanders MD) Abnormal Pap smear of cervix (~1995) Chicken pox Foot pain (~2014) Irritable bowel syndrome Measles Plantar warts Rosacea Situational anxiety Tinnitus (~1989) Past Surgical History (Last Reviewed 05/14/23 @ 08:12 by Campos Sanders MD) History of hysterectomy (~1995) History of tonsillectomy (~1960) Visit Care Team Role Provider Type Ness Amaya DO Family Provider Physician Primary Care Provider Specialty: Family Practice Address: [address] [place] [address], [id number] Email: [email or web address] Campos Sanders MD Attending Provider Physician Referring Provider Specialty: Anesthesiology Interventional Radiology Pain Management Address: [address] [place] [address], [address] Email: [email or web address] Physical Therapy Initial Evaluation PT-OP-A Visit Information Start: 05/23/23 15:45 Freq: Status: Active Protocol: Document 06/21/23 07:30 [facility] (Rec: 06/21/23 08:18 [facility] [id number]) Out-Patient Physical Therapy Visit Information Visit Information Visit Type Initial Evaluation Visit Note 09/12 Visit Start Time 07:31 Visit Stop Time 08:17 Total Visit Minutes 46 Visit Number 1 Number of MASTIC WORKER Visits 0 PT-OP-B Current Condition Start: 05/23/23 15:45 Freq: Status: Active Protocol: Document 06/21/23 07:30 [facility] (Rec: 06/21/23 08:18 [facility] [id number]) Current Condition History of Current Condition Current Complaints 25 years ago History of Current Condition Pt reports 25 years ago she woke up screaming and ended up in the hospital and in a w/c and L4-5 desicated disc. She had back pain and pain down her leg and loss of sensory. She had 2 spinal injections that made it so she did not need surgery and it was gone 20 years. Its back now. She wants to work on [employer] to help support that area. She has had 2 injections and that hasn't help up much. It started a few months ago. 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 Seh cannot sit or stand for an extended period. She walks at least 10 miles a day total split up throughout trails and concrete. She has been using 1lb wts on her hands. She is not back at the gym, but doing small wts w/shoulder. Pt did have pain down R leg until injection. Pain is more on R>L . She does have history of L broken shoulder that is partially recovered. Has Clay shoes recommended by lung puller. Pt is avoiding her typical exercises as she is worried they might make soemthing worse. Pt used to be able to do SLS on blue and black side bosu and touch toes prior to fal that broke shoulder. After she fell, it dec her confidence. Prior Treatments and Tests injections IMPRESSION: 1. Multilevel degenerative disc disease as detailed above . 2. Moderate central canal stenosis at L4-5. Treatment Goals Patient/Caregiver Goals Be able to walk and carry full amount of groceries to/from store, be back at the gym working out, improve balance PT-OP-C Subjective Start: 05/23/23 15:45 Freq: Status: Active Protocol: Document 06/21/23 07:30 [facility] (Rec: 06/21/23 08:18 [facility] [id number]) Patient Questionnaires Lower Extremity Functional Scale LEFS Score 57/80 Oswestry Low Back Index Oswestry Score 13/50 (26%) OP-PT Pain Assessment Location LBP Pain Location Details R>L Lumbar Scale Used 2/10; worst 5/10 Frequency Constant Pain Duration about 30 min if lay hooklying Pain Aggravating Factors Lifting Other Pain Aggravating Factors sit/stand extended, carrying, walking mildly Other Pain Alleviating Factors alieve, s/l, hooklying PT-OP-D Balance Start: 05/23/23 15:45 Freq: Status: Active Protocol: Document 06/21/23 07:30 [facility] (Rec: 06/21/23 08:18 [facility] [id number]) Balance Tests Single Limb Standing Single Limb- Right 13 sec slight lat shear Single Limb- Left >30 sec slight lat shear PT-OP-F Manual Assessment Start: 05/23/23 15:45 Freq: Status: Active Protocol: Document 06/21/23 07:30 [facility] (Rec: 06/21/23 08:18 [facility] [id number]) Manual Assessments Soft Tissue Assessment Soft Tissue Mobility Assessment R SI feels bruised. glute tenderness -feels like pins and needles Joint Mobility Assessment Joint Mobility Assessment pain in back w/passive hip ext PT-OP-G Mobility & Gait Start: 05/23/23 15:45 Freq: Status: Active Protocol: Document 06/21/23 07:30 [facility] (Rec: 06/21/23 08:18 [facility] [id number]) OP Gait Assessment Comments Gait Comments dec push off, dec scap movement, dec stance time RLE, dec push off overall, PT-OP-J Posture/Palpation/Skin Start: 05/23/23 15:45 Freq: Status: Active Protocol: Document 06/21/23 07:30 [facility] (Rec: 06/21/23 08:18 [facility] [id number]) Posture Evaluation [facility] Postural Classification System [facility] Postural Classifications Posterior/Posterior Vertebral Compression Test 0 Lumbar Protective Mechanism Left AP 0 Lumbar Protective Mechanism Right AP 0 Lumbar Protective Mechanism Left PA 1 Lumbar Protective Mechanism Right PA 0 PT-OP-K Range of Motion Start: 05/23/23 15:45 Freq: Status: Active Protocol: Document 06/21/23 07:30 [facility] (Rec: 06/21/23 08:18 [facility] [id number]) Lumbar Spine Range of Motion Lumbar Spine Active Percentage Flexion 20 Extension 40 Rotation Left 40 Rotation Right 50 Lateral Flexion Left 50 Lateral Flexion Right 50 Comments pain ext & L lat flex PT-OP-L Special Tests Start: 05/23/23 15:45 Freq: Status: Active Protocol: Document 06/21/23 07:30 [facility] (Rec: 06/21/23 08:18 [facility] [id number]) Special Tests Lumbar Spine Special Tests Slump Test Results dural tension L PT-OP-M Strength Start: 05/23/23 15:45 Freq: Status: Active Protocol: Document 06/21/23 07:30 [facility] (Rec: 06/21/23 08:18 [facility] [id number]) Hip Strength Hip Manual Muscle Testing Right Flexion (L2) 3 Fair Extension (S1) 3 Fair Abduction 4 Good Adduction 5 Normal External Rotation 3+ Fair+ Internal Rotation 3+ Fair+ Comments pain w/flex; HS cramp Left Flexion (L2) 3 Fair Extension (S1) 3+ Fair+ Abduction 5 Normal Adduction 3 Fair External Rotation 4- Good- Internal Rotation 4 Good Comments pain w/add Knee Strength Knee Manual Muscle Testing Right Flexion (S2) 4+ Good+ Extension (L3) 5 Normal Left Flexion (S2) 4+ Good+ Extension (L3) 5 Normal Ankle/Foot Strength Ankle and Foot Manual Muscle Testing Right Dorsiflexion (L4) 5 Normal Plantarflexion (S1) 5 Normal Inversion 5 Normal Eversion (S1) 5 Normal Left Dorsiflexion (L4) 5 Normal Plantarflexion (S1) 5 Normal Inversion 5 Normal Eversion (S1) 5 Normal Comments 20 heel raises B PT-OP-T Assessment and Plan Start: 05/23/23 15:45 Freq: Status: Active Protocol: Document 06/21/23 07:30 [facility] (Rec: 06/21/23 08:18 [facility] [id number]) Physical Therapy Assessment Rehab Potential Rehabilitation Potential Good Evaluation Complexity Number of Personal Factors/Comorbidities 3 or More Number of Body Systems Impaired 4 or More Clinical Presentation at Evaluation Evolving Impairments Impairments Activity Tolerance,Balance, Functional Activities, Functional Mobility,Gait,Pain, Posture,ROM,Soft Tissue Mobility,Strength Goals posture Correction Goal (LTG) Pt will show improved posture by scoring at least 3/5 on VCT LTG Duration 09/13/23 balance Correction Goal (LTG) Pt will be able to do SLS on RLE 30 sec w/o lat hip shear or deviations. LTG Duration 09/03/23 strength Short Term Goal (STG) Pt will be indep w/HEP STG Duration 08/03/23 Manual Arts Teacher Goal (LTG) Pt will score at least 3/5 on all planes LPM and 5/5 on BLE strength in all planes to show iproved stability and dec instances of pain. LTG Duration 09/13/23 activities Short Term Goal (STG) Pt will be able to return to the gym to work out without inc pain greater than 2 points . STG Duration 08/03/23 Manual Arts Teacher Goal (LTG) Pt will be able to carry her full load to/from the grocery store w/o pain greater than 2/ 10 after LTG Duration 09/13/23 Assessment Summary Assessment Pt presents w/recent worsening of chronic LBP. She has history of radicular pain w/ imaging showing dessication of L4-5 disc causing central canal stenosis. She does have R>L hip weakness, but there was no notable weakness at knee or ankle region. She demonstrates poor core stabiltiy and will require HEP and PT treatment to improve facilitation of core muscles. She would bneefit from postural training to help dec strain on back and improve alignment. Pt is typically very active but is noting pain w/extended sitting/standing along w/any carrying/lifting. Pt would benefit from skilled PT to work on these deficits and improve functional ability w/less pain. Physical Therapy Plan Frequency and Duration Frequency of Treatment 1-2x/wk Duration of treatment (weeks) 12 Plan of Care Start Date 06/21/23 Plan of Care End Date 09/13/23 Therapeutic Interventions Therapeutic Interventions Balance Training,Gait Training ,Home Exercise Program,Joint Mobilizations,Manual Therapy, Neuromuscular Re-education, Orthotic/Prosthetic Management ,Patient/Caregiver Education, Self-Care/Home Management,Soft Tissue Mobilization,Taping, Therapeutic Activities, Therapeutic Exercises Modalities Cold Pack/Ice Massage,Electric Stimulation,Hot Packs, Infrared Therapy,Traction- Mechanical,Ultrasound Next Visit Focus/Plan Next Note Type Treatment Note Next Visit Plan hip and innominate mobilization, STM to glutes & paraspinals, HEP: supine core isometric abdominal series, LTR, clamshells, squats, wall posture
--- NOTE | 2023-06-21 18:43 | PT.OPPOC ---
Physical, Occupational & Speech Therapy At [facility] Current Diagnoses Radiculopathy, lumbar region (06/21/23) Difficulty in walking, not elsewhere classified (06/21/23) Abnormal posture (06/21/23) Weakness (06/21/23) Visit Care Team Role Provider Type Ness Amaya DO Family Provider Physician Primary Care Provider Specialty: Family Practice Address: [address] [place] [address], [address] Email: [email or web address] Campos Sanders MD Attending Provider Physician Referring Provider Specialty: Anesthesiology Interventional Radiology Pain Management Address: [address] [place] [address], [address] Email: [email or web address] Plan Of Care PT-OP-T Assessment and Plan Start: 05/23/23 15:45 Freq: Status: Active Protocol: Document 06/21/23 07:30 [facility] (Rec: 06/21/23 08:18 [facility] [id number]) Physical Therapy Assessment Rehab Potential Rehabilitation Potential Good Evaluation Complexity Number of Personal Factors/Comorbidities 3 or More Number of Body Systems Impaired 4 or More Clinical Presentation at Evaluation Evolving Impairments Impairments Activity Tolerance,Balance, Functional Activities, Functional Mobility,Gait,Pain, Posture,ROM,Soft Tissue Mobility,Strength Goals posture Public Health Worker Goal (LTG) Pt will show improved posture by scoring at least 3/5 on VCT LTG Duration 09/13/23 balance Public Health Worker Goal (LTG) Pt will be able to do SLS on RLE 30 sec w/o lat hip shear or deviations. LTG Duration 09/03/23 strength Short Term Goal (STG) Pt will be indep w/HEP STG Duration 08/03/23 Care Home Goal (LTG) Pt will score at least 3/5 on all planes LPM and 5/5 on BLE strength in all planes to show iproved stability and dec instances of pain. LTG Duration 09/13/23 activities Short Term Goal (STG) Pt will be able to return to the gym to work out without inc pain greater than 2 points . STG Duration 08/03/23 Care Home Goal (LTG) Pt will be able to carry her full load to/from the grocery store w/o pain greater than 2/ 10 after LTG Duration 09/13/23 Assessment Summary Assessment Pt presents w/recent worsening of chronic LBP. She has history of radicular pain w/ imaging showing dessication of L4-5 disc causing central canal stenosis. She does have R>L hip weakness, but there was no notable weakness at knee or ankle region. She demonstrates poor core stabiltiy and will require HEP and PT treatment to improve facilitation of core muscles. She would bneefit from postural training to help dec strain on back and improve alignment. Pt is typically very active but is noting pain w/extended sitting/standing along w/any carrying/lifting. Pt would benefit from skilled PT to work on these deficits and improve functional ability w/less pain. Physical Therapy Plan Frequency and Duration Frequency of Treatment 1-2x/wk Duration of treatment (weeks) 12 Plan of Care Start Date 06/21/23 Plan of Care End Date 09/13/23 Therapeutic Interventions Therapeutic Interventions Balance Training,Gait Training ,Home Exercise Program,Joint Mobilizations,Manual Therapy, Neuromuscular Re-education, Orthotic/Prosthetic Management ,Patient/Caregiver Education, Self-Care/Home Management,Soft Tissue Mobilization,Taping, Therapeutic Activities, Therapeutic Exercises Modalities Cold Pack/Ice Massage,Electric Stimulation,Hot Packs, Infrared Therapy,Traction- Mechanical,Ultrasound Next Visit Focus/Plan Next Note Type Treatment Note Next Visit Plan hip and innominate mobilization, STM to glutes & paraspinals, HEP: supine core isometric abdominal series, LTR, clamshells, squats, wall posture Plan of Care Dates Plan of Care Start Date 06/21/23 Plan of Care End Date 09/13/23 Electronically Signed by: Shawnee Bates, PT 06/21/23 0888 If you are in agreement with this Plan of Care, please return a signed and dated copy. I have reviewed this Plan of Care and certify that the skilled therapy services above are required to meet the patient?s needs. Physician Signature Date Printed Name and Credentials Clinical Instructor Signature Printed Name and Credentials
--- NOTE | 2023-06-25 09:03 | PT.OTN ---
Current Diagnoses Radiculopathy, lumbar region (06/25/23) Difficulty in walking, not elsewhere classified (06/25/23) Abnormal posture (06/25/23) Weakness (06/25/23) Physical Therapy Treatment Note PT-OP-A Visit Information Start: 05/23/23 15:45 Freq: Status: Active Protocol: Document 06/25/23 08:18 [facility] (Rec: 06/25/23 09:03 [facility] [id number]) Out-Patient Physical Therapy Visit Information Visit Information Visit Type Treatment Note Visit Note 10/13 Visit Start Time 08:19 Visit Stop Time 09:10 Total Visit Minutes 51 Visit Number 2 Number of SECTION BEAMER Visits 0 PT-OP-B Current Condition Start: 05/23/23 15:45 Freq: Status: Active Protocol: Document 06/21/23 07:30 [facility] (Rec: 06/21/23 08:18 [facility] [id number]) Current Condition History of Current Condition Current Complaints 25 years ago History of Current Condition Pt reports 25 years ago she woke up screaming and ended up in the hospital and in a w/c and L4-5 desicated disc. She had back pain and pain down her leg and loss of sensory. She had 2 spinal injections that made it so she did not need surgery and it was gone 20 years. Its back now. She wants to work on [employer] to help support that area. She has had 2 injections and that hasn't help up much. It started a few months ago. 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 [facility] cannot sit or stand for an extended period. She walks at least 10 miles a day total split up throughout trails and concrete. She has been using 1lb wts on her hands. She is not back at the gym, but doing small wts w/shoulder. Pt did have pain down R leg until injection. Pain is more on R>L . She does have history of L broken shoulder that is partially recovered. Has Clay shoes recommended by [employer] assistant manager. Pt is avoiding her typical exercises as she is worried they might make soemthing worse. Pt used to be able to do SLS on blue and black side bosu and touch toes prior to fal that broke shoulder. After she fell, it dec her confidence. Prior Treatments and Tests injections IMPRESSION: 1. Multilevel degenerative disc disease as detailed above . 2. Moderate central canal stenosis at L4-5. Treatment Goals Patient/Caregiver Goals Be able to walk and carry full amount of groceries to/from store, be back at the gym working out, improve balance PT-OP-C Subjective Start: 05/23/23 15:45 Freq: Status: Active Protocol: Document 06/25/23 08:18 [facility] (Rec: 06/25/23 09:03 [facility] [id number]) OP-PT Subjective Patient Comments Patient Comments Pt reports doing okay so far but its early now PT-OP-D Balance Start: 05/23/23 15:45 Freq: Status: Active Protocol: Document 06/21/23 07:30 [facility] (Rec: 06/21/23 08:18 [facility] [id number]) Balance Tests Single Limb Standing Single Limb- Right 13 sec slight lat shear Single Limb- Left >30 sec slight lat shear PT-OP-F Manual Assessment Start: 05/23/23 15:45 Freq: Status: Active Protocol: Document 06/21/23 07:30 [facility] (Rec: 06/21/23 08:18 [facility] [id number]) Manual Assessments Soft Tissue Assessment Soft Tissue Mobility Assessment R SI feels bruised. glute tenderness -feels like pins and needles Joint Mobility Assessment Joint Mobility Assessment pain in back w/passive hip ext PT-OP-G Mobility & Gait Start: 05/23/23 15:45 Freq: Status: Active Protocol: Document 06/21/23 07:30 [facility] (Rec: 06/21/23 08:18 [facility] [id number]) OP Gait Assessment Comments Gait Comments dec push off, dec scap movement, dec stance time RLE, dec push off overall, PT-OP-J Posture/Palpation/Skin Start: 05/23/23 15:45 Freq: Status: Active Protocol: Document 06/21/23 07:30 [facility] (Rec: 06/21/23 08:18 [facility] [id number]) Posture Evaluation Mili Postural Classification System Mili Postural Classifications Posterior/Posterior Vertebral Compression Test 0 Lumbar Protective Mechanism Left AP 0 Lumbar Protective Mechanism Right AP 0 Lumbar Protective Mechanism Left PA 1 Lumbar Protective Mechanism Right PA 0 PT-OP-K Range of Motion Start: 05/23/23 15:45 Freq: Status: Active Protocol: Document 06/21/23 07:30 [facility] (Rec: 06/21/23 08:18 [facility] [id number]) Lumbar Spine Range of Motion Lumbar Spine Active Percentage Flexion 20 Extension 40 Rotation Left 40 Rotation Right 50 Lateral Flexion Left 50 Lateral Flexion Right 50 Comments pain ext & L lat flex PT-OP-L Special Tests Start: 05/23/23 15:45 Freq: Status: Active Protocol: Document 06/21/23 07:30 [facility] (Rec: 06/21/23 08:18 [facility] [id number]) Special Tests Lumbar Spine Special Tests Slump Test Results dural tension L PT-OP-M Strength Start: 05/23/23 15:45 Freq: Status: Active Protocol: Document 06/21/23 07:30 [facility] (Rec: 06/21/23 08:18 [facility] [id number]) Hip Strength Hip Manual Muscle Testing Right Flexion (L2) 3 Fair Extension (S1) 3 Fair Abduction 4 Good Adduction 5 Normal External Rotation 3+ Fair+ Internal Rotation 3+ Fair+ Comments pain w/flex; HS cramp Left Flexion (L2) 3 Fair Extension (S1) 3+ Fair+ Abduction 5 Normal Adduction 3 Fair External Rotation 4- Good- Internal Rotation 4 Good Comments pain w/add Knee Strength Knee Manual Muscle Testing Right Flexion (S2) 4+ Good+ Extension (L3) 5 Normal Left Flexion (S2) 4+ Good+ Extension (L3) 5 Normal Ankle/Foot Strength Ankle and Foot Manual Muscle Testing Right Dorsiflexion (L4) 5 Normal Plantarflexion (S1) 5 Normal Inversion 5 Normal Eversion (S1) 5 Normal Left Dorsiflexion (L4) 5 Normal Plantarflexion (S1) 5 Normal Inversion 5 Normal Eversion (S1) 5 Normal Comments 20 heel raises B PT-OP-Q Treatments Start: 05/23/23 15:45 Freq: Status: Active Protocol: Document 06/25/23 08:18 [facility] (Rec: 06/25/23 09:03 [facility] [id number]) Therapeutic Exercises Supine Exercises LTR Supine Exercise Name segmental control Side bilateral Reps/Minutes 10 abdominal series Supine Exercise Name 1.flex 2. diagonal 3. ext 4. flex Reps/Minutes 30 sec ea Sidelying Exercises clamshell Side bilateral Equipment Used L2 Reps/Minutes 6 ea Manual Therapy Treatment Soft Tissue Mobilization glutes Body Location R sup Mobilization Type Sustained Pressure Intensity/Depth Moderate Body Position Prone Comments w/hip IR/ER Joint Mobilizations innominate Joint R caudal FM sacrum Joint R caudal; L sup UPA ; R mid UPA Body Position Prone Comments FM w/LTR hip Body Position Prone Comments B IR on axis FM ; R ER on axis FM w/manual faciliation at end range and COI PT-OP-R Modalities Start: 05/23/23 15:45 Freq: Status: Active Protocol: Document 06/25/23 08:18 [facility] (Rec: 06/25/23 09:03 [facility] [id number]) Hot Pack/Cold Pack Treatment Cold Pack Location LB Patient Position Hooklying Treatment Duration (minutes) 10 PT-OP-T Assessment and Plan Start: 05/23/23 15:45 Freq: Status: Active Protocol: Document 06/25/23 08:18 [facility] (Rec: 06/25/23 09:03 [facility] [id number]) Physical Therapy Assessment Goals posture Collection Administrator Goal (LTG) Pt will show improved posture by scoring at least 3/5 on VCT LTG Duration 09/13/23 balance Retirement Goal (LTG) Pt will be able to do SLS on RLE 30 sec w/o lat hip shear or deviations. LTG Duration 09/03/23 strength Short Term Goal (STG) Pt will be indep w/HEP STG Duration 08/03/23 Collection Administrator Goal (LTG) Pt will score at least 3/5 on all planes LPM and 5/5 on BLE strength in all planes to show iproved stability and dec instances of pain. LTG Duration 09/13/23 activities Short Term Goal (STG) Pt will be able to return to the gym to work out without inc pain greater than 2 points . STG Duration 08/03/23 Collection Administrator Goal (LTG) Pt will be able to carry her full load to/from the grocery store w/o pain greater than 2/ 10 after LTG Duration 09/13/23 Assessment Summary Assessment Pt required cues throughout and towel roll w/abdominal series to stabilize pelvis. She did well with mobilizations and had improved hip and trunk ROM. Physical Therapy Plan Frequency and Duration Frequency of Treatment 1-2x/wk Duration of treatment (weeks) 12 Plan of Care Start Date 06/21/23 Plan of Care End Date 09/13/23 Next Visit Focus/Plan Next Note Type Treatment Note Next Visit Plan hip and innominate mobilization, STM to paraspinals, review HEP and advance as able: supine core isometric abdominal series, LTR, clamshells, squats, wall posture
--- NOTE | 2023-06-28 08:55 | PT.OTN ---
Current Diagnoses Radiculopathy, lumbar region (06/28/23) Difficulty in walking, not elsewhere classified (06/28/23) Abnormal posture (06/28/23) Weakness (06/28/23) Physical Therapy Treatment Note PT-OP-A Visit Information Start: 05/23/23 15:45 Freq: Status: Active Protocol: Document 06/28/23 07:30 [facility] (Rec: 06/28/23 08:55 [facility] [id number]) Out-Patient Physical Therapy Visit Information Visit Information Visit Type Treatment Note Visit Note 11/10 Student PT Bouchra Duong participated in treatment session w/PT direct supervision and direction Visit Start Time 07:31 Visit Stop Time 08:26 Total Visit Minutes 55 Visit Number 3 Number of CONFLICT RESOLUTION PROFESSIONAL Visits 0 PT-OP-B Current Condition Start: 05/23/23 15:45 Freq: Status: Active Protocol: Document 06/21/23 07:30 [facility] (Rec: 06/21/23 08:18 [facility] [id number]) Current Condition History of Current Condition Current Complaints 25 years ago History of Current Condition Pt reports 25 years ago she woke up screaming and ended up in the hospital and in a w/c and L4-5 desicated disc. She had back pain and pain down her leg and loss of sensory. She had 2 spinal injections that made it so she did not need surgery and it was gone 20 years. Its back now. She wants to work on [employer] to help support that area. She has had 2 injections and that hasn't help up much. It started a few months ago. 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 [facility] cannot sit or stand for an extended period. She walks at least 10 miles a day total split up throughout trails and concrete. She has been using 1lb wts on her hands. She is not back at the gym, but doing small wts w/shoulder. Pt did have pain down R leg until injection. Pain is more on R>L . She does have history of L broken shoulder that is partially recovered. Has Clay shoes recommended by instructor bridge. Pt is avoiding her typical exercises as she is worried they might make soemthing worse. Pt used to be able to do SLS on blue and black side bosu and touch toes prior to fal that broke shoulder. After she fell, it dec her confidence. Prior Treatments and Tests injections IMPRESSION: 1. Multilevel degenerative disc disease as detailed above . 2. Moderate central canal stenosis at L4-5. Treatment Goals Patient/Caregiver Goals Be able to walk and carry full amount of groceries to/from store, be back at the gym working out, improve balance PT-OP-C Subjective Start: 05/23/23 15:45 Freq: Status: Active Protocol: Document 06/28/23 07:30 [facility] (Rec: 06/28/23 08:55 [facility] [id number]) OP-PT Subjective Patient Comments Patient Comments Pt reports a little ache after last time but it didn't last too long. Ice at the clinic helped PT-OP-D Balance Start: 05/23/23 15:45 Freq: Status: Active Protocol: Document 06/21/23 07:30 [facility] (Rec: 06/21/23 08:18 [facility] [id number]) Balance Tests Single Limb Standing Single Limb- Right 13 sec slight lat shear Single Limb- Left >30 sec slight lat shear PT-OP-F Manual Assessment Start: 05/23/23 15:45 Freq: Status: Active Protocol: Document 06/21/23 07:30 [facility] (Rec: 06/21/23 08:18 [facility] [id number]) Manual Assessments Soft Tissue Assessment Soft Tissue Mobility Assessment R SI feels bruised. glute tenderness -feels like pins and needles Joint Mobility Assessment Joint Mobility Assessment pain in back w/passive hip ext PT-OP-G Mobility & Gait Start: 05/23/23 15:45 Freq: Status: Active Protocol: Document 06/21/23 07:30 [facility] (Rec: 06/21/23 08:18 [facility] [id number]) OP Gait Assessment Comments Gait Comments dec push off, dec scap movement, dec stance time RLE, dec push off overall, PT-OP-J Posture/Palpation/Skin Start: 05/23/23 15:45 Freq: Status: Active Protocol: Document 06/21/23 07:30 [facility] (Rec: 06/21/23 08:18 [facility] [id number]) Posture Evaluation Mili Postural Classification System Mili Postural Classifications Posterior/Posterior Vertebral Compression Test 0 Lumbar Protective Mechanism Left AP 0 Lumbar Protective Mechanism Right AP 0 Lumbar Protective Mechanism Left PA 1 Lumbar Protective Mechanism Right PA 0 PT-OP-K Range of Motion Start: 05/23/23 15:45 Freq: Status: Active Protocol: Document 06/21/23 07:30 [facility] (Rec: 06/21/23 08:18 [facility] [id number]) Lumbar Spine Range of Motion Lumbar Spine Active Percentage Flexion 20 Extension 40 Rotation Left 40 Rotation Right 50 Lateral Flexion Left 50 Lateral Flexion Right 50 Comments pain ext & L lat flex PT-OP-L Special Tests Start: 05/23/23 15:45 Freq: Status: Active Protocol: Document 06/21/23 07:30 [facility] (Rec: 06/21/23 08:18 [facility] [id number]) Special Tests Lumbar Spine Special Tests Slump Test Results dural tension L PT-OP-M Strength Start: 05/23/23 15:45 Freq: Status: Active Protocol: Document 06/21/23 07:30 [facility] (Rec: 06/21/23 08:18 [facility] [id number]) Hip Strength Hip Manual Muscle Testing Right Flexion (L2) 3 Fair Extension (S1) 3 Fair Abduction 4 Good Adduction 5 Normal External Rotation 3+ Fair+ Internal Rotation 3+ Fair+ Comments pain w/flex; HS cramp Left Flexion (L2) 3 Fair Extension (S1) 3+ Fair+ Abduction 5 Normal Adduction 3 Fair External Rotation 4- Good- Internal Rotation 4 Good Comments pain w/add Knee Strength Knee Manual Muscle Testing Right Flexion (S2) 4+ Good+ Extension (L3) 5 Normal Left Flexion (S2) 4+ Good+ Extension (L3) 5 Normal Ankle/Foot Strength Ankle and Foot Manual Muscle Testing Right Dorsiflexion (L4) 5 Normal Plantarflexion (S1) 5 Normal Inversion 5 Normal Eversion (S1) 5 Normal Left Dorsiflexion (L4) 5 Normal Plantarflexion (S1) 5 Normal Inversion 5 Normal Eversion (S1) 5 Normal Comments 20 heel raises B PT-OP-Q Treatments Start: 05/23/23 15:45 Freq: Status: Active Protocol: Document 06/28/23 07:30 [facility] (Rec: 06/28/23 08:55 [facility] [id number]) Therapeutic Exercises Supine Exercises LTR Supine Exercise Name segmental control Side bilateral Reps/Minutes 4 abdominal series Supine Exercise Name 1.flex 2. diagonal 3. ext 4. flex Reps/Minutes 30 sec ea Sidelying Exercises clamshell Side bilateral Equipment Used L2 Reps/Minutes 3 ea Standing Exercises hip flexor stretch Side bilateral Reps/Minutes 1 min Manual Therapy Treatment Soft Tissue Mobilization hip flexor Body Location L>R iliacus and inguinal ligament Mobilization Type Sustained Pressure Comments w/hip IR/ER & heel slides Joint Mobilizations innominate Joint B IR FM prone & hooklying L flex FM Comments manual facilitation at end range hip Comments B inf glide supine FM PT-OP-R Modalities Start: 05/23/23 15:45 Freq: Status: Active Protocol: Document 06/28/23 07:30 [facility] (Rec: 06/28/23 08:55 [facility] [id number]) Hot Pack/Cold Pack Treatment Cold Pack Location LB & B hips Patient Position Hooklying Treatment Duration (minutes) 10 PT-OP-T Assessment and Plan Start: 05/23/23 15:45 Freq: Status: Active Protocol: Document 06/28/23 07:30 [facility] (Rec: 06/28/23 08:55 [facility] [id number]) Physical Therapy Assessment Goals posture [employer] Aging Director Goal (LTG) Pt will show improved posture by scoring at least 3/5 on VCT LTG Duration 09/13/23 balance [employer] Aging Director Goal (LTG) Pt will be able to do SLS on RLE 30 sec w/o lat hip shear or deviations. LTG Duration 09/03/23 strength Short Term Goal (STG) Pt will be indep w/HEP STG Duration 08/03/23 Council [employer] Aging Director Goal (LTG) Pt will score at least 3/5 on all planes LPM and 5/5 on BLE strength in all planes to show iproved stability and dec instances of pain. LTG Duration 09/13/23 activities Short Term Goal (STG) Pt will be able to return to the gym to work out without inc pain greater than 2 points . STG Duration 08/03/23 Skilled Nursing Goal (LTG) Pt will be able to carry her full load to/from the grocery store w/o pain greater than 2/ 10 after LTG Duration 09/13/23 Assessment Summary Assessment Pt had improved hip flex w/dec hip impingement feeling on L and dec back pain after manual . She did well with exercises and did not require cues w/ excercies. She was familiar w/ hip flexor stretch so did well w/min cues. Physical Therapy Plan Frequency and Duration Frequency of Treatment 1-2x/wk Duration of treatment (weeks) 12 Plan of Care Start Date 06/21/23 Plan of Care End Date 09/13/23 Next Visit Focus/Plan Next Note Type Treatment Note Next Visit Plan look at R inguinal ligament/ iliacus, STM to paraspinals, work on abd/add of innominate and ext; advance core exercises/start working on hip hinge training and squats
--- NOTE | 2023-07-04 09:00 | PT.OTN ---
Current Diagnoses Radiculopathy, lumbar region (07/04/23) Difficulty in walking, not elsewhere classified (07/04/23) Abnormal posture (07/04/23) Weakness (07/04/23) Physical Therapy Treatment Note PT-OP-A Visit Information Start: 05/23/23 15:45 Freq: Status: Active Protocol: Document 07/04/23 08:21 SP (Rec: 07/04/23 09:07 SP [id number]) Out-Patient Physical Therapy Visit Information Visit Information Visit Type Treatment Note Visit Note 01/10 Visit Start Time 08:21 Visit Stop Time 09:00 Total Visit Minutes 39 Visit Number 5 Number of MORTGAGE LOAN INTERVIEWER Visits 1 PT-OP-B Current Condition Start: 05/23/23 15:45 Freq: Status: Active Protocol: Document 06/21/23 07:30 LR (Rec: 06/21/23 08:18 [facility] [id number]) Current Condition History of Current Condition Current Complaints 25 years ago History of Current Condition Pt reports 25 years ago she woke up screaming and ended up in the hospital and in a w/c and L4-5 desicated disc. She had back pain and pain down her leg and loss of sensory. She had 2 spinal injections that made it so she did not need surgery and it was gone 20 years. Its back now. She wants to work on [employer] to help support that area. She has had 2 injections and that hasn't help up much. It started a few months ago. 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 [facility] cannot sit or stand for an extended period. She walks at least 10 miles a day total split up throughout trails and concrete. She has been using 1lb wts on her hands. She is not back at the gym, but doing small wts w/shoulder. Pt did have pain down R leg until injection. Pain is more on R>L . She does have history of L broken shoulder that is partially recovered. Has Clay shoes recommended by yard jockey. Pt is avoiding her typical exercises as she is worried they might make soemthing worse. Pt used to be able to do SLS on blue and black side bosu and touch toes prior to fal that broke shoulder. After she fell, it dec her confidence. Prior Treatments and Tests injections IMPRESSION: 1. Multilevel degenerative disc disease as detailed above . 2. Moderate central canal stenosis at L4-5. Treatment Goals Patient/Caregiver Goals Be able to walk and carry full amount of groceries to/from store, be back at the gym working out, improve balance PT-OP-C Subjective Start: 05/23/23 15:45 Freq: Status: Active Protocol: Document 07/04/23 08:21 SP (Rec: 07/04/23 09:07 SP [id number]) OP-PT Subjective Patient Comments Patient Comments Pt report was sore after last tx over front anterior B hips. She reports when walks outside realized always walks a hill that turns to L so RLE always having to elevate step more than R. PT-OP-D Balance Start: 05/23/23 15:45 Freq: Status: Active Protocol: Document 06/21/23 07:30 [facility] (Rec: 06/21/23 08:18 [facility] [id number]) Balance Tests Single Limb Standing Single Limb- Right 13 sec slight lat shear Single Limb- Left >30 sec slight lat shear PT-OP-F Manual Assessment Start: 05/23/23 15:45 Freq: Status: Active Protocol: Document 06/21/23 07:30 [facility] (Rec: 06/21/23 08:18 [facility] [id number]) Manual Assessments Soft Tissue Assessment Soft Tissue Mobility Assessment R SI feels bruised. glute tenderness -feels like pins and needles Joint Mobility Assessment Joint Mobility Assessment pain in back w/passive hip ext PT-OP-G Mobility & Gait Start: 05/23/23 15:45 Freq: Status: Active Protocol: Document 06/21/23 07:30 [facility] (Rec: 06/21/23 08:18 [facility] [id number]) OP Gait Assessment Comments Gait Comments dec push off, dec scap movement, dec stance time RLE, dec push off overall, PT-OP-J Posture/Palpation/Skin Start: 05/23/23 15:45 Freq: Status: Active Protocol: Document 06/21/23 07:30 [facility] (Rec: 06/21/23 08:18 [facility] [id number]) Posture Evaluation Mili Postural Classification System Mili Postural Classifications Posterior/Posterior Vertebral Compression Test 0 Lumbar Protective Mechanism Left AP 0 Lumbar Protective Mechanism Right AP 0 Lumbar Protective Mechanism Left PA 1 Lumbar Protective Mechanism Right PA 0 PT-OP-K Range of Motion Start: 05/23/23 15:45 Freq: Status: Active Protocol: Document 06/21/23 07:30 [facility] (Rec: 06/21/23 08:18 [facility] [id number]) Lumbar Spine Range of Motion Lumbar Spine Active Percentage Flexion 20 Extension 40 Rotation Left 40 Rotation Right 50 Lateral Flexion Left 50 Lateral Flexion Right 50 Comments pain ext & L lat flex PT-OP-L Special Tests Start: 05/23/23 15:45 Freq: Status: Active Protocol: Document 06/21/23 07:30 [facility] (Rec: 06/21/23 08:18 [facility] [id number]) Special Tests Lumbar Spine Special Tests Slump Test Results dural tension L PT-OP-M Strength Start: 05/23/23 15:45 Freq: Status: Active Protocol: Document 06/21/23 07:30 [facility] (Rec: 06/21/23 08:18 [facility] [id number]) Hip Strength Hip Manual Muscle Testing Right Flexion (L2) 3 Fair Extension (S1) 3 Fair Abduction 4 Good Adduction 5 Normal External Rotation 3+ Fair+ Internal Rotation 3+ Fair+ Comments pain w/flex; HS cramp Left Flexion (L2) 3 Fair Extension (S1) 3+ Fair+ Abduction 5 Normal Adduction 3 Fair External Rotation 4- Good- Internal Rotation 4 Good Comments pain w/add Knee Strength Knee Manual Muscle Testing Right Flexion (S2) 4+ Good+ Extension (L3) 5 Normal Left Flexion (S2) 4+ Good+ Extension (L3) 5 Normal Ankle/Foot Strength Ankle and Foot Manual Muscle Testing Right Dorsiflexion (L4) 5 Normal Plantarflexion (S1) 5 Normal Inversion 5 Normal Eversion (S1) 5 Normal Left Dorsiflexion (L4) 5 Normal Plantarflexion (S1) 5 Normal Inversion 5 Normal Eversion (S1) 5 Normal Comments 20 heel raises B PT-OP-Q Treatments Start: 05/23/23 15:45 Freq: Status: Active Protocol: Document 07/04/23 08:21 SP (Rec: 07/04/23 09:07 SP [id number]) Therapeutic Exercises Supine Exercises pelvic tilt, mini initial bridge Supine Exercise Name segmental mini bridge, L5-3 flexion eccentric Comments cued tailbone tuck, very slow for lower lumbar mob- good response LTR Supine Exercise Name segmental control Side bilateral Reps/Minutes 5 reps Manual Therapy Treatment Soft Tissue Mobilization back Body Location R parspinals, colon & QL Mobilization Type Rolling,Sustained Pressure Intensity/Depth Moderate Body Position Sidelying Comments w/ant dep and post dep hip flexor Body Location L, inguinal lig, psoas Mobilization Type Sustained Pressure Comments w/hip IR/ER & heel slides glutes Body Location R Mobilization Type Sustained Pressure Intensity/Depth Moderate Body Position Prone Comments w/hip IR/ER Joint Mobilizations hip Joint B hip add and abd FM s/l Comments manual facilitation at end range PT-OP-R Modalities Start: 05/23/23 15:45 Freq: Status: Active Protocol: Document 07/02/23 08:46 [facility] (Rec: 07/02/23 10:57 [facility] [id number]) Hot Pack/Cold Pack Treatment Cold Pack Location LB Patient Position Hooklying Treatment Duration (minutes) 10 PT-OP-T Assessment and Plan Start: 05/23/23 15:45 Freq: Status: Active Protocol: Document 07/04/23 08:21 SP (Rec: 07/04/23 09:07 SP [id number]) Physical Therapy Assessment Goals posture Manufacturing Assistant Goal (LTG) Pt will show improved posture by scoring at least 3/5 on VCT LTG Duration 09/13/23 balance Manufacturing Assistant Goal (LTG) Pt will be able to do SLS on RLE 30 sec w/o lat hip shear or deviations. LTG Duration 09/03/23 strength Short Term Goal (STG) Pt will be indep w/HEP STG Duration 08/03/23 Senior Care Goal (LTG) Pt will score at least 3/5 on all planes LPM and 5/5 on BLE strength in all planes to show iproved stability and dec instances of pain. LTG Duration 09/13/23 activities Short Term Goal (STG) Pt will be able to return to the gym to work out without inc pain greater than 2 points . STG Duration 08/03/23 Senior Care Goal (LTG) Pt will be able to carry her full load to/from the grocery store w/o pain greater than 2/ 10 after LTG Duration 09/13/23 Assessment Summary Assessment Pt reports improved decrease tension in anterior L hip and R posterolateral hip post manual. Extra time spent on education of slow segmental mobility through LS and hip rotation glide during LTR and pelvic tilt/ mini bridge with reports it takes alot of concentration to move slow and can feel a difference in smaller segmental lumbar movement and not like full low back working together. Physical Therapy Plan Frequency and Duration Frequency of Treatment 1-2x/wk Duration of treatment (weeks) 12 Plan of Care Start Date 06/21/23 Plan of Care End Date 09/13/23 Therapeutic Interventions Therapeutic Interventions Balance Training,Gait Training ,Home Exercise Program,Joint Mobilizations,Manual Therapy, Neuromuscular Re-education, Orthotic/Prosthetic Management ,Patient/Caregiver Education, Self-Care/Home Management,Soft Tissue Mobilization,Taping, Therapeutic Activities, Therapeutic Exercises Modalities Cold Pack/Ice Massage,Electric Stimulation,Hot Packs, Infrared Therapy,Traction- Mechanical,Ultrasound Next Visit Focus/Plan Next Note Type Treatment Note Next Visit Plan Continue slow small range segmantal LS mobility post manual. Trial multifidi possible quadruped before give hip hikes, look at R inguinal ligament/iliacus, pelvic patterns, work on ext; advance core exercises/start working on hip hinge training and squats
--- NOTE | 2023-07-18 15:49 | PT.OTN ---
Addendum entered and electronically signed by Shawnee Bates, PT 07/18/23 17:28: PT direct supervision and direction to PT student. Original Note: Current Diagnoses Radiculopathy, lumbar region (07/18/23) Difficulty in walking, not elsewhere classified (07/18/23) Abnormal posture (07/18/23) Weakness (07/18/23) Physical Therapy Treatment Note PT-OP-A Visit Information Start: 05/23/23 15:45 Freq: Status: Active Protocol: Document 07/18/23 08:17 BS (Rec: 07/18/23 11:06 BS [id number]) Out-Patient Physical Therapy Visit Information Visit Information Visit Type Treatment Note Visit Note 02/10 Visit Start Time 08:16 Visit Stop Time 09:11 Total Visit Minutes 55 Visit Number 6 Number of DRAPERY ROD ASSEMBLER Visits 0 PT-OP-B Current Condition Start: 05/23/23 15:45 Freq: Status: Active Protocol: Document 06/21/23 07:30 [facility] (Rec: 06/21/23 08:18 [facility] [id number]) Current Condition History of Current Condition Current Complaints 25 years ago History of Current Condition Pt reports 25 years ago she woke up screaming and ended up in the hospital and in a w/c and L4-5 desicated disc. She had back pain and pain down her leg and loss of sensory. She had 2 spinal injections that made it so she did not need surgery and it was gone 20 years. Its back now. She wants to work on core to help support that area. She has had 2 injections and that hasn't help up much. It started a few months ago. 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 h cannot sit or stand for an extended period. She walks at least 10 miles a day total split up throughout trails and concrete. She has been using 1lb wts on her hands. She is not back at the gym, but doing small wts w/shoulder. Pt did have pain down R leg until injection. Pain is more on R>L . She does have history of L broken shoulder that is partially recovered. Has Clay shoes recommended by pharmacist assistant. Pt is avoiding her typical exercises as she is worried they might make soemthing worse. Pt used to be able to do SLS on blue and black side bosu and touch toes prior to fal that broke shoulder. After she fell, it dec her confidence. Prior Treatments and Tests injections IMPRESSION: 1. Multilevel degenerative disc disease as detailed above . 2. Moderate central canal stenosis at L4-5. Treatment Goals Patient/Caregiver Goals Be able to walk and carry full amount of groceries to/from store, be back at the gym working out, improve balance PT-OP-C Subjective Start: 05/23/23 15:45 Freq: Status: Active Protocol: Document 07/18/23 08:17 BS (Rec: 07/18/23 11:06 BS [id number]) OP-PT Subjective Patient Comments Patient Comments Pt went on a two week trip to the [facility] to see son and help him move from [place] to [place] . Back and hips have been hurting and not doing well from the trip. PT-OP-D Balance Start: 05/23/23 15:45 Freq: Status: Active Protocol: Document 06/21/23 07:30 [facility] (Rec: 06/21/23 08:18 [facility] [id number]) Balance Tests Single Limb Standing Single Limb- Right 13 sec slight lat shear Single Limb- Left >30 sec slight lat shear PT-OP-F Manual Assessment Start: 05/23/23 15:45 Freq: Status: Active Protocol: Document 06/21/23 07:30 [facility] (Rec: 06/21/23 08:18 [facility] [id number]) Manual Assessments Soft Tissue Assessment Soft Tissue Mobility Assessment R SI feels bruised. glute tenderness -feels like pins and needles Joint Mobility Assessment Joint Mobility Assessment pain in back w/passive hip ext PT-OP-G Mobility & Gait Start: 05/23/23 15:45 Freq: Status: Active Protocol: Document 06/21/23 07:30 [facility] (Rec: 06/21/23 08:18 [facility] [id number]) OP Gait Assessment Comments Gait Comments dec push off, dec scap movement, dec stance time RLE, dec push off overall, PT-OP-J Posture/Palpation/Skin Start: 05/23/23 15:45 Freq: Status: Active Protocol: Document 06/21/23 07:30 [facility] (Rec: 06/21/23 08:18 [facility] [id number]) Posture Evaluation Mili Postural Classification System Mili Postural Classifications Posterior/Posterior Vertebral Compression Test 0 Lumbar Protective Mechanism Left AP 0 Lumbar Protective Mechanism Right AP 0 Lumbar Protective Mechanism Left PA 1 Lumbar Protective Mechanism Right PA 0 PT-OP-K Range of Motion Start: 05/23/23 15:45 Freq: Status: Active Protocol: Document 06/21/23 07:30 [facility] (Rec: 06/21/23 08:18 [facility] [id number]) Lumbar Spine Range of Motion Lumbar Spine Active Percentage Flexion 20 Extension 40 Rotation Left 40 Rotation Right 50 Lateral Flexion Left 50 Lateral Flexion Right 50 Comments pain ext & L lat flex PT-OP-L Special Tests Start: 05/23/23 15:45 Freq: Status: Active Protocol: Document 06/21/23 07:30 [facility] (Rec: 06/21/23 08:18 [facility] [id number]) Special Tests Lumbar Spine Special Tests Slump Test Results dural tension L PT-OP-M Strength Start: 05/23/23 15:45 Freq: Status: Active Protocol: Document 06/21/23 07:30 [facility] (Rec: 06/21/23 08:18 [facility] [id number]) Hip Strength Hip Manual Muscle Testing Right Flexion (L2) 3 Fair Extension (S1) 3 Fair Abduction 4 Good Adduction 5 Normal External Rotation 3+ Fair+ Internal Rotation 3+ Fair+ Comments pain w/flex; HS cramp Left Flexion (L2) 3 Fair Extension (S1) 3+ Fair+ Abduction 5 Normal Adduction 3 Fair External Rotation 4- Good- Internal Rotation 4 Good Comments pain w/add Knee Strength Knee Manual Muscle Testing Right Flexion (S2) 4+ Good+ Extension (L3) 5 Normal Left Flexion (S2) 4+ Good+ Extension (L3) 5 Normal Ankle/Foot Strength Ankle and Foot Manual Muscle Testing Right Dorsiflexion (L4) 5 Normal Plantarflexion (S1) 5 Normal Inversion 5 Normal Eversion (S1) 5 Normal Left Dorsiflexion (L4) 5 Normal Plantarflexion (S1) 5 Normal Inversion 5 Normal Eversion (S1) 5 Normal Comments 20 heel raises B PT-OP-Q Treatments Start: 05/23/23 15:45 Freq: Status: Active Protocol: Document 07/18/23 08:17 BS (Rec: 07/18/23 11:06 BS [id number]) Therapeutic Exercises Standing Exercises pallof press Side bilateral Resistance peach band Reps/Minutes x10 ea Comments cues to keep shoulders squared Hip hikes Side bilateral Reps/Minutes x10 ea Comments cues to move slow and controlled Manual Therapy Treatment Soft Tissue Mobilization back Comments R multifidus & paraspinal STM Joint Mobilizations innominate Comments 1. L IR FM 2. R caudal glide FM sacrum Comments 1. R inf FM w/ B knee flex 2. PA FM w/LTR PT-OP-R Modalities Start: 05/23/23 15:45 Freq: Status: Active Protocol: Document 07/18/23 08:17 BS (Rec: 07/18/23 11:06 BS [id number]) Hot Pack/Cold Pack Treatment Cold Pack Location LB Patient Position Hooklying Treatment Duration (minutes) 10 PT-OP-T Assessment and Plan Start: 05/23/23 15:45 Freq: Status: Active Protocol: Document 07/18/23 08:17 BS (Rec: 07/18/23 11:06 BS [id number]) Physical Therapy Assessment Goals posture Right Of Way Appraiser Goal (LTG) Pt will show improved posture by scoring at least 3/5 on VCT LTG Duration 09/13/[address]raiser Goal (LTG) Pt will be able to do SLS on RLE 30 sec w/o lat hip shear or deviations. LTG Duration 09/03/23 strength Short Term Goal (STG) Pt will be indep w/HEP STG Duration 08/03/[address]raiser Goal (LTG) Pt will score at least 3/5 on all planes LPM and 5/5 on BLE strength in all planes to show iproved stability and dec instances of pain. LTG Duration 09/13/23 activities Short Term Goal (STG) Pt will be able to return to the gym to work out without inc pain greater than 2 points . STG Duration 08/03/[address] Goal (LTG) Pt will be able to carry her full load to/from the grocery store w/o pain greater than 2/ 10 after LTG Duration 09/13/23 Assessment Summary Assessment Pt report dec pain and rension through sacrum post manual. Pt L hip IR was sig limited and improved with innominate mob, but still felt blocked through joint/ant hip. Pt R iliac crest was elevated at start and improved post manual . Pt completed hip hikes and paloff press to work on re- education through new range and position. Physical Therapy Plan Frequency and Duration Frequency of Treatment 1-2x/wk Duration of treatment (weeks) 12 Plan of Care Start Date 06/21/23 Plan of Care End Date 09/13/23 Next Visit Focus/Plan Next Note Type Treatment Note Next Visit Plan Continue slow small range segmantal LS mobility post manual. Trial quadruped therex , look at R inguinal ligament/ iliacus, pelvic patterns, work on ext; advance core exercises/start working on hip hinge training and squats
--- NOTE | 2023-07-23 08:15 | PT.OTN ---
Current Diagnoses Radiculopathy, lumbar region (07/23/23) Difficulty in walking, not elsewhere classified (07/23/23) Abnormal posture (07/23/23) Weakness (07/23/23) Physical Therapy Treatment Note PT-OP-A Visit Information Start: 05/23/23 15:45 Freq: Status: Active Protocol: Document 07/23/23 07:31 SP (Rec: 07/23/23 08:17 SP [id number]) Out-Patient Physical Therapy Visit Information Visit Information Visit Type Treatment Note Visit Note 03/12 Visit Start Time 07:31 Visit Stop Time 08:15 Total Visit Minutes 44 Visit Number 7 Number of [facility]AR EASTERN ARCHAEOLOGY LECTURER Visits 1 PT-OP-B Current Condition Start: 05/23/23 15:45 Freq: Status: Active Protocol: Document 06/21/23 07:30 LR (Rec: 06/21/23 08:18 [facility] [id number]) Current Condition History of Current Condition Current Complaints 25 years ago History of Current Condition Pt reports 25 years ago she woke up screaming and ended up in the hospital and in a w/c and L4-5 desicated disc. She had back pain and pain down her leg and loss of sensory. She had 2 spinal injections that made it so she did not need surgery and it was gone 20 years. Its back now. She wants to work on [employer] to help support that area. She has had 2 injections and that hasn't help up much. It started a few months ago. 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 [facility] cannot sit or stand for an extended period. She walks at least 10 miles a day total split up throughout trails and concrete. She has been using 1lb wts on her hands. She is not back at the gym, but doing small wts w/shoulder. Pt did have pain down R leg until injection. Pain is more on R>L . She does have history of L broken shoulder that is partially recovered. Has Clay shoes recommended by industrial nurse. Pt is avoiding her typical exercises as she is worried they might make soemthing worse. Pt used to be able to do SLS on blue and black side bosu and touch toes prior to fal that broke shoulder. After she fell, it dec her confidence. Prior Treatments and Tests injections IMPRESSION: 1. Multilevel degenerative disc disease as detailed above . 2. Moderate central canal stenosis at L4-5. Treatment Goals Patient/Caregiver Goals Be able to walk and carry full amount of groceries to/from store, be back at the gym working out, improve balance PT-OP-C Subjective Start: 05/23/23 15:45 Freq: Status: Active Protocol: Document 07/23/23 07:31 SP (Rec: 07/23/23 08:17 SP [id number]) OP-PT Subjective Patient Comments Patient Comments Pt reports was really sore after last tx. Still across LB . She states compliant with HEP. PT-OP-D Balance Start: 05/23/23 15:45 Freq: Status: Active Protocol: Document 06/21/23 07:30 [facility] (Rec: 06/21/23 08:18 [facility] [id number]) Balance Tests Single Limb Standing Single Limb- Right 13 sec slight lat shear Single Limb- Left >30 sec slight lat shear PT-OP-F Manual Assessment Start: 05/23/23 15:45 Freq: Status: Active Protocol: Document 06/21/23 07:30 [facility] (Rec: 06/21/23 08:18 [facility] [id number]) Manual Assessments Soft Tissue Assessment Soft Tissue Mobility Assessment R SI feels bruised. glute tenderness -feels like pins and needles Joint Mobility Assessment Joint Mobility Assessment pain in back w/passive hip ext PT-OP-G Mobility & Gait Start: 05/23/23 15:45 Freq: Status: Active Protocol: Document 06/21/23 07:30 [facility] (Rec: 06/21/23 08:18 [facility] [id number]) OP Gait Assessment Comments Gait Comments dec push off, dec scap movement, dec stance time RLE, dec push off overall, PT-OP-J Posture/Palpation/Skin Start: 05/23/23 15:45 Freq: Status: Active Protocol: Document 06/21/23 07:30 [facility] (Rec: 06/21/23 08:18 [facility] [id number]) Posture Evaluation Mili Postural Classification System Mili Postural Classifications Posterior/Posterior Vertebral Compression Test 0 Lumbar Protective Mechanism Left AP 0 Lumbar Protective Mechanism Right AP 0 Lumbar Protective Mechanism Left PA 1 Lumbar Protective Mechanism Right PA 0 PT-OP-K Range of Motion Start: 05/23/23 15:45 Freq: Status: Active Protocol: Document 06/21/23 07:30 [facility] (Rec: 06/21/23 08:18 [facility] [id number]) Lumbar Spine Range of Motion Lumbar Spine Active Percentage Flexion 20 Extension 40 Rotation Left 40 Rotation Right 50 Lateral Flexion Left 50 Lateral Flexion Right 50 Comments pain ext & L lat flex PT-OP-L Special Tests Start: 05/23/23 15:45 Freq: Status: Active Protocol: Document 06/21/23 07:30 [facility] (Rec: 06/21/23 08:18 [facility] [id number]) Special Tests Lumbar Spine Special Tests Slump Test Results dural tension L PT-OP-M Strength Start: 05/23/23 15:45 Freq: Status: Active Protocol: Document 06/21/23 07:30 [facility] (Rec: 06/21/23 08:18 [facility] [id number]) Hip Strength Hip Manual Muscle Testing Right Flexion (L2) 3 Fair Extension (S1) 3 Fair Abduction 4 Good Adduction 5 Normal External Rotation 3+ Fair+ Internal Rotation 3+ Fair+ Comments pain w/flex; HS cramp Left Flexion (L2) 3 Fair Extension (S1) 3+ Fair+ Abduction 5 Normal Adduction 3 Fair External Rotation 4- Good- Internal Rotation 4 Good Comments pain w/add Knee Strength Knee Manual Muscle Testing Right Flexion (S2) 4+ Good+ Extension (L3) 5 Normal Left Flexion (S2) 4+ Good+ Extension (L3) 5 Normal Ankle/Foot Strength Ankle and Foot Manual Muscle Testing Right Dorsiflexion (L4) 5 Normal Plantarflexion (S1) 5 Normal Inversion 5 Normal Eversion (S1) 5 Normal Left Dorsiflexion (L4) 5 Normal Plantarflexion (S1) 5 Normal Inversion 5 Normal Eversion (S1) 5 Normal Comments 20 heel raises B PT-OP-Q Treatments Start: 05/23/23 15:45 Freq: Status: Active Protocol: Document 07/23/23 07:31 SP (Rec: 07/23/23 08:17 SP [id number]) Therapeutic Exercises Supine Exercises Porter Stretch Supine Exercise Name trialed end tx Side left Equipment Used R hip flexion/pt held KTC Reps/Minutes 60SH Comments good feedback stretc pelvic alignment ther ex Supine Exercise Name R hip abd and extension isometric Side right Resistance therapist manual resistance Reps/Minutes 5 SH x3 reps each Comments good feedback response painfree pelvic tilt, mini initial bridge Supine Exercise Name segmental mini bridge, L5-3 flexion eccentric Comments cued tailbone tuck, very slow for lower lumbar mob- good response LTR Supine Exercise Name segmental control Side bilateral Reps/Minutes 5 reps Standing Exercises pallof press Side bilateral Resistance double peach band Reps/Minutes x10 ea Comments cued shld level/squared, soft knees and neutral LS Hip hikes Side bilateral Equipment Used bottom step, contact rail Reps/Minutes x10 ea Comments cues to move slow and controlled Manual Therapy Treatment Soft Tissue Mobilization back Comments R multifidus & paraspinal STM hip flexor Body Location L, inguinal lig, psoas, TFL Mobilization Type Sustained Pressure Comments TFL w/hip IR/ER glutes Body Location R Mobilization Type Sustained Pressure Intensity/Depth Moderate Body Position Prone Comments w/hip IR/ER FM AROM Joint Mobilizations innominate Comments R ilium outflare and anterior tilt correction- muscle energy hip abduction and extension isometric. PT-OP-R Modalities Start: 05/23/23 15:45 Freq: Status: Active Protocol: Document 07/18/23 08:17 BS (Rec: 07/18/23 11:06 BS [id number]) Hot Pack/Cold Pack Treatment Cold Pack Location LB Patient Position Hooklying Treatment Duration (minutes) 10 PT-OP-T Assessment and Plan Start: 05/23/23 15:45 Freq: Status: Active Protocol: Document 07/23/23 07:31 SP (Rec: 07/23/23 08:17 SP [id number]) Physical Therapy Assessment Goals posture Intermediate Goal (LTG) Pt will show improved posture by scoring at least 3/5 on VCT LTG Duration 09/13/23 balance Intermediate Goal (LTG) Pt will be able to do SLS on RLE 30 sec w/o lat hip shear or deviations. LTG Duration 09/03/23 strength Short Term Goal (STG) Pt will be indep w/HEP STG Duration 08/03/23 Greeting Card Writer Goal (LTG) Pt will score at least 3/5 on all planes LPM and 5/5 on BLE strength in all planes to show iproved stability and dec instances of pain. LTG Duration 09/13/23 activities Short Term Goal (STG) Pt will be able to return to the gym to work out without inc pain greater than 2 points . STG Duration 08/03/23 Greeting Card Writer Goal (LTG) Pt will be able to carry her full load to/from the grocery store w/o pain greater than 2/ 10 after LTG Duration 09/13/23 Assessment Summary Assessment Pt reports dec pain R posterior SI area and anterior L hip post manual and stretching. GOod feedback anterior L hip flexor stretch end tx. Physical Therapy Plan Frequency and Duration Frequency of Treatment 1-2x/wk Duration of treatment (weeks) 12 Plan of Care Start Date 06/21/23 Plan of Care End Date 09/13/23 Therapeutic Interventions Therapeutic Interventions Balance Training,Gait Training ,Home Exercise Program,Joint Mobilizations,Manual Therapy, Neuromuscular Re-education, Orthotic/Prosthetic Management ,Patient/Caregiver Education, Self-Care/Home Management,Soft Tissue Mobilization,Taping, Therapeutic Activities, Therapeutic Exercises Modalities Cold Pack/Ice Massage,Electric Stimulation,Hot Packs, Infrared Therapy,Traction- Mechanical,Ultrasound Next Visit Focus/Plan Next Note Type Treatment Note Next Visit Plan Continue slow small range segmantal LS mobility post manual. Trial quadruped therex , look at R inguinal ligament/ iliacus, pelvic patterns, work on ext; advance core exercises/start working on hip hinge training and squats
--- NOTE | 2023-07-30 11:49 | PT.OTN ---
Current Diagnoses Radiculopathy, lumbar region (07/30/23) Difficulty in walking, not elsewhere classified (07/30/23) Abnormal posture (07/30/23) Weakness (07/30/23) Physical Therapy Treatment Note PT-OP-A Visit Information Start: 05/23/23 15:45 Freq: Status: Active Protocol: Document 07/30/23 08:13 [facility] (Rec: 07/30/23 11:48 [facility] [id number]) Out-Patient Physical Therapy Visit Information Visit Information Visit Type Treatment Note Visit Note 04/12 Visit Start Time 08:18 Visit Stop Time 09:05 Total Visit Minutes 47 Visit Number 8 Number of ORTHOPEDIC PHYSICAL THERAPIST Visits 0 PT-OP-B Current Condition Start: 05/23/23 15:45 Freq: Status: Active Protocol: Document 06/21/23 07:30 [facility] (Rec: 06/21/23 08:18 [facility] [id number]) Current Condition History of Current Condition Current Complaints 25 years ago History of Current Condition Pt reports 25 years ago she woke up screaming and ended up in the hospital and in a w/c and L4-5 desicated disc. She had back pain and pain down her leg and loss of sensory. She had 2 spinal injections that made it so she did not need surgery and it was gone 20 years. Its back now. She wants to work on [employer] to help support that area. She has had 2 injections and that hasn't help up much. It started a few months ago. 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 [facility] cannot sit or stand for an extended period. She walks at least 10 miles a day total split up throughout trails and concrete. She has been using 1lb wts on her hands. She is not back at the gym, but doing small wts w/shoulder. Pt did have pain down R leg until injection. Pain is more on R>L . She does have history of L broken shoulder that is partially recovered. Has Clay shoes recommended by textile converter. Pt is avoiding her typical exercises as she is worried they might make soemthing worse. Pt used to be able to do SLS on blue and black side bosu and touch toes prior to fal that broke shoulder. After she fell, it dec her confidence. Prior Treatments and Tests injections IMPRESSION: 1. Multilevel degenerative disc disease as detailed above . 2. Moderate central canal stenosis at L4-5. Treatment Goals Patient/Caregiver Goals Be able to walk and carry full amount of groceries to/from store, be back at the gym working out, improve balance PT-OP-C Subjective Start: 05/23/23 15:45 Freq: Status: Active Protocol: Document 07/30/23 08:13 [facility] (Rec: 07/30/23 11:48 [facility] [id number]) OP-PT Subjective Patient Comments Patient Comments Pt reports she was in pain after last session. She did her exercises though and that helped. L hip flexor feels a little bruised today. PT-OP-D Balance Start: 05/23/23 15:45 Freq: Status: Active Protocol: Document 06/21/23 07:30 [facility] (Rec: 06/21/23 08:18 [facility] [id number]) Balance Tests Single Limb Standing Single Limb- Right 13 sec slight lat shear Single Limb- Left >30 sec slight lat shear PT-OP-F Manual Assessment Start: 05/23/23 15:45 Freq: Status: Active Protocol: Document 06/21/23 07:30 [facility] (Rec: 06/21/23 08:18 [facility] [id number]) Manual Assessments Soft Tissue Assessment Soft Tissue Mobility Assessment R SI feels bruised. glute tenderness -feels like pins and needles Joint Mobility Assessment Joint Mobility Assessment pain in back w/passive hip ext PT-OP-G Mobility & Gait Start: 05/23/23 15:45 Freq: Status: Active Protocol: Document 06/21/23 07:30 [facility] (Rec: 06/21/23 08:18 [facility] [id number]) OP Gait Assessment Comments Gait Comments dec push off, dec scap movement, dec stance time RLE, dec push off overall, PT-OP-J Posture/Palpation/Skin Start: 05/23/23 15:45 Freq: Status: Active Protocol: Document 06/21/23 07:30 [facility] (Rec: 06/21/23 08:18 [facility] [id number]) Posture Evaluation Mili Postural Classification System Mili Postural Classifications Posterior/Posterior Vertebral Compression Test 0 Lumbar Protective Mechanism Left AP 0 Lumbar Protective Mechanism Right AP 0 Lumbar Protective Mechanism Left PA 1 Lumbar Protective Mechanism Right PA 0 PT-OP-K Range of Motion Start: 05/23/23 15:45 Freq: Status: Active Protocol: Document 06/21/23 07:30 [facility] (Rec: 06/21/23 08:18 [facility] [id number]) Lumbar Spine Range of Motion Lumbar Spine Active Percentage Flexion 20 Extension 40 Rotation Left 40 Rotation Right 50 Lateral Flexion Left 50 Lateral Flexion Right 50 Comments pain ext & L lat flex PT-OP-L Special Tests Start: 05/23/23 15:45 Freq: Status: Active Protocol: Document 06/21/23 07:30 [facility] (Rec: 06/21/23 08:18 [facility] [id number]) Special Tests Lumbar Spine Special Tests Slump Test Results dural tension L PT-OP-M Strength Start: 05/23/23 15:45 Freq: Status: Active Protocol: Document 06/21/23 07:30 [facility] (Rec: 06/21/23 08:18 [facility] [id number]) Hip Strength Hip Manual Muscle Testing Right Flexion (L2) 3 Fair Extension (S1) 3 Fair Abduction 4 Good Adduction 5 Normal External Rotation 3+ Fair+ Internal Rotation 3+ Fair+ Comments pain w/flex; HS cramp Left Flexion (L2) 3 Fair Extension (S1) 3+ Fair+ Abduction 5 Normal Adduction 3 Fair External Rotation 4- Good- Internal Rotation 4 Good Comments pain w/add Knee Strength Knee Manual Muscle Testing Right Flexion (S2) 4+ Good+ Extension (L3) 5 Normal Left Flexion (S2) 4+ Good+ Extension (L3) 5 Normal Ankle/Foot Strength Ankle and Foot Manual Muscle Testing Right Dorsiflexion (L4) 5 Normal Plantarflexion (S1) 5 Normal Inversion 5 Normal Eversion (S1) 5 Normal Left Dorsiflexion (L4) 5 Normal Plantarflexion (S1) 5 Normal Inversion 5 Normal Eversion (S1) 5 Normal Comments 20 heel raises B PT-OP-Q Treatments Start: 05/23/23 15:45 Freq: Status: Active Protocol: Document 07/30/23 08:13 [facility] (Rec: 07/30/23 11:48 [facility] [id number]) Therapeutic Exercises Standing Exercises Hip hikes Side bilateral Equipment Used bottom step, contact rail Reps/Minutes x10 ea Comments cues to move slow and controlled & focus on more post dep w/standing leg Manual Therapy Treatment Soft Tissue Mobilization thigh Body Location B quad FM Mobilization Type Rolling,Sustained Pressure Intensity/Depth Moderate Body Position Prone Comments w/knee flex in slight hip ext Joint Mobilizations innominate Comments L abd FM; R add, B ext FM manual facilitation at end range hip Comments s/l R add FM; R IR free the ball hooklying FM PT-OP-R Modalities Start: 05/23/23 15:45 Freq: Status: Active Protocol: Document 07/18/23 08:17 BS (Rec: 07/18/23 11:06 BS [id number]) Hot Pack/Cold Pack Treatment Cold Pack Location LB Patient Position Hooklying Treatment Duration (minutes) 10 PT-OP-T Assessment and Plan Start: 05/23/23 15:45 Freq: Status: Active Protocol: Document 07/30/23 08:13 [facility] (Rec: 07/30/23 11:48 [facility] [id number]) Physical Therapy Assessment Goals posture Usp Goal (LTG) Pt will show improved posture by scoring at least 3/5 on VCT LTG Duration 09/13/23 balance Safety Companion Goal (LTG) Pt will be able to do SLS on RLE 30 sec w/o lat hip shear or deviations. LTG Duration 09/03/23 strength Short Term Goal (STG) Pt will be indep w/HEP STG Duration 08/03/23 Safety Companion Goal (LTG) Pt will score at least 3/5 on all planes LPM and 5/5 on BLE strength in all planes to show iproved stability and dec instances of pain. LTG Duration 09/13/23 activities Short Term Goal (STG) Pt will be able to return to the gym to work out without inc pain greater than 2 points . STG Duration 08/03/23 Usp Goal (LTG) Pt will be able to carry her full load to/from the grocery store w/o pain greater than 2/ 10 after LTG Duration 09/13/23 Assessment Summary Assessment Pt did well with mobilizations and had improved R add, L abd , and B ext w/manual treatment . She also noted relief during mobilizations. She required cues w/hip hike for appropriate moevement and does show more difficulty w/ standing on L side to get full range. Physical Therapy Plan Frequency and Duration Frequency of Treatment 1-2x/wk Duration of treatment (weeks) 12 Plan of Care Start Date 06/21/23 Plan of Care End Date 09/13/23 Next Visit Focus/Plan Next Note Type Treatment Note Next Visit Plan review hip hike, work on lumbar mobility and PNF pelvis motion
--- NOTE | 2023-08-01 12:18 | PT.OTN ---
Addendum entered and electronically signed by Shawnee Bates, PT 08/02/23 08:46: PT direct supervision and direction to PT student. Original Note: Current Diagnoses Radiculopathy, lumbar region (08/01/23) Difficulty in walking, not elsewhere classified (08/01/23) Abnormal posture (08/01/23) Weakness (08/01/23) Physical Therapy Treatment Note PT-OP-A Visit Information Start: 05/23/23 15:45 Freq: Status: Active Protocol: Document 08/01/23 08:21 BS (Rec: 08/01/23 10:12 BS [id number]) Out-Patient Physical Therapy Visit Information Visit Information Visit Type Treatment Note Visit Note 05/13 Visit Start Time 08:20 Visit Stop Time 09:05 Total Visit Minutes 45 Visit Number 9 Number of HEARING IMPAIRED ITINERANT TEACHER Visits 0 PT-OP-B Current Condition Start: 05/23/23 15:45 Freq: Status: Active Protocol: Document 06/21/23 07:30 [facility] (Rec: 06/21/23 08:18 [facility] [id number]) Current Condition History of Current Condition Current Complaints 25 years ago History of Current Condition Pt reports 25 years ago she woke up screaming and ended up in the hospital and in a w/c and L4-5 desicated disc. She had back pain and pain down her leg and loss of sensory. She had 2 spinal injections that made it so she did not need surgery and it was gone 20 years. Its back now. She wants to work on core to help support that area. She has had 2 injections and that hasn't help up much. It started a few months ago. 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 h cannot sit or stand for an extended period. She walks at least 10 miles a day total split up throughout trails and concrete. She has been using 1lb wts on her hands. She is not back at the gym, but doing small wts w/shoulder. Pt did have pain down R leg until injection. Pain is more on R>L . She does have history of L broken shoulder that is partially recovered. Has Clay shoes recommended by leather sprayer. Pt is avoiding her typical exercises as she is worried they might make soemthing worse. Pt used to be able to do SLS on blue and black side bosu and touch toes prior to fal that broke shoulder. After she fell, it dec her confidence. Prior Treatments and Tests injections IMPRESSION: 1. Multilevel degenerative disc disease as detailed above . 2. Moderate central canal stenosis at L4-5. Treatment Goals Patient/Caregiver Goals Be able to walk and carry full amount of groceries to/from store, be back at the gym working out, improve balance PT-OP-C Subjective Start: 05/23/23 15:45 Freq: Status: Active Protocol: Document 08/01/23 08:21 BS (Rec: 08/01/23 10:12 BS [id number]) OP-PT Subjective Patient Comments Patient Comments Pt reports that for the first time in years her L leg can mirror her R in ER when laying down PT-OP-D Balance Start: 05/23/23 15:45 Freq: Status: Active Protocol: Document 06/21/23 07:30 [facility] (Rec: 06/21/23 08:18 [facility] [id number]) Balance Tests Single Limb Standing Single Limb- Right 13 sec slight lat shear Single Limb- Left >30 sec slight lat shear PT-OP-F Manual Assessment Start: 05/23/23 15:45 Freq: Status: Active Protocol: Document 06/21/23 07:30 [facility] (Rec: 06/21/23 08:18 [facility] [id number]) Manual Assessments Soft Tissue Assessment Soft Tissue Mobility Assessment R SI feels bruised. glute tenderness -feels like pins and needles Joint Mobility Assessment Joint Mobility Assessment pain in back w/passive hip ext PT-OP-G Mobility & Gait Start: 05/23/23 15:45 Freq: Status: Active Protocol: Document 06/21/23 07:30 [facility] (Rec: 06/21/23 08:18 [facility] [id number]) OP Gait Assessment Comments Gait Comments dec push off, dec scap movement, dec stance time RLE, dec push off overall, PT-OP-J Posture/Palpation/Skin Start: 05/23/23 15:45 Freq: Status: Active Protocol: Document 06/21/23 07:30 [facility] (Rec: 06/21/23 08:18 [facility] [id number]) Posture Evaluation Mili Postural Classification System Mili Postural Classifications Posterior/Posterior Vertebral Compression Test 0 Lumbar Protective Mechanism Left AP 0 Lumbar Protective Mechanism Right AP 0 Lumbar Protective Mechanism Left PA 1 Lumbar Protective Mechanism Right PA 0 PT-OP-K Range of Motion Start: 05/23/23 15:45 Freq: Status: Active Protocol: Document 06/21/23 07:30 [facility] (Rec: 06/21/23 08:18 [facility] [id number]) Lumbar Spine Range of Motion Lumbar Spine Active Percentage Flexion 20 Extension 40 Rotation Left 40 Rotation Right 50 Lateral Flexion Left 50 Lateral Flexion Right 50 Comments pain ext & L lat flex PT-OP-L Special Tests Start: 05/23/23 15:45 Freq: Status: Active Protocol: Document 06/21/23 07:30 [facility] (Rec: 06/21/23 08:18 [facility] [id number]) Special Tests Lumbar Spine Special Tests Slump Test Results dural tension L PT-OP-M Strength Start: 05/23/23 15:45 Freq: Status: Active Protocol: Document 06/21/23 07:30 [facility] (Rec: 06/21/23 08:18 [facility] [id number]) Hip Strength Hip Manual Muscle Testing Right Flexion (L2) 3 Fair Extension (S1) 3 Fair Abduction 4 Good Adduction 5 Normal External Rotation 3+ Fair+ Internal Rotation 3+ Fair+ Comments pain w/flex; HS cramp Left Flexion (L2) 3 Fair Extension (S1) 3+ Fair+ Abduction 5 Normal Adduction 3 Fair External Rotation 4- Good- Internal Rotation 4 Good Comments pain w/add Knee Strength Knee Manual Muscle Testing Right Flexion (S2) 4+ Good+ Extension (L3) 5 Normal Left Flexion (S2) 4+ Good+ Extension (L3) 5 Normal Ankle/Foot Strength Ankle and Foot Manual Muscle Testing Right Dorsiflexion (L4) 5 Normal Plantarflexion (S1) 5 Normal Inversion 5 Normal Eversion (S1) 5 Normal Left Dorsiflexion (L4) 5 Normal Plantarflexion (S1) 5 Normal Inversion 5 Normal Eversion (S1) 5 Normal Comments 20 heel raises B PT-OP-Q Treatments Start: 05/23/23 15:45 Freq: Status: Active Protocol: Document 08/01/23 08:21 BS (Rec: 08/01/23 10:12 BS [id number]) Therapeutic Exercises Standing Exercises Carries Standing Exercise Name 1. farmers carry 2. suitcase carry Side bilateral Resistance 1. 2 7# db 2. 10# DB Reps/Minutes 1. 2x20ft 2. 2x20ft ea Comments / november holds pallof press Side bilateral Resistance peach then orange bands Reps/Minutes 2x10 ea Comments cued shld level/squared, soft knees and neutral LS Hip hikes Side bilateral Equipment Used bottom step, contact rail Reps/Minutes x10 ea Comments cues to move slow and controlled & focus on more post dep w/standing leg Neuro Re-Education Treatment Balance Activities SLS Details Y taps Reps/Duration x12 ea Comments cues for small bend in stance leg and moving slowly foam Details stair taps from blue foam Reps/Duration x12 ea Comments w/ HR PRN Other Activities PNF Comments 1. B pelvic ant elevation prolonged holds w/ facilitation at RLE 2. L pelvic rhythmic stabilization w/ ant elevation PT-OP-R Modalities Start: 05/23/23 15:45 Freq: Status: Active Protocol: Document 07/18/23 08:17 BS (Rec: 07/18/23 11:06 BS [id number]) Hot Pack/Cold Pack Treatment Cold Pack Location LB Patient Position Hooklying Treatment Duration (minutes) 10 PT-OP-T Assessment and Plan Start: 05/23/23 15:45 Freq: Status: Active Protocol: Document 08/01/23 08:21 BS (Rec: 08/01/23 10:12 BS [id number]) Physical Therapy Assessment Goals posture General Merchandise Salesperson Goal (LTG) Pt will show improved posture by scoring at least 3/5 on VCT LTG Duration 09/13/23 balance Long-Term Goal (LTG) Pt will be able to do SLS on RLE 30 sec w/o lat hip shear or deviations. LTG Duration 09/03/23 strength Short Term Goal (STG) Pt will be indep w/HEP STG Duration 08/03/23 General Merchandise Salesperson Goal (LTG) Pt will score at least 3/5 on all planes LPM and 5/5 on BLE strength in all planes to show iproved stability and dec instances of pain. LTG Duration 09/13/23 activities Short Term Goal (STG) Pt will be able to return to the gym to work out without inc pain greater than 2 points . STG Duration 08/03/23 General Merchandise Salesperson Goal (LTG) Pt will be able to carry her full load to/from the grocery store w/o pain greater than 2/ 10 after LTG Duration 09/13/23 Assessment Summary Assessment Pt did well with strength progression today. Pt reported inc challenge during pallof press on L. During suitcase carries pt was challenged well & found DB in R hand harder than L, which is consistent with reports of L core feeling weaker. Pt core initiation improved post manual on L. When facilitating on R pelvic, when pt actively DF a nonvolitional beating appeared in foot. No pain w/ it and quick colus screen was negative. Physical Therapy Plan Frequency and Duration Frequency of Treatment 1-2x/wk Duration of treatment (weeks) 12 Plan of Care Start Date 06/21/23 Plan of Care End Date 09/13/23 Next Visit Focus/Plan Next Note Type Progress Note Next Visit Plan work on lumbar mobility and PNF pelvis motion & facilitation. Continue to progress strength and load unilaterally w/ functional mvmts.
--- NOTE | 2023-08-06 15:43 | PT.OTN ---
Addendum entered and electronically signed by Shawnee Bates, PT 08/06/23 18:05: PT direct supervision and direction to PT student. Original Note: Current Diagnoses Radiculopathy, lumbar region (08/06/23) Difficulty in walking, not elsewhere classified (08/06/23) Abnormal posture (08/06/23) Weakness (08/06/23) Physical Therapy Treatment Note PT-OP-A Visit Information Start: 05/23/23 15:45 Freq: Status: Active Protocol: Document 08/06/23 07:27 BS (Rec: 08/06/23 08:37 BS [id number]) Out-Patient Physical Therapy Visit Information Visit Information Visit Type Progress Note Visit Note 09/12 Visit Start Time 07:31 Visit Stop Time 08:27 Total Visit Minutes 56 Visit Number 10 Number of TECHNOLOGY TRAINING ASSOCIATE Visits 0 PT-OP-B Current Condition Start: 05/23/23 15:45 Freq: Status: Active Protocol: Document 06/21/23 07:30 [facility] (Rec: 06/21/23 08:18 [facility] [id number]) Current Condition History of Current Condition Current Complaints 25 years ago History of Current Condition Pt reports 25 years ago she woke up screaming and ended up in the hospital and in a w/c and L4-5 desicated disc. She had back pain and pain down her leg and loss of sensory. She had 2 spinal injections that made it so she did not need surgery and it was gone 20 years. Its back now. She wants to work on core to help support that area. She has had 2 injections and that hasn't help up much. It started a few months ago. 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 h cannot sit or stand for an extended period. She walks at least 10 miles a day total split up throughout trails and concrete. She has been using 1lb wts on her hands. She is not back at the gym, but doing small wts w/shoulder. Pt did have pain down R leg until injection. Pain is more on R>L . She does have history of L broken shoulder that is partially recovered. Has Clay shoes recommended by terrazzo mechanic helper. Pt is avoiding her typical exercises as she is worried they might make soemthing worse. Pt used to be able to do SLS on blue and black side bosu and touch toes prior to fal that broke shoulder. After she fell, it dec her confidence. Prior Treatments and Tests injections IMPRESSION: 1. Multilevel degenerative disc disease as detailed above . 2. Moderate central canal stenosis at L4-5. Treatment Goals Patient/Caregiver Goals Be able to walk and carry full amount of groceries to/from store, be back at the gym working out, improve balance PT-OP-C Subjective Start: 05/23/23 15:45 Freq: Status: Active Protocol: Document 08/06/23 07:27 BS (Rec: 08/06/23 08:37 BS [id number]) OP-PT Subjective Patient Comments Patient Comments Pt has been feeling better overall. Still has some little pains throughout day but has noticed a big difference since she started coming to PT in pain improvement. PT-OP-D Balance Start: 05/23/23 15:45 Freq: Status: Active Protocol: Document 08/06/23 07:27 BS (Rec: 08/06/23 08:37 BS [id number]) Balance Tests Single Limb Standing Single Limb- Right >30s w/o deviation Single Limb- Left >30 sec slight lat shear PT-OP-F Manual Assessment Start: 05/23/23 15:45 Freq: Status: Active Protocol: Document 06/21/23 07:30 [facility] (Rec: 06/21/23 08:18 [facility] [id number]) Manual Assessments Soft Tissue Assessment Soft Tissue Mobility Assessment R SI feels bruised. glute tenderness -feels like pins and needles Joint Mobility Assessment Joint Mobility Assessment pain in back w/passive hip ext PT-OP-G Mobility & Gait Start: 05/23/23 15:45 Freq: Status: Active Protocol: Document 06/21/23 07:30 [facility] (Rec: 06/21/23 08:18 [facility] [id number]) OP Gait Assessment Comments Gait Comments dec push off, dec scap movement, dec stance time RLE, dec push off overall, PT-OP-J Posture/Palpation/Skin Start: 05/23/23 15:45 Freq: Status: Active Protocol: Document 08/06/23 07:27 [facility] (Rec: 08/06/23 10:54 [facility] [id number]) Posture Evaluation Mili Postural Classification System Vertebral Compression Test 3 Lumbar Protective Mechanism Left AP 1 Lumbar Protective Mechanism Right AP 1 Lumbar Protective Mechanism Left PA 2 Lumbar Protective Mechanism Right PA 2 PT-OP-K Range of Motion Start: 05/23/23 15:45 Freq: Status: Active Protocol: Document 08/06/23 07:27 BS (Rec: 08/06/23 08:37 BS [id number]) Lumbar Spine Range of Motion Lumbar Spine Active Percentage Flexion 80 Extension 80 Rotation Left 60 Rotation Right 60 Lateral Flexion Left 100 Lateral Flexion Right 100 Comments pinch end range ext & pain coming out of R SB PT-OP-L Special Tests Start: 05/23/23 15:45 Freq: Status: Active Protocol: Document 06/21/23 07:30 [facility] (Rec: 06/21/23 08:18 [facility] [id number]) Special Tests Lumbar Spine Special Tests Slump Test Results dural tension L PT-OP-M Strength Start: 05/23/23 15:45 Freq: Status: Active Protocol: Document 08/06/23 07:27 BS (Rec: 08/06/23 08:37 BS [id number]) Hip Strength Hip Manual Muscle Testing Right Flexion (L2) 4 Good Extension (S1) 3+ Fair+ Abduction 4+ Good+ Adduction 5 Normal External Rotation 4- Good- Internal Rotation 4+ Good+ Left Flexion (L2) 4- Good- Extension (S1) 3+ Fair+ Abduction 5 Normal Adduction 4+ Good+ External Rotation 4- Good- Internal Rotation 4+ Good+ Knee Strength Knee Manual Muscle Testing Right Flexion (S2) 5 Normal Extension (L3) 5 Normal Left Flexion (S2) 5 Normal Extension (L3) 5 Normal Ankle/Foot Strength Ankle and Foot Manual Muscle Testing Right Dorsiflexion (L4) 5 Normal Plantarflexion (S1) 5 Normal Inversion 5 Normal Eversion (S1) 5 Normal Left Dorsiflexion (L4) 5 Normal Plantarflexion (S1) 5 Normal Inversion 5 Normal Eversion (S1) 5 Normal Comments 20 heel raises B PT-OP-Q Treatments Start: 05/23/23 15:45 Freq: Status: Active Protocol: Document 08/06/23 07:27 BS (Rec: 08/06/23 08:40 BS [id number]) Therapeutic Exercises Sitting Exercises Hip Isometrics Sitting Exercise Name Hip flex, ext, abd, add, IR & ER isometrics Side bilateral Standing Exercises SLS Standing Exercise Name SLS Side right Reps/Minutes max hold Core Standing Exercise Name AP/PA core stabilization Side bilateral ROM Standing Exercise Name lumbar ROM Side bilateral Comments flex, ext, B SB, seated rotation B Manual Therapy Treatment Soft Tissue Mobilization back Mobilization Type Rolling,Sustained Pressure Intensity/Depth Moderate Body Position Prone Comments L multifidus & paraspinal STM w/ small knee flex/ext AROM glutes Body Location L Mobilization Type Sustained Pressure Intensity/Depth Moderate Body Position Prone Comments L glute STM Joint Mobilizations lumbar Body Position Sidelying Comments R glide of L4-L5 SPs in R sidelying w/ L ant elevation PROM PT-OP-R Modalities Start: 05/23/23 15:45 Freq: Status: Active Protocol: Document 08/06/23 07:27 BS (Rec: 08/06/23 08:40 BS [id number]) Hot Pack/Cold Pack Treatment Cold Pack Location LB Patient Position Hooklying Treatment Duration (minutes) 10 PT-OP-T Assessment and Plan Start: 05/23/23 15:45 Freq: Status: Active Protocol: Document 08/06/23 07:27 BS (Rec: 08/06/23 08:37 BS [id number]) Physical Therapy Assessment Goals posture Jail Goal (LTG) Pt will show improved posture by scoring at least 3/5 on VCT 08/06- Achieved, increase goal to improve posture by scoring 4/5 on VCT LTG Duration 09/13/23 balance Biomedical Manager Goal (LTG) Pt will be able to do SLS on RLE 30 sec w/o lat hip shear or deviations. 08/06- Achieved LTG Duration 09/03/23 strength Short Term Goal (STG) Pt will be indep w/HEP STG Duration Achieved Biomedical Manager Goal (LTG) Pt will score at least 3/5 on all planes LPM and 5/5 on BLE strength in all planes to show iproved stability and dec instances of pain. 08/06- progresssing, still <2/5 on AP LPM scores B and hips < 5/5 in all motions expt add on R & abd on L LTG Duration 09/13/23 activities Short Term Goal (STG) Pt will be able to return to the gym to work out without inc pain greater than 2 points . 08/06- pt has not returned to gym to workout yet STG Duration 08/03/23 Biomedical Manager Goal (LTG) Pt will be able to carry her full load to/from the grocery store w/o pain greater than 2/ 10 after 08/06- pt carrying 2/3 of the load now comapred to 1/2 that she was at before. LTG Duration 09/13/23 Assessment Summary Assessment Pt seen today for PT progress note. Pt improved in all lumbar ROM and BLE strength that was <5/5 at eval, w/ most weakness still noted in hip ext. Pt also improved RLE SLS time from 13s to >30s w/ significantly less deviation & hip shear. Pt still limited by core stability but has improved slightly since evaluation. Pt reports overall improvement in pain and ability to complete iADLs, although is not quite back to baseline. Pt had significant pain coming out of R SB during ROM testing, improved to no pain following manual and only small twinge. Pt will benefit from continued skilled PT in order to address continued strength and postural deficits and inc dynamic balance in order to allow pt to return to iADLs and daily mobility w/o limitationd/t pain or fear of falls. Physical Therapy Plan Frequency and Duration Frequency of Treatment 1-2x/wk Duration of treatment (weeks) 12 Plan of Care Start Date 06/21/23 Plan of Care End Date 09/13/23 Therapeutic Interventions Therapeutic Interventions Balance Training,Gait Training ,Home Exercise Program,Joint Mobilizations,Manual Therapy, Neuromuscular Re-education, Orthotic/Prosthetic Management ,Patient/Caregiver Education, Self-Care/Home Management,Soft Tissue Mobilization,Taping, Therapeutic Activities, Therapeutic Exercises Modalities Cold Pack/Ice Massage,Electric Stimulation,Hot Packs, Infrared Therapy,Traction- Mechanical,Ultrasound Next Visit Focus/Plan Next Visit Plan work on lumbar mobility and PNF pelvis motion & facilitation. Continue to progress strength and load unilaterally w/ functional mvmts. Progress to working on dynamic balance in SLS
--- NOTE | 2023-08-13 09:44 | PT.OTN ---
Addendum entered and electronically signed by Shawnee Bates, PT 08/13/23 12:59: PT direct supervision and direction to PT student. Original Note: Current Diagnoses Radiculopathy, lumbar region (08/13/23) Difficulty in walking, not elsewhere classified (08/13/23) Abnormal posture (08/13/23) Weakness (08/13/23) Physical Therapy Treatment Note PT-OP-A Visit Information Start: 05/23/23 15:45 Freq: Status: Active Protocol: Document 08/13/23 07:39 BS (Rec: 08/13/23 09:33 BS [id number]) Out-Patient Physical Therapy Visit Information Visit Information Visit Type Treatment Note Visit Start Time 07:31 Visit Stop Time 08:25 Total Visit Minutes 54 Visit Number 11 Number of SUPERVISOR INCISING Visits 0 PT-OP-B Current Condition Start: 05/23/23 15:45 Freq: Status: Active Protocol: Document 06/21/23 07:30 [facility] (Rec: 06/21/23 08:18 [facility] [id number]) Current Condition History of Current Condition Current Complaints 25 years ago History of Current Condition Pt reports 25 years ago she woke up screaming and ended up in the hospital and in a w/c and L4-5 desicated disc. She had back pain and pain down her leg and loss of sensory. She had 2 spinal injections that made it so she did not need surgery and it was gone 20 years. Its back now. She wants to work on [employer] to help support that area. She has had 2 injections and that hasn't help up much. It started a few months ago. 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 h cannot sit or stand for an extended period. She walks at least 10 miles a day total split up throughout trails and concrete. She has been using 1lb wts on her hands. She is not back at the gym, but doing small wts w/shoulder. Pt did have pain down R leg until injection. Pain is more on R>L . She does have history of L broken shoulder that is partially recovered. Has Clay shoes recommended by preparator. Pt is avoiding her typical exercises as she is worried they might make soemthing worse. Pt used to be able to do SLS on blue and black side bosu and touch toes prior to fal that broke shoulder. After she fell, it dec her confidence. Prior Treatments and Tests injections IMPRESSION: 1. Multilevel degenerative disc disease as detailed above . 2. Moderate central canal stenosis at L4-5. Treatment Goals Patient/Caregiver Goals Be able to walk and carry full amount of groceries to/from store, be back at the gym working out, improve balance PT-OP-C Subjective Start: 05/23/23 15:45 Freq: Status: Active Protocol: Document 08/13/23 07:39 BS (Rec: 08/13/23 09:33 BS [id number]) OP-PT Subjective Patient Comments Patient Comments Pt reports getting recent DEXA scan results back and lumbar spine has progressed from osteopenia to osteoporosis. PT-OP-D Balance Start: 05/23/23 15:45 Freq: Status: Active Protocol: Document 08/06/23 07:27 BS (Rec: 08/06/23 08:37 BS [id number]) Balance Tests Single Limb Standing Single Limb- Right >30s w/o deviation Single Limb- Left >30 sec slight lat shear PT-OP-F Manual Assessment Start: 05/23/23 15:45 Freq: Status: Active Protocol: Document 06/21/23 07:30 [facility] (Rec: 06/21/23 08:18 [facility] [id number]) Manual Assessments Soft Tissue Assessment Soft Tissue Mobility Assessment R SI feels bruised. glute tenderness -feels like pins and needles Joint Mobility Assessment Joint Mobility Assessment pain in back w/passive hip ext PT-OP-G Mobility & Gait Start: 05/23/23 15:45 Freq: Status: Active Protocol: Document 06/21/23 07:30 [facility] (Rec: 06/21/23 08:18 [facility] [id number]) OP Gait Assessment Comments Gait Comments dec push off, dec scap movement, dec stance time RLE, dec push off overall, PT-OP-J Posture/Palpation/Skin Start: 05/23/23 15:45 Freq: Status: Active Protocol: Document 08/06/23 07:27 [facility] (Rec: 08/06/23 10:54 [facility] [id number]) Posture Evaluation Mili Postural Classification System Vertebral Compression Test 3 Lumbar Protective Mechanism Left AP 1 Lumbar Protective Mechanism Right AP 1 Lumbar Protective Mechanism Left PA 2 Lumbar Protective Mechanism Right PA 2 PT-OP-K Range of Motion Start: 05/23/23 15:45 Freq: Status: Active Protocol: Document 08/06/23 07:27 BS (Rec: 08/06/23 08:37 BS [id number]) Lumbar Spine Range of Motion Lumbar Spine Active Percentage Flexion 80 Extension 80 Rotation Left 60 Rotation Right 60 Lateral Flexion Left 100 Lateral Flexion Right 100 Comments pinch end range ext & pain coming out of R SB PT-OP-L Special Tests Start: 05/23/23 15:45 Freq: Status: Active Protocol: Document 06/21/23 07:30 [facility] (Rec: 06/21/23 08:18 [facility] [id number]) Special Tests Lumbar Spine Special Tests Slump Test Results dural tension L PT-OP-M Strength Start: 05/23/23 15:45 Freq: Status: Active Protocol: Document 08/06/23 07:27 BS (Rec: 08/06/23 08:37 BS [id number]) Hip Strength Hip Manual Muscle Testing Right Flexion (L2) 4 Good Extension (S1) 3+ Fair+ Abduction 4+ Good+ Adduction 5 Normal External Rotation 4- Good- Internal Rotation 4+ Good+ Left Flexion (L2) 4- Good- Extension (S1) 3+ Fair+ Abduction 5 Normal Adduction 4+ Good+ External Rotation 4- Good- Internal Rotation 4+ Good+ Knee Strength Knee Manual Muscle Testing Right Flexion (S2) 5 Normal Extension (L3) 5 Normal Left Flexion (S2) 5 Normal Extension (L3) 5 Normal Ankle/Foot Strength Ankle and Foot Manual Muscle Testing Right Dorsiflexion (L4) 5 Normal Plantarflexion (S1) 5 Normal Inversion 5 Normal Eversion (S1) 5 Normal Left Dorsiflexion (L4) 5 Normal Plantarflexion (S1) 5 Normal Inversion 5 Normal Eversion (S1) 5 Normal Comments 20 heel raises B PT-OP-Q Treatments Start: 05/23/23 15:45 Freq: Status: Active Protocol: Document 08/13/23 07:39 BS (Rec: 08/13/23 09:33 BS [id number]) Therapeutic Exercises Supine Exercises bugs Supine Exercise Name LE only Reps/Minutes x10 ea Comments cues to keep LB into mat Standing Exercises Carries Standing Exercise Name 1. farmers carry 2. suitcase carry Side bilateral Resistance 7# DBs Reps/Minutes 1. 2x20ft 2. x20ft ea Comments w/ march holds pallof press Side bilateral Resistance orange Reps/Minutes 1x10 ea Comments cued shld level/squared, soft knees and neutral LS Manual Therapy Treatment Soft Tissue Mobilization back Mobilization Type Rolling,Sustained Pressure Intensity/Depth Moderate Body Position Sidelying Comments R multifidus & paraspinal STM glutes Mobilization Type Sustained Pressure Intensity/Depth Moderate Body Position Sidelying Comments R glute STM Joint Mobilizations innominate Comments R IR in SL & flex in supine FM w/ muscle energy ER & ext isometrics PT-OP-R Modalities Start: 05/23/23 15:45 Freq: Status: Active Protocol: Document 08/13/23 07:39 BS (Rec: 08/13/23 09:34 BS [id number]) Hot Pack/Cold Pack Treatment Cold Pack Location LB Patient Position Hooklying Treatment Duration (minutes) 10 PT-OP-T Assessment and Plan Start: 05/23/23 15:45 Freq: Status: Active Protocol: Document 08/13/23 07:39 BS (Rec: 08/13/23 09:33 BS [id number]) Physical Therapy Assessment Goals posture [employer] Goal (LTG) Pt will show improved posture by scoring at least 3/5 on VCT 08/06- Achieved, increase goal to improve posture by scoring 4/5 on VCT LTG Duration 09/13/23 balance Half-Way Goal (LTG) Pt will be able to do SLS on RLE 30 sec w/o lat hip shear or deviations. 08/06- Achieved LTG Duration 09/03/23 strength Short Term Goal (STG) Pt will be indep w/HEP STG Duration Achieved Half-Way Goal (LTG) Pt will score at least 3/5 on all planes LPM and 5/5 on BLE strength in all planes to show iproved stability and dec instances of pain. 08/06- progresssing, still <2/5 on AP LPM scores B and hips < 5/5 in all motions expt add on R & abd on L LTG Duration 09/13/23 activities Short Term Goal (STG) Pt will be able to return to the gym to work out without inc pain greater than 2 points . 08/06- pt has not returned to gym to workout yet STG Duration 08/03/23 Half-Way Goal (LTG) Pt will be able to carry her full load to/from the grocery store w/o pain greater than 2/ 10 after 08/06- pt carrying 2/3 of the load now comapred to 1/2 that she was at before. LTG Duration 09/13/23 Assessment Summary Assessment Reviewed HEP today that pt reported was greatest challenge, including carries and star taps. Pt was able to complete however did show inc difficulty with balance. Pt reported pinch in back w/ passive R hip flex which went away following manual. Supine bugs added to HEP with alt LE mvmt only. Physical Therapy Plan Frequency and Duration Frequency of Treatment 1-2x/wk Duration of treatment (weeks) 12 Plan of Care Start Date 06/21/23 Plan of Care End Date 09/13/23 Next Visit Focus/Plan Next Note Type Treatment Note Next Visit Plan work on lumbar mobility and PNF pelvis motion & facilitation. Continue to progress core and BLE strength and load unilaterally w/ functional mvmts. Progress to working on dynamic balance in SLS
--- NOTE | 2023-08-15 16:58 | PT.OTN ---
Addendum entered and electronically signed by Shawnee Bates, PT 08/16/23 07:41: PT direct supervision and direction to PT student. Original Note: Current Diagnoses Radiculopathy, lumbar region (08/15/23) Difficulty in walking, not elsewhere classified (08/15/23) Abnormal posture (08/15/23) Weakness (08/15/23) Physical Therapy Treatment Note PT-OP-A Visit Information Start: 05/23/23 15:45 Freq: Status: Active Protocol: Document 08/15/23 08:21 BS (Rec: 08/15/23 09:04 BS [id number]) Out-Patient Physical Therapy Visit Information Visit Information Visit Type Treatment Note Visit Start Time 08:20 Visit Stop Time 09:00 Total Visit Minutes 40 Visit Number 12 Number of PEDIATRIC RN Visits 0 PT-OP-B Current Condition Start: 05/23/23 15:45 Freq: Status: Active Protocol: Document 06/21/23 07:30 [facility] (Rec: 06/21/23 08:18 [facility] [id number]) Current Condition History of Current Condition Current Complaints 25 years ago History of Current Condition Pt reports 25 years ago she woke up screaming and ended up in the hospital and in a w/c and L4-5 desicated disc. She had back pain and pain down her leg and loss of sensory. She had 2 spinal injections that made it so she did not need surgery and it was gone 20 years. Its back now. She wants to work on [employer] to help support that area. She has had 2 injections and that hasn't help up much. It started a few months ago. 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 [facility] cannot sit or stand for an extended period. She walks at least 10 miles a day total split up throughout trails and concrete. She has been using 1lb wts on her hands. She is not back at the gym, but doing small wts w/shoulder. Pt did have pain down R leg until injection. Pain is more on R>L . She does have history of L broken shoulder that is partially recovered. Has Clay shoes recommended by implementation advisor. Pt is avoiding her typical exercises as she is worried they might make soemthing worse. Pt used to be able to do SLS on blue and black side bosu and touch toes prior to fal that broke shoulder. After she fell, it dec her confidence. Prior Treatments and Tests injections IMPRESSION: 1. Multilevel degenerative disc disease as detailed above . 2. Moderate central canal stenosis at L4-5. Treatment Goals Patient/Caregiver Goals Be able to walk and carry full amount of groceries to/from store, be back at the gym working out, improve balance PT-OP-C Subjective Start: 05/23/23 15:45 Freq: Status: Active Protocol: Document 08/15/23 08:21 BS (Rec: 08/15/23 09:04 [id number]) OP-PT Subjective Patient Comments Patient Comments Didn't do balance HEP because back was sore but did do core and felt good challenge PT-OP-D Balance Start: 05/23/23 15:45 Freq: Status: Active Protocol: Document 08/06/23 07:27 BS (Rec: 08/06/23 08:37 [id number]) Balance Tests Single Limb Standing Single Limb- Right >30s w/o deviation Single Limb- Left >30 sec slight lat shear PT-OP-F Manual Assessment Start: 05/23/23 15:45 Freq: Status: Active Protocol: Document 06/21/23 07:30 [facility] (Rec: 06/21/23 08:18 [facility] [id number]) Manual Assessments Soft Tissue Assessment Soft Tissue Mobility Assessment R SI feels bruised. glute tenderness -feels like pins and needles Joint Mobility Assessment Joint Mobility Assessment pain in back w/passive hip ext PT-OP-G Mobility & Gait Start: 05/23/23 15:45 Freq: Status: Active Protocol: Document 06/21/23 07:30 [facility] (Rec: 06/21/23 08:18 [facility] [id number]) OP Gait Assessment Comments Gait Comments dec push off, dec scap movement, dec stance time RLE, dec push off overall, PT-OP-J Posture/Palpation/Skin Start: 05/23/23 15:45 Freq: Status: Active Protocol: Document 08/06/23 07:27 [facility] (Rec: 08/06/23 10:54 [facility] [id number]) Posture Evaluation Mili Postural Classification System Vertebral Compression Test 3 Lumbar Protective Mechanism Left AP 1 Lumbar Protective Mechanism Right AP 1 Lumbar Protective Mechanism Left PA 2 Lumbar Protective Mechanism Right PA 2 PT-OP-K Range of Motion Start: 05/23/23 15:45 Freq: Status: Active Protocol: Document 08/06/23 07:27 BS (Rec: 08/06/23 08:37 BS [id number]) Lumbar Spine Range of Motion Lumbar Spine Active Percentage Flexion 80 Extension 80 Rotation Left 60 Rotation Right 60 Lateral Flexion Left 100 Lateral Flexion Right 100 Comments pinch end range ext & pain coming out of R SB PT-OP-L Special Tests Start: 05/23/23 15:45 Freq: Status: Active Protocol: Document 06/21/23 07:30 [facility] (Rec: 06/21/23 08:18 [facility] [id number]) Special Tests Lumbar Spine Special Tests Slump Test Results dural tension L PT-OP-M Strength Start: 05/23/23 15:45 Freq: Status: Active Protocol: Document 08/06/23 07:27 BS (Rec: 08/06/23 08:37 BS [id number]) Hip Strength Hip Manual Muscle Testing Right Flexion (L2) 4 Good Extension (S1) 3+ Fair+ Abduction 4+ Good+ Adduction 5 Normal External Rotation 4- Good- Internal Rotation 4+ Good+ Left Flexion (L2) 4- Good- Extension (S1) 3+ Fair+ Abduction 5 Normal Adduction 4+ Good+ External Rotation 4- Good- Internal Rotation 4+ Good+ Knee Strength Knee Manual Muscle Testing Right Flexion (S2) 5 Normal Extension (L3) 5 Normal Left Flexion (S2) 5 Normal Extension (L3) 5 Normal Ankle/Foot Strength Ankle and Foot Manual Muscle Testing Right Dorsiflexion (L4) 5 Normal Plantarflexion (S1) 5 Normal Inversion 5 Normal Eversion (S1) 5 Normal Left Dorsiflexion (L4) 5 Normal Plantarflexion (S1) 5 Normal Inversion 5 Normal Eversion (S1) 5 Normal Comments 20 heel raises B PT-OP-Q Treatments Start: 05/23/23 15:45 Freq: Status: Active Protocol: Document 08/15/23 08:21 BS (Rec: 08/15/23 09:04 BS [id number]) Therapeutic Exercises Supine Exercises bridges Supine Exercise Name 1. DL bridges 2. SL bridge marching Side bilateral Reps/Minutes x10, x3ea Comments cues for driving heel into mat for more post engagement bugs Supine Exercise Name LE only Reps/Minutes x10 ea Comments cues to keep LB into mat LTR Side bilateral Reps/Minutes x8 ea Comments focus on segmental mvmt Standing Exercises Step ups Standing Exercise Name Step ups w/ slow eccentric Side bilateral Reps/Minutes 3x10 ea Comments 8>12, 7# Dbs to no weight on higher step Carries Standing Exercise Name 1. farmers carry 2. suitcase carry Side bilateral Resistance 1. 7# DBs 2. 10# Reps/Minutes 1. 2x40ft 2. x40ft ea Comments w/ november holds Neuro Re-Education Treatment Other Activities Facilitation Comments L5-L2 segmental facilitation w / active LTR PT-OP-R Modalities Start: 05/23/23 15:45 Freq: Status: Active Protocol: Document 08/13/23 07:39 BS (Rec: 08/13/23 09:34 BS [id number]) Hot Pack/Cold Pack Treatment Cold Pack Location LB Patient Position Hooklying Treatment Duration (minutes) 10 PT-OP-T Assessment and Plan Start: 05/23/23 15:45 Freq: Status: Active Protocol: Document 08/15/23 08:21 BS (Rec: 08/15/23 09:04 BS [id number]) Physical Therapy Assessment Goals posture Intermediate Goal (LTG) Pt will show improved posture by scoring at least 3/5 on VCT 08/06- Achieved, increase goal to improve posture by scoring 4/5 on VCT LTG Duration 09/13/23 balance Intermediate Goal (LTG) Pt will be able to do SLS on RLE 30 sec w/o lat hip shear or deviations. 08/06- Achieved LTG Duration 09/03/23 strength Short Term Goal (STG) Pt will be indep w/HEP STG Duration Achieved Intermediate Goal (LTG) Pt will score at least 3/5 on all planes LPM and 5/5 on BLE strength in all planes to show iproved stability and dec instances of pain. 08/06- progresssing, still <2/5 on AP LPM scores B and hips < 5/5 in all motions expt add on R & abd on L LTG Duration 09/13/23 activities Short Term Goal (STG) Pt will be able to return to the gym to work out without inc pain greater than 2 points . 08/06- pt has not returned to gym to workout yet STG Duration 08/03/23 Intermediate Goal (LTG) Pt will be able to carry her full load to/from the grocery store w/o pain greater than 2/ 10 after 08/06- pt carrying 2/3 of the load now comapred to 1/2 that she was at before. LTG Duration 09/13/23 Assessment Summary Assessment Pt progressed well with step ups and LE strength therex. the cue to drive through heel on carries and marching really helped pt gain more motor control. Pt able to progress to 12 step ups, although when holding weights was unable to fully drive through stance leg to get full ext so weights were removed & pt had much greater success. Pt feels torque on back when doing paloff press so focused on LTR rotary control with facilitation for segmental movement which sig increased pt ability to use core and movement individual segments. Physical Therapy Plan Frequency and Duration Frequency of Treatment 1-2x/wk Duration of treatment (weeks) 12 Plan of Care Start Date 06/21/23 Plan of Care End Date 09/13/23 Next Visit Focus/Plan Next Note Type Treatment Note Next Visit Plan LTR segmental facilitation. work on lumbar mobility and PNF pelvis motion & facilitation. Continue to progress core and BLE strength and load unilaterally w/ functional mvmts. Progress to working on dynamic balance in SLS
--- NOTE | 2023-08-20 10:16 | PT.OTN ---
Current Diagnoses Radiculopathy, lumbar region (08/20/23) Difficulty in walking, not elsewhere classified (08/20/23) Abnormal posture (08/20/23) Weakness (08/20/23) Physical Therapy Treatment Note PT-OP-A Visit Information Start: 05/23/23 15:45 Freq: Status: Active Protocol: Document 08/20/23 07:29 [facility] (Rec: 08/20/23 10:16 [facility] [id number]) Out-Patient Physical Therapy Visit Information Visit Information Visit Type Treatment Note Visit Start Time 07:30 Visit Stop Time 08:13 Total Visit Minutes 43 Visit Number 13 Number of WAITER/WAITRESS FORMAL Visits 0 PT-OP-B Current Condition Start: 05/23/23 15:45 Freq: Status: Active Protocol: Document 06/21/23 07:30 [facility] (Rec: 06/21/23 08:18 [facility] [id number]) Current Condition History of Current Condition Current Complaints 25 years ago History of Current Condition Pt reports 25 years ago she woke up screaming and ended up in the hospital and in a w/c and L4-5 desicated disc. She had back pain and pain down her leg and loss of sensory. She had 2 spinal injections that made it so she did not need surgery and it was gone 20 years. Its back now. She wants to work on [email or web address] to help support that area. She has had 2 injections and that hasn't help up much. It started a few months ago. 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 [facility] cannot sit or stand for an extended period. She walks at least 10 miles a day total split up throughout trails and concrete. She has been using 1lb wts on her hands. She is not back at the gym, but doing small wts w/shoulder. Pt did have pain down R leg until injection. Pain is more on R>L . She does have history of L broken shoulder that is partially recovered. Has Clay shoes recommended by plaster foreman. Pt is avoiding her typical exercises as she is worried they might make soemthing worse. Pt used to be able to do SLS on blue and black side bosu and touch toes prior to fal that broke shoulder. After she fell, it dec her confidence. Prior Treatments and Tests injections IMPRESSION: 1. Multilevel degenerative disc disease as detailed above . 2. Moderate central canal stenosis at L4-5. Treatment Goals Patient/Caregiver Goals Be able to walk and carry full amount of groceries to/from store, be back at the gym working out, improve balance PT-OP-C Subjective Start: 05/23/23 15:45 Freq: Status: Active Protocol: Document 08/20/23 07:29 [facility] (Rec: 08/20/23 10:16 [facility] [id number]) OP-PT Subjective Patient Comments Patient Comments Pt reprots still sore all the time. brougth exercise papers PT-OP-D Balance Start: 05/23/23 15:45 Freq: Status: Active Protocol: Document 08/06/23 07:27 BS (Rec: 08/06/23 08:37 BS [id number]) Balance Tests Single Limb Standing Single Limb- Right >30s w/o deviation Single Limb- Left >30 sec slight lat shear PT-OP-F Manual Assessment Start: 05/23/23 15:45 Freq: Status: Active Protocol: Document 06/21/23 07:30 [facility] (Rec: 06/21/23 08:18 [facility] [id number]) Manual Assessments Soft Tissue Assessment Soft Tissue Mobility Assessment R SI feels bruised. glute tenderness -feels like pins and needles Joint Mobility Assessment Joint Mobility Assessment pain in back w/passive hip ext PT-OP-G Mobility & Gait Start: 05/23/23 15:45 Freq: Status: Active Protocol: Document 06/21/23 07:30 [facility] (Rec: 06/21/23 08:18 [facility] [id number]) OP Gait Assessment Comments Gait Comments dec push off, dec scap movement, dec stance time RLE, dec push off overall, PT-OP-J Posture/Palpation/Skin Start: 05/23/23 15:45 Freq: Status: Active Protocol: Document 08/06/23 07:27 [facility] (Rec: 08/06/23 10:54 [facility] [id number]) Posture Evaluation Mili Postural Classification System Vertebral Compression Test 3 Lumbar Protective Mechanism Left AP 1 Lumbar Protective Mechanism Right AP 1 Lumbar Protective Mechanism Left PA 2 Lumbar Protective Mechanism Right PA 2 PT-OP-K Range of Motion Start: 05/23/23 15:45 Freq: Status: Active Protocol: Document 08/06/23 07:27 BS (Rec: 08/06/23 08:37 BS [id number]) Lumbar Spine Range of Motion Lumbar Spine Active Percentage Flexion 80 Extension 80 Rotation Left 60 Rotation Right 60 Lateral Flexion Left 100 Lateral Flexion Right 100 Comments pinch end range ext & pain coming out of R SB PT-OP-L Special Tests Start: 05/23/23 15:45 Freq: Status: Active Protocol: Document 06/21/23 07:30 [facility] (Rec: 06/21/23 08:18 [facility] [id number]) Special Tests Lumbar Spine Special Tests Slump Test Results dural tension L PT-OP-M Strength Start: 05/23/23 15:45 Freq: Status: Active Protocol: Document 08/06/23 07:27 BS (Rec: 08/06/23 08:37 [id number]) Hip Strength Hip Manual Muscle Testing Right Flexion (L2) 4 Good Extension (S1) 3+ Fair+ Abduction 4+ Good+ Adduction 5 Normal External Rotation 4- Good- Internal Rotation 4+ Good+ Left Flexion (L2) 4- Good- Extension (S1) 3+ Fair+ Abduction 5 Normal Adduction 4+ Good+ External Rotation 4- Good- Internal Rotation 4+ Good+ Knee Strength Knee Manual Muscle Testing Right Flexion (S2) 5 Normal Extension (L3) 5 Normal Left Flexion (S2) 5 Normal Extension (L3) 5 Normal Ankle/Foot Strength Ankle and Foot Manual Muscle Testing Right Dorsiflexion (L4) 5 Normal Plantarflexion (S1) 5 Normal Inversion 5 Normal Eversion (S1) 5 Normal Left Dorsiflexion (L4) 5 Normal Plantarflexion (S1) 5 Normal Inversion 5 Normal Eversion (S1) 5 Normal Comments 20 heel raises B PT-OP-Q Treatments Start: 05/23/23 15:45 Freq: Status: Active Protocol: Document 08/20/23 07:29 [facility] (Rec: 08/20/23 10:16 [facility] [id number]) Therapeutic Exercises Supine Exercises stretch Supine Exercise Name active HS stretch Side right Reps/Minutes 5x20 sec bridges Supine Exercise Name DL bridges Side bilateral Reps/Minutes 15sec x4 Comments attempted marches but HS cramp LTR Side bilateral Reps/Minutes x8 ea Comments focus on segmental mvmt abdominal series Supine Exercise Name 1.flex 2. diagonal Reps/Minutes 30 sec ea Neuro Re-Education Treatment Other Activities Facilitation Reps/Duration 18 min Comments 1.L5-L1 segmental facilitation w/ active LTR on R 2. traction through in R in sitting w/facilitation w/ traction to get glute engagement -mult reps progressed to wt shift w/body wt hip hinge 3. traction through BLE w/ bridge to inc glute Self-Care/Home Management Treatment Education Other Education 12 min:discussion of gym machines that are safe (rows, lat pull down, leg press, HS curl, bicep/tri, hip add/abd, avoid overhead & knee ext machines) start small, edu okay to swim but start samll and listen to body. review of current exercise paper PT-OP-R Modalities Start: 05/23/23 15:45 Freq: Status: Active Protocol: Document 08/13/23 07:39 BS (Rec: 08/13/23 09:34 BS [id number]) Hot Pack/Cold Pack Treatment Cold Pack Location LB Patient Position Hooklying Treatment Duration (minutes) 10 PT-OP-T Assessment and Plan Start: 05/23/23 15:45 Freq: Status: Active Protocol: Document 08/20/23 07:29 [facility] (Rec: 08/20/23 10:16 [facility] [id number]) Physical Therapy Assessment Goals posture Gas Pit Worker Goal (LTG) Pt will show improved posture by scoring at least 3/5 on VCT 08/06- Achieved, increase goal to improve posture by scoring 4/5 on VCT LTG Duration 09/13/23 balance Custodial Goal (LTG) Pt will be able to do SLS on RLE 30 sec w/o lat hip shear or deviations. 08/06- Achieved LTG Duration 09/03/23 strength Short Term Goal (STG) Pt will be indep w/HEP STG Duration Achieved Gas Pit Worker Goal (LTG) Pt will score at least 3/5 on all planes LPM and 5/5 on BLE strength in all planes to show iproved stability and dec instances of pain. 08/06- progresssing, still <2/5 on AP LPM scores B and hips < 5/5 in all motions expt add on R & abd on L LTG Duration 09/13/23 activities Short Term Goal (STG) Pt will be able to return to the gym to work out without inc pain greater than 2 points . 08/06- pt has not returned to gym to workout yet STG Duration 08/03/23 Gas Pit Worker Goal (LTG) Pt will be able to carry her full load to/from the grocery store w/o pain greater than 2/ 10 after 08/06- pt carrying 2/3 of the load now comapred to 1/2 that she was at before. LTG Duration 09/13/23 Assessment Summary Assessment Pt did well with exercises but did requier facilitation for all and cueing throughout but did improve after. Physical Therapy Plan Frequency and Duration Frequency of Treatment 1-2x/wk Duration of treatment (weeks) 12 Plan of Care Start Date 06/21/23 Plan of Care End Date 09/13/23 Next Visit Focus/Plan Next Note Type Treatment Note Next Visit Plan cont to work on segmental stability and rotational strength; PNF for further core facilitation
--- NOTE | 2023-08-30 10:21 | PT.OTN ---
Current Diagnoses Radiculopathy, lumbar region (08/30/23) Difficulty in walking, not elsewhere classified (08/30/23) Abnormal posture (08/30/23) Weakness (08/30/23) Physical Therapy Treatment Note PT-OP-A Visit Information Start: 05/23/23 15:45 Freq: Status: Active Protocol: Document 08/30/23 07:35 [facility] (Rec: 08/30/23 08:16 [facility] [id number]) Out-Patient Physical Therapy Visit Information Visit Information Visit Type Progress Note Visit Start Time 07:36 Visit Stop Time 08:23 Total Visit Minutes 47 Visit Number 14 Number of WORKING SUPERVISOR Visits 0 PT-OP-B Current Condition Start: 05/23/23 15:45 Freq: Status: Active Protocol: Document 06/21/23 07:30 [facility] (Rec: 06/21/23 08:18 [facility] [id number]) Current Condition History of Current Condition Current Complaints 25 years ago History of Current Condition Pt reports 25 years ago she woke up screaming and ended up in the hospital and in a w/c and L4-5 desicated disc. She had back pain and pain down her leg and loss of sensory. She had 2 spinal injections that made it so she did not need surgery and it was gone 20 years. Its back now. She wants to work on [employer] to help support that area. She has had 2 injections and that hasn't help up much. It started a few months ago. 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 [facility] cannot sit or stand for an extended period. She walks at least 10 miles a day total split up throughout trails and concrete. She has been using 1lb wts on her hands. She is not back at the gym, but doing small wts w/shoulder. Pt did have pain down R leg until injection. Pain is more on R>L . She does have history of L broken shoulder that is partially recovered. Has Clay shoes recommended by bilingual loan processor. Pt is avoiding her typical exercises as she is worried they might make soemthing worse. Pt used to be able to do SLS on blue and black side bosu and touch toes prior to fal that broke shoulder. After she fell, it dec her confidence. Prior Treatments and Tests injections IMPRESSION: 1. Multilevel degenerative disc disease as detailed above . 2. Moderate central canal stenosis at L4-5. Treatment Goals Patient/Caregiver Goals Be able to walk and carry full amount of groceries to/from store, be back at the gym working out, improve balance PT-OP-C Subjective Start: 05/23/23 15:45 Freq: Status: Active Protocol: Document 08/30/23 07:35 [facility] (Rec: 08/30/23 08:16 [facility] [id number]) OP-PT Subjective Patient Comments Patient Comments Pt PT-OP-D Balance Start: 05/23/23 15:45 Freq: Status: Active Protocol: Document 08/06/23 07:27 BS (Rec: 08/06/23 08:37 BS [id number]) Balance Tests Single Limb Standing Single Limb- Right >30s w/o deviation Single Limb- Left >30 sec slight lat shear PT-OP-F Manual Assessment Start: 05/23/23 15:45 Freq: Status: Active Protocol: Document 06/21/23 07:30 [facility] (Rec: 06/21/23 08:18 [facility] [id number]) Manual Assessments Soft Tissue Assessment Soft Tissue Mobility Assessment R SI feels bruised. glute tenderness -feels like pins and needles Joint Mobility Assessment Joint Mobility Assessment pain in back w/passive hip ext PT-OP-G Mobility & Gait Start: 05/23/23 15:45 Freq: Status: Active Protocol: Document 06/21/23 07:30 [facility] (Rec: 06/21/23 08:18 [facility] [id number]) OP Gait Assessment Comments Gait Comments dec push off, dec scap movement, dec stance time RLE, dec push off overall, PT-OP-J Posture/Palpation/Skin Start: 05/23/23 15:45 Freq: Status: Active Protocol: Document 08/30/23 07:35 [facility] (Rec: 08/30/23 09:01 [facility] [id number]) Posture Evaluation Mili Postural Classification System Vertebral Compression Test 3 Elbow Flexion Test 2 Lumbar Protective Mechanism Left AP 2 Lumbar Protective Mechanism Right AP 2 Lumbar Protective Mechanism Left PA 2 Lumbar Protective Mechanism Right PA 2 PT-OP-K Range of Motion Start: 05/23/23 15:45 Freq: Status: Active Protocol: Document 08/06/23 07:27 BS (Rec: 08/06/23 08:37 BS [id number]) Lumbar Spine Range of Motion Lumbar Spine Active Percentage Flexion 80 Extension 80 Rotation Left 60 Rotation Right 60 Lateral Flexion Left 100 Lateral Flexion Right 100 Comments pinch end range ext & pain coming out of R SB PT-OP-L Special Tests Start: 05/23/23 15:45 Freq: Status: Active Protocol: Document 06/21/23 07:30 [facility] (Rec: 06/21/23 08:18 [facility] [id number]) Special Tests Lumbar Spine Special Tests Slump Test Results dural tension L PT-OP-M Strength Start: 05/23/23 15:45 Freq: Status: Active Protocol: Document 08/30/23 07:35 [facility] (Rec: 08/30/23 09:01 [facility] [id number]) Hip Strength Hip Manual Muscle Testing Right Flexion (L2) 4- Good- Extension (S1) 3+ Fair+ Abduction 4+ Good+ Adduction 5 Normal External Rotation 5 Normal Internal Rotation 5 Normal Left Flexion (L2) 4 Good Extension (S1) 3+ Fair+ Abduction 4+ Good+ Adduction 5 Normal External Rotation 5 Normal Internal Rotation 5 Normal Knee Strength Knee Manual Muscle Testing Right Flexion (S2) 5 Normal Extension (L3) 5 Normal Left Flexion (S2) 5 Normal Extension (L3) 5 Normal Ankle/Foot Strength Ankle and Foot Manual Muscle Testing Right Dorsiflexion (L4) 5 Normal Plantarflexion (S1) 5 Normal Inversion 5 Normal Eversion (S1) 5 Normal Left Dorsiflexion (L4) 5 Normal Plantarflexion (S1) 5 Normal Inversion 5 Normal Eversion (S1) 5 Normal Comments 20 heel raises B PT-OP-Q Treatments Start: 05/23/23 15:45 Freq: Status: Active Protocol: Document 08/30/23 07:35 [facility] (Rec: 08/30/23 08:16 [facility] [id number]) Gym Equipment Therapeutic Ball bridge Ball Size/Color 55cm Reps/Duration 2x10 sec ea-edu w/progression w/these Comments 1. heels dig in 2. ball under lower legs 3. knee straight push into ball bosu Comments black and blue side w/feet for bridges 10 sec hold x2 ea Therapeutic Exercises Supine Exercises LTR Side bilateral Reps/Minutes x3 ea Comments focus on segmental mvmt Sitting Exercises hip hinge Sitting Exercise Name w/dowel on back for core Reps/Minutes 10 Comments attempted in V sit position in more long sit but painful so stopped Hip Isometrics Sitting Exercise Name Hip flex, ext, abd, add, IR & ER isometrics (MMT) and standing core LPM,EFT Side bilateral Standing Exercises squat Standing Exercise Name SL sit to stand Side bilateral Reps/Minutes 5 ea Comments elevated mat table wall posture Standing Exercise Name wall roll up w/B UE ext then 90/90 Habd Side bilateral Reps/Minutes 5 min Carries Standing Exercise Name suitcase w/band holding wt Equipment Used lvl 5 band w/7# Reps/Minutes 20ft B Therapeutic Activity Therapeutic Activity posture Name unsupported sit Reps/Minutes 12 min Comments working on seated posture w/PT setting pt then progrssed to pt setting position w/cues Self-Care/Home Management Treatment Education Other Education 12 min: edu on importance of improving thoracic spien position in order to take load off lumbar spine. edu to pt to try tracking nutrition w/ vera like [employer] to help w/her wt loss concerns; discussed benefits of HIIT training (1min at 90% w/1 min rest up to 10 reps w/warm up and cool down) for wt loss and mm strength; Edu to consider work w/ND if cont to have difficulties w/wt loss w/ working on adjusting workouts and w/monitoring diet more. PT-OP-R Modalities Start: 05/23/23 15:45 Freq: Status: Active Protocol: Document 08/13/23 07:39 BS (Rec: 08/13/23 09:34 BS [id number]) Hot Pack/Cold Pack Treatment Cold Pack Location LB Patient Position Hooklying Treatment Duration (minutes) 10 PT-OP-T Assessment and Plan Start: 05/23/23 15:45 Freq: Status: Active Protocol: Document 08/30/23 07:35 [facility] (Rec: 08/30/23 08:16 [facility] [id number]) Physical Therapy Assessment Goals upper back Impairment tightness in thoracic spine constant -2-11/10 Furnace And Wash Equipment Operator Goal (LTG) Pt will report dec tightnes in thoracic spine and note not constant pain. LTG Duration 11/08/23 posture Furnace And Wash Equipment Operator Goal (LTG) Pt will show improved posture by scoring at least 3/5 on VCT 12/- Achieved, increase goal to improve posture by scoring 4/5 on VCT LTG Duration 09/13/23 balance Furnace And Wash Equipment Operator Goal (LTG) Pt will be able to do SLS on RLE 30 sec w/o lat hip shear or deviations. 08/06- Achieved LTG Duration achieved strength Short Term Goal (STG) Pt will be indep w/HEP STG Duration Achieved Correction Goal (LTG) Pt will score at least 3/5 on all planes LPM and 5/5 on BLE strength in all planes to show iproved stability and dec instances of pain. 08/06- progresssing, still <2/5 on AP LPM scores B and hips < 5/5 in all motions expt add on R & abd on L LTG Duration 09/13/23 activities Short Term Goal (STG) Pt will be able to return to the gym to work out without inc pain greater than 2 points . 08/06- pt has not returned to gym to workout yet STG Duration achieved 08/30 Correction Goal (LTG) Pt will be able to carry her full load to/from the grocery store w/o pain greater than 2/ 10 after 08/06- pt carrying 2/3 of the load now comapred to 1/2 that she was at before. 08/30-still limited w/load-no change LTG Duration 11/08/23 Assessment Summary Assessment Pt has made excellent progress w/PT and is feeling more functional overall and dec pain. She cont to have lumbar paina nd is limiting herself some, along w/constant thoracic pain. She is imprvoing w/core stability and overall LE strength at this time but does still show glute weakness and restricted thoracic mobility. Cont PT to update HEP and imprvoe mobility of spine in order to improve efficiency w/movement to dec pain. Physical Therapy Plan Frequency and Duration Frequency of Treatment Every Other Week Duration of treatment (weeks) 10 Plan of Care Start Date 08/30/23 Plan of Care End Date 11/08/23 Therapeutic Interventions Therapeutic Interventions Balance Training,Gait Training ,Home Exercise Program,Joint Mobilizations,Manual Therapy, Neuromuscular Re-education, Orthotic/Prosthetic Management ,Patient/Caregiver Education, Self-Care/Home Management,Soft Tissue Mobilization,Taping, Therapeutic Activities, Therapeutic Exercises Modalities Cold Pack/Ice Massage,Electric Stimulation,Hot Packs, Infrared Therapy,Traction- Mechanical,Ultrasound Next Visit Focus/Plan Next Note Type Treatment Note Next Visit Plan work on posture and cont to review and work on thoraicc mobility to improve posture and dec pain; hip ext strength
--- NOTE | 2023-08-30 10:21 | PT.OPPOC ---
Physical, Occupational & Speech Therapy At [facility] Current Diagnoses Radiculopathy, lumbar region (08/30/23) Difficulty in walking, not elsewhere classified (08/30/23) Abnormal posture (08/30/23) Weakness (08/30/23) Visit Care Team Role Provider Type Ness Amaya DO Family Provider Physician Primary Care Provider Specialty: Family Practice Address: [address] [place] [address], [facility] [place], [address] Email: [email or web address] Sanders MD Attending Provider Physician Referring Provider Specialty: Anesthesiology Interventional Radiology Pain Management Address: [address] [place] [address], [id number] Email: [email or web address] Plan Of Care PT-OP-T Assessment and Plan Start: 05/23/23 15:45 Freq: Status: Active Protocol: Document 08/30/23 07:35 [facility] (Rec: 08/30/23 08:16 [facility] [id number]) Physical Therapy Assessment Goals upper back Impairment tightness in thoracic spine constant -2-310 Bin Piler Goal (LTG) Pt will report dec tightnes in thoracic spine and note not constant pain. LTG Duration 11/08/23 posture Residential Goal (LTG) Pt will show improved posture by scoring at least 3/5 on VCT 08/06- Achieved, increase goal to improve posture by scoring 4/5 on VCT LTG Duration 09/13/23 balance Bin Piler Goal (LTG) Pt will be able to do SLS on RLE 30 sec w/o lat hip shear or deviations. 08/06- Achieved LTG Duration achieved strength Short Term Goal (STG) Pt will be indep w/HEP STG Duration Achieved Residential Goal (LTG) Pt will score at least 3/5 on all planes LPM and 5/5 on BLE strength in all planes to show iproved stability and dec instances of pain. 08/06- progresssing, still <2/5 on AP LPM scores B and hips < 5/5 in all motions expt add on R & abd on L LTG Duration 09/13/23 activities Short Term Goal (STG) Pt will be able to return to the gym to work out without inc pain greater than 2 points . 08/06- pt has not returned to gym to workout yet STG Duration achieved 08/30 Bin Piler Goal (LTG) Pt will be able to carry her full load to/from the grocery store w/o pain greater than 2/ 10 after 08/06- pt carrying 2/3 of the load now comapred to 1/2 that she was at before. 08/30-still limited w/load-no change LTG Duration 11/08/23 Assessment Summary Assessment Pt has made excellent progress w/PT and is feeling more functional overall and dec pain. She cont to have lumbar paina nd is limiting herself some, along w/constant thoracic pain. She is imprvoing w/core stability and overall LE strength at this time but does still show glute weakness and restricted thoracic mobility. Cont PT to update HEP and imprvoe mobility of spine in order to improve efficiency w/movement to dec pain. Physical Therapy Plan Frequency and Duration Frequency of Treatment Every Other Week Duration of treatment (weeks) 10 Plan of Care Start Date 08/30/23 Plan of Care End Date 11/08/23 Therapeutic Interventions Therapeutic Interventions Balance Training,Gait Training ,Home Exercise Program,Joint Mobilizations,Manual Therapy, Neuromuscular Re-education, Orthotic/Prosthetic Management ,Patient/Caregiver Education, Self-Care/Home Management,Soft Tissue Mobilization,Taping, Therapeutic Activities, Therapeutic Exercises Modalities Cold Pack/Ice Massage,Electric Stimulation,Hot Packs, Infrared Therapy,Traction- Mechanical,Ultrasound Next Visit Focus/Plan Next Note Type Treatment Note Next Visit Plan work on posture and cont to review and work on thoraicc mobility to improve posture and dec pain; hip ext strength Plan of Care Dates Plan of Care Start Date 08/30/23 Plan of Care End Date 11/08/23 Electronically Signed by: Shawnee Bates, PT 08/30/23 1021 If you are in agreement with this Plan of Care, please return a signed and dated copy. I have reviewed this Plan of Care and certify that the skilled therapy services above are required to meet the patient?s needs. Physician Signature Date Printed Name and Credentials Clinical Instructor Signature Printed Name and Credentials
--- NOTE | 2023-09-13 10:40 | PT.OTN ---
Current Diagnoses Radiculopathy, lumbar region (09/13/23) Difficulty in walking, not elsewhere classified (09/13/23) Abnormal posture (09/13/23) Weakness (09/13/23) Physical Therapy Treatment Note PT-OP-A Visit Information Start: 05/23/23 15:45 Freq: Status: Active Protocol: Document 09/13/23 09:49 [facility] (Rec: 09/13/23 10:40 [facility] [id number]) Out-Patient Physical Therapy Visit Information Visit Information Visit Type Treatment Note Visit Start Time 09:48 Visit Stop Time 10:30 Total Visit Minutes 42 Visit Number 15 Number of SOLID WASTE DIVISION SUPERVISOR Visits 0 PT-OP-B Current Condition Start: 05/23/23 15:45 Freq: Status: Active Protocol: Document 06/21/23 07:30 [facility] (Rec: 06/21/23 08:18 [facility] [id number]) Current Condition History of Current Condition Current Complaints 25 years ago History of Current Condition Pt reports 25 years ago she woke up screaming and ended up in the hospital and in a w/c and L4-5 desicated disc. She had back pain and pain down her leg and loss of sensory. She had 2 spinal injections that made it so she did not need surgery and it was gone 20 years. Its back now. She wants to work on [employer] to help support that area. She has had 2 injections and that hasn't help up much. It started a few months ago. 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 [facility] cannot sit or stand for an extended period. She walks at least 10 miles a day total split up throughout trails and concrete. She has been using 1lb wts on her hands. She is not back at the gym, but doing small wts w/shoulder. Pt did have pain down R leg until injection. Pain is more on R>L . She does have history of L broken shoulder that is partially recovered. Has Clay shoes recommended by travel consultant. Pt is avoiding her typical exercises as she is worried they might make soemthing worse. Pt used to be able to do SLS on blue and black side bosu and touch toes prior to fal that broke shoulder. After she fell, it dec her confidence. Prior Treatments and Tests injections IMPRESSION: 1. Multilevel degenerative disc disease as detailed above . 2. Moderate central canal stenosis at L4-5. Treatment Goals Patient/Caregiver Goals Be able to walk and carry full amount of groceries to/from store, be back at the gym working out, improve balance PT-OP-C Subjective Start: 05/23/23 15:45 Freq: Status: Active Protocol: Document 09/13/23 09:49 [facility] (Rec: 09/13/23 10:40 [facility] [id number]) OP-PT Subjective Patient Comments Patient Comments pt reports she is returned to the gym and has been doing JULY and PT exercsies. Patient Reported Progress Improving PT-OP-D Balance Start: 05/23/23 15:45 Freq: Status: Active Protocol: Document 08/06/23 07:27 BS (Rec: 08/06/23 08:37 BS [id number]) Balance Tests Single Limb Standing Single Limb- Right >30s w/o deviation Single Limb- Left >30 sec slight lat shear PT-OP-F Manual Assessment Start: 05/23/23 15:45 Freq: Status: Active Protocol: Document 06/21/23 07:30 [facility] (Rec: 06/21/23 08:18 [facility] [id number]) Manual Assessments Soft Tissue Assessment Soft Tissue Mobility Assessment R SI feels bruised. glute tenderness -feels like pins and needles Joint Mobility Assessment Joint Mobility Assessment pain in back w/passive hip ext PT-OP-G Mobility & Gait Start: 05/23/23 15:45 Freq: Status: Active Protocol: Document 06/21/23 07:30 [facility] (Rec: 06/21/23 08:18 [facility] [id number]) OP Gait Assessment Comments Gait Comments dec push off, dec scap movement, dec stance time RLE, dec push off overall, PT-OP-J Posture/Palpation/Skin Start: 05/23/23 15:45 Freq: Status: Active Protocol: Document 08/30/23 07:35 [facility] (Rec: 08/30/23 09:01 [facility] [id number]) Posture Evaluation Mili Postural Classification System Vertebral Compression Test 3 Elbow Flexion Test 2 Lumbar Protective Mechanism Left AP 2 Lumbar Protective Mechanism Right AP 2 Lumbar Protective Mechanism Left PA 2 Lumbar Protective Mechanism Right PA 2 PT-OP-K Range of Motion Start: 05/23/23 15:45 Freq: Status: Active Protocol: Document 08/06/23 07:27 BS (Rec: 08/06/23 08:37 BS [id number]) Lumbar Spine Range of Motion Lumbar Spine Active Percentage Flexion 80 Extension 80 Rotation Left 60 Rotation Right 60 Lateral Flexion Left 100 Lateral Flexion Right 100 Comments pinch end range ext & pain coming out of R SB PT-OP-L Special Tests Start: 05/23/23 15:45 Freq: Status: Active Protocol: Document 06/21/23 07:30 [facility] (Rec: 06/21/23 08:18 [facility] [id number]) Special Tests Lumbar Spine Special Tests Slump Test Results dural tension L PT-OP-M Strength Start: 05/23/23 15:45 Freq: Status: Active Protocol: Document 08/30/23 07:35 [facility] (Rec: 08/30/23 09:01 [facility] [id number]) Hip Strength Hip Manual Muscle Testing Right Flexion (L2) 4- Good- Extension (S1) 3+ Fair+ Abduction 4+ Good+ Adduction 5 Normal External Rotation 5 Normal Internal Rotation 5 Normal Left Flexion (L2) 4 Good Extension (S1) 3+ Fair+ Abduction 4+ Good+ Adduction 5 Normal External Rotation 5 Normal Internal Rotation 5 Normal Knee Strength Knee Manual Muscle Testing Right Flexion (S2) 5 Normal Extension (L3) 5 Normal Left Flexion (S2) 5 Normal Extension (L3) 5 Normal Ankle/Foot Strength Ankle and Foot Manual Muscle Testing Right Dorsiflexion (L4) 5 Normal Plantarflexion (S1) 5 Normal Inversion 5 Normal Eversion (S1) 5 Normal Left Dorsiflexion (L4) 5 Normal Plantarflexion (S1) 5 Normal Inversion 5 Normal Eversion (S1) 5 Normal Comments 20 heel raises B PT-OP-Q Treatments Start: 05/23/23 15:45 Freq: Status: Active Protocol: Document 09/13/23 09:49 [facility] (Rec: 09/13/23 10:40 [facility] [id number]) Therapeutic Exercises Supine Exercises foam roll Supine Exercise Name flex, Habd, abd Side bilateral Reps/Minutes 10 ea Sidelying Exercises open book Side bilateral Reps/Minutes 8 Other Exercises thread the needle Side bilateral Reps/Minutes 8 Manual Therapy Treatment Joint Mobilizations thoracic Comments PA T3, T5-8 FM Transverse L and R T1-3 FM ribs Comments AP rib 1 and 3 FM caudal ribs 1-3 FM PT-OP-R Modalities Start: 05/23/23 15:45 Freq: Status: Active Protocol: Document 08/13/23 07:39 BS (Rec: 08/13/23 09:34 BS [id number]) Hot Pack/Cold Pack Treatment Cold Pack Location LB Patient Position Hooklying Treatment Duration (minutes) 10 PT-OP-T Assessment and Plan Start: 05/23/23 15:45 Freq: Status: Active Protocol: Document 09/13/23 09:49 [facility] (Rec: 09/13/23 10:40 [facility] [id number]) Physical Therapy Assessment Goals upper back Impairment tightness in thoracic spine constant -2-11/10 Half-Way Goal (LTG) Pt will report dec tightnes in thoracic spine and note not constant pain. LTG Duration 11/08/23 posture Assembly Machine Set Up Mechanic Goal (LTG) Pt will show improved posture by scoring at least 3/5 on VCT 08/06- Achieved, increase goal to improve posture by scoring 4/5 on VCT LTG Duration 09/13/23 balance Half-Way Goal (LTG) Pt will be able to do SLS on RLE 30 sec w/o lat hip shear or deviations. 08/06- Achieved LTG Duration achieved strength Short Term Goal (STG) Pt will be indep w/HEP STG Duration Achieved Half-Way Goal (LTG) Pt will score at least 3/5 on all planes LPM and 5/5 on BLE strength in all planes to show iproved stability and dec instances of pain. 08/06- progresssing, still <2/5 on AP LPM scores B and hips < 5/5 in all motions expt add on R & abd on L LTG Duration 09/13/23 activities Short Term Goal (STG) Pt will be able to return to the gym to work out without inc pain greater than 2 points . 08/06- pt has not returned to gym to workout yet STG Duration achieved 08/30 Assembly Machine Set Up Mechanic Goal (LTG) Pt will be able to carry her full load to/from the grocery store w/o pain greater than 2/ 10 after 08/06- pt carrying 2/3 of the load now comapred to 1/2 that she was at before. 08/30-still limited w/load-no change LTG Duration 11/08/23 Assessment Summary Assessment Pt had improved ability to sit up straight and be in more neutral spine position also improved cervical rotation and less thoracic pain. Physical Therapy Plan Frequency and Duration Frequency of Treatment Every Other Week Duration of treatment (weeks) 10 Plan of Care Start Date 08/30/23 Plan of Care End Date 11/08/23 Next Visit Focus/Plan Next Note Type Treatment Note Next Visit Plan work on posture and cont to review and work on thoraicc mobility to improve posture and dec pain; hip ext strength
--- NOTE | 2023-10-03 10:31 | PT.OTN ---
Current Diagnoses Radiculopathy, lumbar region (10/03/23) Difficulty in walking, not elsewhere classified (10/03/23) Abnormal posture (10/03/23) Weakness (10/03/23) Physical Therapy Treatment Note PT-OP-A Visit Information Start: 05/23/23 15:45 Freq: Status: Active Protocol: Document 10/03/23 09:04 [facility] (Rec: 10/03/23 10:31 [facility] [id number]) Out-Patient Physical Therapy Visit Information Visit Information Visit Type Treatment Note Visit Start Time 09:04 Visit Stop Time 09:45 Visit Number 16 Number of MORTUARY BEAUTICIAN Visits 0 PT-OP-B Current Condition Start: 05/23/23 15:45 Freq: Status: Active Protocol: Document 06/21/23 07:30 [facility] (Rec: 06/21/23 08:18 [facility] [id number]) Current Condition History of Current Condition Current Complaints 25 years ago History of Current Condition Pt reports 25 years ago she woke up screaming and ended up in the hospital and in a w/c and L4-5 desicated disc. She had back pain and pain down her leg and loss of sensory. She had 2 spinal injections that made it so she did not need surgery and it was gone 20 years. Its back now. She wants to work on [employer] to help support that area. She has had 2 injections and that hasn't help up much. It started a few months ago. 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 [facility] cannot sit or stand for an extended period. She walks at least 10 miles a day total split up throughout trails and concrete. She has been using 1lb wts on her hands. She is not back at the gym, but doing small wts w/shoulder. Pt did have pain down R leg until injection. Pain is more on R>L . She does have history of L broken shoulder that is partially recovered. Has Clay shoes recommended by electrician supervisor substation. Pt is avoiding her typical exercises as she is worried they might make soemthing worse. Pt used to be able to do SLS on blue and black side bosu and touch toes prior to fal that broke shoulder. After she fell, it dec her confidence. Prior Treatments and Tests injections IMPRESSION: 1. Multilevel degenerative disc disease as detailed above . 2. Moderate central canal stenosis at L4-5. Treatment Goals Patient/Caregiver Goals Be able to walk and carry full amount of groceries to/from store, be back at the gym working out, improve balance PT-OP-C Subjective Start: 05/23/23 15:45 Freq: Status: Active Protocol: Document 10/03/23 09:04 [facility] (Rec: 10/03/23 10:31 [facility] [id number]) OP-PT Subjective Patient Comments Patient Comments Pt feels like her core strength is still lacking. She has been going 5 days a week to the gym. She has been doing the HIT training. She is sleeping better, balance is better. She has stopped doing the 16 hr fast. She has a slice of turkey in the AM. PT-OP-D Balance Start: 05/23/23 15:45 Freq: Status: Active Protocol: Document 08/06/23 07:27 BS (Rec: 08/06/23 08:37 BS [id number]) Balance Tests Single Limb Standing Single Limb- Right >30s w/o deviation Single Limb- Left >30 sec slight lat shear PT-OP-F Manual Assessment Start: 05/23/23 15:45 Freq: Status: Active Protocol: Document 06/21/23 07:30 [facility] (Rec: 06/21/23 08:18 [facility] [id number]) Manual Assessments Soft Tissue Assessment Soft Tissue Mobility Assessment R SI feels bruised. glute tenderness -feels like pins and needles Joint Mobility Assessment Joint Mobility Assessment pain in back w/passive hip ext PT-OP-G Mobility & Gait Start: 05/23/23 15:45 Freq: Status: Active Protocol: Document 06/21/23 07:30 [facility] (Rec: 06/21/23 08:18 [facility] [id number]) OP Gait Assessment Comments Gait Comments dec push off, dec scap movement, dec stance time RLE, dec push off overall, PT-OP-J Posture/Palpation/Skin Start: 05/23/23 15:45 Freq: Status: Active Protocol: Document 08/30/23 07:35 [facility] (Rec: 08/30/23 09:01 [facility] [id number]) Posture Evaluation Mili Postural Classification System Vertebral Compression Test 3 Elbow Flexion Test 2 Lumbar Protective Mechanism Left AP 2 Lumbar Protective Mechanism Right AP 2 Lumbar Protective Mechanism Left PA 2 Lumbar Protective Mechanism Right PA 2 PT-OP-K Range of Motion Start: 05/23/23 15:45 Freq: Status: Active Protocol: Document 08/06/23 07:27 BS (Rec: 08/06/23 08:37 BS [id number]) Lumbar Spine Range of Motion Lumbar Spine Active Percentage Flexion 80 Extension 80 Rotation Left 60 Rotation Right 60 Lateral Flexion Left 100 Lateral Flexion Right 100 Comments pinch end range ext & pain coming out of R SB PT-OP-L Special Tests Start: 05/23/23 15:45 Freq: Status: Active Protocol: Document 06/21/23 07:30 [facility] (Rec: 06/21/23 08:18 [facility] [id number]) Special Tests Lumbar Spine Special Tests Slump Test Results dural tension L PT-OP-M Strength Start: 05/23/23 15:45 Freq: Status: Active Protocol: Document 08/30/23 07:35 [facility] (Rec: 08/30/23 09:01 [facility] [id number]) Hip Strength Hip Manual Muscle Testing Right Flexion (L2) 4- Good- Extension (S1) 3+ Fair+ Abduction 4+ Good+ Adduction 5 Normal External Rotation 5 Normal Internal Rotation 5 Normal Left Flexion (L2) 4 Good Extension (S1) 3+ Fair+ Abduction 4+ Good+ Adduction 5 Normal External Rotation 5 Normal Internal Rotation 5 Normal Knee Strength Knee Manual Muscle Testing Right Flexion (S2) 5 Normal Extension (L3) 5 Normal Left Flexion (S2) 5 Normal Extension (L3) 5 Normal Ankle/Foot Strength Ankle and Foot Manual Muscle Testing Right Dorsiflexion (L4) 5 Normal Plantarflexion (S1) 5 Normal Inversion 5 Normal Eversion (S1) 5 Normal Left Dorsiflexion (L4) 5 Normal Plantarflexion (S1) 5 Normal Inversion 5 Normal Eversion (S1) 5 Normal Comments 20 heel raises B PT-OP-Q Treatments Start: 05/23/23 15:45 Freq: Status: Active Protocol: Document 10/03/23 09:04 [facility] (Rec: 10/03/23 10:31 [facility] [id number]) Therapeutic Exercises Supine Exercises bridges Supine Exercise Name 1.SL bridge twist ER 2. SL bridge w/opp LE straight and on ground Side bilateral Reps/Minutes 5sec x4 ea 2. bugs Supine Exercise Name 1.LE only 90/90 2. UE and LE alt drops Reps/Minutes x8 ea Comments cues to keep LB into mat Manual Therapy Treatment Soft Tissue Mobilization back Body Location L rhomboids Mobilization Type Rolling,Sustained Pressure Intensity/Depth Moderate Joint Mobilizations thoracic Comments transverse R T4-6,9-10, L2 FM Transerse L T7-8, L3-5 FM ribs Comments AP rib 1 FM PA rib 2 and 3 FM caudal ribs 1-3 FM Self-Care/Home Management Treatment Education Other Education 10min: dsicussion of her still dec anti rotation stability, edu on not doing HIT too frequent and no more tahn 3-4x /wk. edu to cont advancing balance and wts and tolerates and does not inc pain, edu on importance of thoracic mobility PT-OP-R Modalities Start: 05/23/23 15:45 Freq: Status: Active Protocol: Document 08/13/23 07:39 BS (Rec: 08/13/23 09:34 BS [id number]) Hot Pack/Cold Pack Treatment Cold Pack Location LB Patient Position Hooklying Treatment Duration (minutes) 10 PT-OP-T Assessment and Plan Start: 05/23/23 15:45 Freq: Status: Active Protocol: Document 10/03/23 09:04 [facility] (Rec: 10/03/23 10:31 [facility] [id number]) Physical Therapy Assessment Goals upper back Impairment tightness in thoracic spine constant -2-3 Alf Goal (LTG) Pt will report dec tightnes in thoracic spine and note not constant pain. LTG Duration 11/08/23 posture Log Turner Goal (LTG) Pt will show improved posture by scoring at least 3/5 on VCT 4- Achieved, increase goal to improve posture by scoring 4/5 on VCT LTG Duration 09/13/23 balance Alf Goal (LTG) Pt will be able to do SLS on RLE 30 sec w/o lat hip shear or deviations. 12/4- Achieved LTG Duration achieved strength Short Term Goal (STG) Pt will be indep w/HEP STG Duration Achieved Log Turner Goal (LTG) Pt will score at least 3/5 on all planes LPM and 5/5 on BLE strength in all planes to show iproved stability and dec instances of pain. 12/4- progresssing, still <2/5 on AP LPM scores B and hips < 5/5 in all motions expt add on R & abd on L LTG Duration 09/13/23 activities Short Term Goal (STG) Pt will be able to return to the gym to work out without inc pain greater than 2 points . 08/06- pt has not returned to gym to workout yet STG Duration achieved 08/30 Log Turner Goal (LTG) Pt will be able to carry her full load to/from the grocery store w/o pain greater than 2/ 10 after 08/06- pt carrying 2/3 of the load now comapred to 1/2 that she was at before. 08/30-still limited w/load-no change LTG Duration 11/08/23 Assessment Summary Assessment Pt did well with sessiona nd advancement of core exercises. Improve B rotation and SB w/ dec pain after manual care today. Pt understanding how to progress at home Physical Therapy Plan Frequency and Duration Frequency of Treatment Every Other Week Duration of treatment (weeks) 10 Plan of Care Start Date 08/30/23 Plan of Care End Date 11/08/23 Next Visit Focus/Plan Next Note Type Treatment Note Next Visit Plan work on posture and cont to review and work on thoraicc mobility to improve posture and dec pain; hip ext strength
--- NOTE | 2023-10-18 14:04 | PT.OTN ---
Current Diagnoses Radiculopathy, lumbar region (10/18/23) Difficulty in walking, not elsewhere classified (10/18/23) Abnormal posture (10/18/23) Weakness (10/18/23) Physical Therapy Treatment Note PT-OP-A Visit Information Start: 05/23/23 15:45 Freq: Status: Active Protocol: Document 10/18/23 07:30 [facility] (Rec: 10/18/23 14:04 [facility] [id number]) Out-Patient Physical Therapy Visit Information Visit Information Visit Type Treatment Note Visit Start Time 07:31 Visit Stop Time 08:15 Visit Number 17 Number of LIVE IN HOUSEKEEPER Visits 0 PT-OP-B Current Condition Start: 05/23/23 15:45 Freq: Status: Active Protocol: Document 06/21/23 07:30 [facility] (Rec: 06/21/23 08:18 [facility] [id number]) Current Condition History of Current Condition Current Complaints 25 years ago History of Current Condition Pt reports 25 years ago she woke up screaming and ended up in the hospital and in a w/c and L4-5 desicated disc. She had back pain and pain down her leg and loss of sensory. She had 2 spinal injections that made it so she did not need surgery and it was gone 20 years. Its back now. She wants to work on [email or web address] to help support that area. She has had 2 injections and that hasn't help up much. It started a few months ago. 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 Seh cannot sit or stand for an extended period. She walks at least 10 miles a day total split up throughout trails and concrete. She has been using 1lb wts on her hands. She is not back at the gym, but doing small wts w/shoulder. Pt did have pain down R leg until injection. Pain is more on R>L . She does have history of L broken shoulder that is partially recovered. Has Clay shoes recommended by cso. Pt is avoiding her typical exercises as she is worried they might make soemthing worse. Pt used to be able to do SLS on blue and black side bosu and touch toes prior to fal that broke shoulder. After she fell, it dec her confidence. Prior Treatments and Tests injections IMPRESSION: 1. Multilevel degenerative disc disease as detailed above . 2. Moderate central canal stenosis at L4-5. Treatment Goals Patient/Caregiver Goals Be able to walk and carry full amount of groceries to/from store, be back at the gym working out, improve balance PT-OP-C Subjective Start: 05/23/23 15:45 Freq: Status: Active Protocol: Document 10/18/23 07:30 [facility] (Rec: 10/18/23 14:04 [facility] [id number]) OP-PT Subjective Patient Comments Patient Comments Pt reports she now bridge w/ feet on bosu and can now do SL bridge. Improved balance w/SL star taps. Pt feels like for the first time, she is able to turn her neck more vs her entire body. Looking for more work on tspine. Wants to also look at flexibility. Patient Reported Progress Improving PT-OP-D Balance Start: 05/23/23 15:45 Freq: Status: Active Protocol: Document 08/06/23 07:27 BS (Rec: 08/06/23 08:37 BS [id number]) Balance Tests Single Limb Standing Single Limb- Right >30s w/o deviation Single Limb- Left >30 sec slight lat shear PT-OP-F Manual Assessment Start: 05/23/23 15:45 Freq: Status: Active Protocol: Document 06/21/23 07:30 [facility] (Rec: 06/21/23 08:18 [facility] [id number]) Manual Assessments Soft Tissue Assessment Soft Tissue Mobility Assessment R SI feels bruised. glute tenderness -feels like pins and needles Joint Mobility Assessment Joint Mobility Assessment pain in back w/passive hip ext PT-OP-G Mobility & Gait Start: 05/23/23 15:45 Freq: Status: Active Protocol: Document 06/21/23 07:30 [facility] (Rec: 06/21/23 08:18 [facility] [id number]) OP Gait Assessment Comments Gait Comments dec push off, dec scap movement, dec stance time RLE, dec push off overall, PT-OP-J Posture/Palpation/Skin Start: 05/23/23 15:45 Freq: Status: Active Protocol: Document 08/30/23 07:35 [facility] (Rec: 08/30/23 09:01 [facility] [id number]) Posture Evaluation Mili Postural Classification System Vertebral Compression Test 3 Elbow Flexion Test 2 Lumbar Protective Mechanism Left AP 2 Lumbar Protective Mechanism Right AP 2 Lumbar Protective Mechanism Left PA 2 Lumbar Protective Mechanism Right PA 2 PT-OP-K Range of Motion Start: 05/23/23 15:45 Freq: Status: Active Protocol: Document 08/06/23 07:27 BS (Rec: 08/06/23 08:37 BS [id number]) Lumbar Spine Range of Motion Lumbar Spine Active Percentage Flexion 80 Extension 80 Rotation Left 60 Rotation Right 60 Lateral Flexion Left 100 Lateral Flexion Right 100 Comments pinch end range ext & pain coming out of R SB PT-OP-L Special Tests Start: 05/23/23 15:45 Freq: Status: Active Protocol: Document 06/21/23 07:30 [facility] (Rec: 06/21/23 08:18 [facility] [id number]) Special Tests Lumbar Spine Special Tests Slump Test Results dural tension L PT-OP-M Strength Start: 05/23/23 15:45 Freq: Status: Active Protocol: Document 08/30/23 07:35 [facility] (Rec: 08/30/23 09:01 [facility] [id number]) Hip Strength Hip Manual Muscle Testing Right Flexion (L2) 4- Good- Extension (S1) 3+ Fair+ Abduction 4+ Good+ Adduction 5 Normal External Rotation 5 Normal Internal Rotation 5 Normal Left Flexion (L2) 4 Good Extension (S1) 3+ Fair+ Abduction 4+ Good+ Adduction 5 Normal External Rotation 5 Normal Internal Rotation 5 Normal Knee Strength Knee Manual Muscle Testing Right Flexion (S2) 5 Normal Extension (L3) 5 Normal Left Flexion (S2) 5 Normal Extension (L3) 5 Normal Ankle/Foot Strength Ankle and Foot Manual Muscle Testing Right Dorsiflexion (L4) 5 Normal Plantarflexion (S1) 5 Normal Inversion 5 Normal Eversion (S1) 5 Normal Left Dorsiflexion (L4) 5 Normal Plantarflexion (S1) 5 Normal Inversion 5 Normal Eversion (S1) 5 Normal Comments 20 heel raises B PT-OP-Q Treatments Start: 05/23/23 15:45 Freq: Status: Active Protocol: Document 10/18/23 07:30 [facility] (Rec: 10/18/23 14:04 [facility] [id number]) Therapeutic Exercises Sidelying Exercises open book Side bilateral Reps/Minutes 8 Standing Exercises stretch Standing Exercise Name UE behind back Side bilateral Reps/Minutes 1 min bottoms up Side bilateral Reps/Minutes 1 min hip flexor stretch Side bilateral Reps/Minutes 1 min Other Exercises thread the needle Side bilateral Reps/Minutes 8 Manual Therapy Treatment Joint Mobilizations thoracic Comments Prone PA grade II T6-7 prone transverse L w/hand on head (L) FM T1-4 ribs Comments seated SB R FM R rib 8 Self-Care/Home Management Treatment Education Other Education 8 min: discussion of HEP and progression of bridges and things to monitor w/exercises; discussed w/pt cont stretching to help w/feeling more mobile through tspine and hips; discussed considering treating knee pain as that will affect her back as she will inc pain w/squats etc PT-OP-R Modalities Start: 05/23/23 15:45 Freq: Status: Active Protocol: Document 08/13/23 07:39 BS (Rec: 08/13/23 09:34 BS [id number]) Hot Pack/Cold Pack Treatment Cold Pack Location LB Patient Position Hooklying Treatment Duration (minutes) 10 PT-OP-T Assessment and Plan Start: 05/23/23 15:45 Freq: Status: Active Protocol: Document 10/18/23 07:30 [facility] (Rec: 10/18/23 14:04 [facility] [id number]) Physical Therapy Assessment Goals upper back Impairment tightness in thoracic spine constant -2-3 Assisted Goal (LTG) Pt will report dec tightnes in thoracic spine and note not constant pain. LTG Duration 11/08/23 posture Assisted Goal (LTG) Pt will show improved posture by scoring at least 3/5 on VCT 08/06- Achieved, increase goal to improve posture by scoring 4/5 on VCT LTG Duration 09/13/23 balance Assisted Goal (LTG) Pt will be able to do SLS on RLE 30 sec w/o lat hip shear or deviations. 12/4- Achieved LTG Duration achieved strength Short Term Goal (STG) Pt will be indep w/HEP STG Duration Achieved Assisted Goal (LTG) Pt will score at least 3/5 on all planes LPM and 5/5 on BLE strength in all planes to show iproved stability and dec instances of pain. 08/06- progresssing, still <2/5 on AP LPM scores B and hips < 5/5 in all motions expt add on R & abd on L LTG Duration 09/13/23 activities Short Term Goal (STG) Pt will be able to return to the gym to work out without inc pain greater than 2 points . 08/06- pt has not returned to gym to workout yet STG Duration achieved 08/30 Neurology Professor Goal (LTG) Pt will be able to carry her full load to/from the grocery store w/o pain greater than 2/ 10 after 08/06- pt carrying 2/3 of the load now comapred to 1/2 that she was at before. 08/30-still limited w/load-no change LTG Duration 11/08/23 Assessment Summary Assessment Pt is making excellent progress and has been able to advance her exercises well in gym. Cont notable tspine tightness that affects her posture and contributes to her back pain which improves w/ manual treatment. Physical Therapy Plan Frequency and Duration Frequency of Treatment Every Other Week Duration of treatment (weeks) 10 Plan of Care Start Date 08/30/23 Plan of Care End Date 11/08/23 Next Visit Focus/Plan Next Note Type Discharge Summary Next Visit Plan review exercises
--- NOTE | 2023-10-18 17:10 | PT.OPPOC ---
Physical, Occupational & Speech Therapy At [facility] Current Diagnoses Radiculopathy, lumbar region (10/18/23) Difficulty in walking, not elsewhere classified (10/18/23) Abnormal posture (10/18/23) Weakness (10/18/23) Visit Care Team Role Provider Type Ness Amaya DO Family Provider Non-Staff Primary Care Provider Specialty: Family Practice Address: [address] [place] [address], [facility] [place] [place], [address] Email: [email or web address] Sanders MD Attending Provider Physician Referring Provider Specialty: Anesthesiology Interventional Radiology Pain Management Address: [address] [place] [address], [phone] Email: .[employer] Plan Of Care PT-OP-T Assessment and Plan Start: 05/23/23 15:45 Freq: Status: Active Protocol: Document 10/18/23 07:30 [facility] (Rec: 10/18/23 14:04 [facility] [id number]) Physical Therapy Assessment Goals upper back Impairment tightness in thoracic spine constant -2-310 Electric Truck Operator Goal (LTG) Pt will report dec tightnes in thoracic spine and note not constant pain. 10/24-reports some relief LTG Duration 4/1 posture Electric Truck Operator Goal (LTG) Pt will show improved posture by scoring at least 3/5 on VCT 08/06- Achieved, increase goal to improve posture by scoring 4/5 on VCT LTG Duration 4/1 balance Electric Truck Operator Goal (LTG) Pt will be able to do SLS on RLE 30 sec w/o lat hip shear or deviations. 12/- Achieved LTG Duration achieved strength Short Term Goal (STG) Pt will be indep w/HEP STG Duration Achieved [facility] Goal (LTG) Pt will score at least 3/5 on all planes LPM and 5/5 on BLE strength in all planes to show iproved stability and dec instances of pain. 12/- progresssing, still <2/5 on AP LPM scores B and hips < 5/5 in all motions expt add on R & abd on L 10/18-improving overall; advancing exercises LTG Duration 12/02 activities Short Term Goal (STG) Pt will be able to return to the gym to work out without inc pain greater than 2 points . 08/06- pt has not returned to gym to workout yet STG Duration achieved 08/30 Electric Truck Operator Goal (LTG) Pt will be able to carry her full load to/from the grocery store w/o pain greater than 2/ 10 after 08/06- pt carrying 2/3 of the load now comapred to 1/2 that she was at before. 08/30-still limited w/load-no change LTG Duration achieved 10/18 Assessment Summary Assessment Pt is making excellent progress and has been able to advance her exercises well in gym. Cont notable tspine tightness that affects her posture and contributes to her back pain which improves w/ manual treatment. She is making good progress w/PT at this time and noting improving strength with HEP and has been able to do advanced exercises. She still c/o pain in tspine and reuqires cues for posture. Physical Therapy Plan Frequency and Duration Frequency of Treatment 3x Duration of treatment (weeks) 10 Plan of Care Start Date 10/18/23 Plan of Care End Date 12/13/23 Therapeutic Interventions Therapeutic Interventions Balance Training,Gait Training ,Home Exercise Program,Joint Mobilizations,Manual Therapy, Neuromuscular Re-education, Orthotic/Prosthetic Management ,Patient/Caregiver Education, Self-Care/Home Management,Soft Tissue Mobilization,Taping, Therapeutic Activities, Therapeutic Exercises Modalities Cold Pack/Ice Massage,Electric Stimulation,Hot Packs, Infrared Therapy,Traction- Mechanical,Ultrasound Next Visit Focus/Plan Next Note Type Discharge Summary Next Visit Plan review exercises Plan of Care Dates Plan of Care Start Date 10/18/23 Plan of Care End Date 12/13/23 Electronically Signed by: Shawnee Bates, PT 10/24/23 [id number] If you are in agreement with this Plan of Care, please return a signed and dated copy. I have reviewed this Plan of Care and certify that the skilled therapy services above are required to meet the patient?s needs. Physician Signature Date Printed Name and Credentials Clinical Instructor Signature Printed Name and Credentials
--- NOTE | 2023-10-18 17:10 | PT.OPPN ---
Current Diagnoses Radiculopathy, lumbar region (10/18/23) Difficulty in walking, not elsewhere classified (10/18/23) Abnormal posture (10/18/23) Weakness (10/18/23) Physical Therapy Progress Note PT-OP-A Visit Information Start: 05/23/23 15:45 Freq: Status: Active Protocol: Document 10/18/23 07:30 [facility] (Rec: 10/18/23 14:04 [facility] [id number]) Out-Patient Physical Therapy Visit Information Visit Information Visit Type Treatment Note Visit Start Time 07:31 Visit Stop Time 08:15 Visit Number 17 Number of SALES SPECIAL AGENT Visits 0 PT-OP-B Current Condition Start: 05/23/23 15:45 Freq: Status: Active Protocol: Document 06/21/23 07:30 [facility] (Rec: 06/21/23 08:18 [facility] [id number]) Current Condition History of Current Condition Current Complaints 25 years ago History of Current Condition Pt reports 25 years ago she woke up screaming and ended up in the hospital and in a w/c and L4-5 desicated disc. She had back pain and pain down her leg and loss of sensory. She had 2 spinal injections that made it so she did not need surgery and it was gone 20 years. Its back now. She wants to work on [employer] to help support that area. She has had 2 injections and that hasn't help up much. It started a few months ago. 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 Seh cannot sit or stand for an extended period. She walks at least 10 miles a day total split up throughout trails and concrete. She has been using 1lb wts on her hands. She is not back at the gym, but doing small wts w/shoulder. Pt did have pain down R leg until injection. Pain is more on R>L . She does have history of L broken shoulder that is partially recovered. Has Clay shoes recommended by first coat sander. Pt is avoiding her typical exercises as she is worried they might make soemthing worse. Pt used to be able to do SLS on blue and black side bosu and touch toes prior to fal that broke shoulder. After she fell, it dec her confidence. Prior Treatments and Tests injections IMPRESSION: 1. Multilevel degenerative disc disease as detailed above . 2. Moderate central canal stenosis at L4-5. Treatment Goals Patient/Caregiver Goals Be able to walk and carry full amount of groceries to/from store, be back at the gym working out, improve balance PT-OP-C Subjective Start: 05/23/23 15:45 Freq: Status: Active Protocol: Document 10/18/23 07:30 [facility] (Rec: 10/18/23 14:04 [facility] [id number]) OP-PT Subjective Patient Comments Patient Comments Pt reports she now bridge w/ feet on bosu and can now do SL bridge. Improved balance w/SL star taps. Pt feels like for the first time, she is able to turn her neck more vs her entire body. Looking for more work on tspine. Wants to also look at flexibility. Patient Reported Progress Improving PT-OP-D Balance Start: 05/23/23 15:45 Freq: Status: Active Protocol: Document 08/06/23 07:27 BS (Rec: 08/06/23 08:37 BS [id number]) Balance Tests Single Limb Standing Single Limb- Right >30s w/o deviation Single Limb- Left >30 sec slight lat shear PT-OP-F Manual Assessment Start: 05/23/23 15:45 Freq: Status: Active Protocol: Document 06/21/23 07:30 [facility] (Rec: 06/21/23 08:18 [facility] [id number]) Manual Assessments Soft Tissue Assessment Soft Tissue Mobility Assessment R SI feels bruised. glute tenderness -feels like pins and needles Joint Mobility Assessment Joint Mobility Assessment pain in back w/passive hip ext PT-OP-G Mobility & Gait Start: 05/23/23 15:45 Freq: Status: Active Protocol: Document 06/21/23 07:30 [facility] (Rec: 06/21/23 08:18 [facility] [id number]) OP Gait Assessment Comments Gait Comments dec push off, dec scap movement, dec stance time RLE, dec push off overall, PT-OP-J Posture/Palpation/Skin Start: 05/23/23 15:45 Freq: Status: Active Protocol: Document 08/30/23 07:35 [facility] (Rec: 08/30/23 09:01 [facility] [id number]) Posture Evaluation Mili Postural Classification System Vertebral Compression Test 3 Elbow Flexion Test 2 Lumbar Protective Mechanism Left AP 2 Lumbar Protective Mechanism Right AP 2 Lumbar Protective Mechanism Left PA 2 Lumbar Protective Mechanism Right PA 2 PT-OP-K Range of Motion Start: 05/23/23 15:45 Freq: Status: Active Protocol: Document 08/06/23 07:27 BS (Rec: 08/06/23 08:37 BS [id number]) Lumbar Spine Range of Motion Lumbar Spine Active Percentage Flexion 80 Extension 80 Rotation Left 60 Rotation Right 60 Lateral Flexion Left 100 Lateral Flexion Right 100 Comments pinch end range ext & pain coming out of R SB PT-OP-L Special Tests Start: 05/23/23 15:45 Freq: Status: Active Protocol: Document 06/21/23 07:30 [facility] (Rec: 06/21/23 08:18 [facility] [id number]) Special Tests Lumbar Spine Special Tests Slump Test Results dural tension L PT-OP-M Strength Start: 05/23/23 15:45 Freq: Status: Active Protocol: Document 08/30/23 07:35 [facility] (Rec: 08/30/23 09:01 [facility] [id number]) Hip Strength Hip Manual Muscle Testing Right Flexion (L2) 4- Good- Extension (S1) 3+ Fair+ Abduction 4+ Good+ Adduction 5 Normal External Rotation 5 Normal Internal Rotation 5 Normal Left Flexion (L2) 4 Good Extension (S1) 3+ Fair+ Abduction 4+ Good+ Adduction 5 Normal External Rotation 5 Normal Internal Rotation 5 Normal Knee Strength Knee Manual Muscle Testing Right Flexion (S2) 5 Normal Extension (L3) 5 Normal Left Flexion (S2) 5 Normal Extension (L3) 5 Normal Ankle/Foot Strength Ankle and Foot Manual Muscle Testing Right Dorsiflexion (L4) 5 Normal Plantarflexion (S1) 5 Normal Inversion 5 Normal Eversion (S1) 5 Normal Left Dorsiflexion (L4) 5 Normal Plantarflexion (S1) 5 Normal Inversion 5 Normal Eversion (S1) 5 Normal Comments 20 heel raises B PT-OP-T Assessment and Plan Start: 05/23/23 15:45 Freq: Status: Active Protocol: Document 10/18/23 07:30 [facility] (Rec: 10/18/23 14:04 [facility] [id number]) Physical Therapy Assessment Goals upper back Impairment tightness in thoracic spine constant -2-310 Cnc Machine Setter Goal (LTG) Pt will report dec tightnes in thoracic spine and note not constant pain. 10/24-reports some relief LTG Duration 4/1 posture Fdc Goal (LTG) Pt will show improved posture by scoring at least 3/5 on VCT 08/06- Achieved, increase goal to improve posture by scoring 4/5 on VCT LTG Duration 12/02 balance Fdc Goal (LTG) Pt will be able to do SLS on RLE 30 sec w/o lat hip shear or deviations. 08/06- Achieved LTG Duration achieved strength Short Term Goal (STG) Pt will be indep w/HEP STG Duration Achieved Fdc Goal (LTG) Pt will score at least 3/5 on all planes LPM and 5/5 on BLE strength in all planes to show iproved stability and dec instances of pain. 08/06- progresssing, still <2/5 on AP LPM scores B and hips < 5/5 in all motions expt add on R & abd on L 10/18-improving overall; advancing exercises LTG Duration 12/02 activities Short Term Goal (STG) Pt will be able to return to the gym to work out without inc pain greater than 2 points . 08/06- pt has not returned to gym to workout yet STG Duration achieved 08/30 Cnc Machine Setter Goal (LTG) Pt will be able to carry her full load to/from the grocery store w/o pain greater than 2/ 10 after 08/06- pt carrying 2/3 of the load now comapred to 1/2 that she was at before. 08/30-still limited w/load-no change LTG Duration achieved 10/18 Assessment Summary Assessment Pt is making excellent progress and has been able to advance her exercises well in gym. Cont notable tspine tightness that affects her posture and contributes to her back pain which improves w/ manual treatment. She is making good progress w/PT at this time and noting improving strength with HEP and has been able to do advanced exercises. She still c/o pain in tspine and reuqires cues for posture. Physical Therapy Plan Frequency and Duration Frequency of Treatment 3x Duration of treatment (weeks) 10 Plan of Care Start Date 10/18/23 Plan of Care End Date 12/13/23 Therapeutic Interventions Therapeutic Interventions Balance Training,Gait Training ,Home Exercise Program,Joint Mobilizations,Manual Therapy, Neuromuscular Re-education, Orthotic/Prosthetic Management ,Patient/Caregiver Education, Self-Care/Home Management,Soft Tissue Mobilization,Taping, Therapeutic Activities, Therapeutic Exercises Modalities Cold Pack/Ice Massage,Electric Stimulation,Hot Packs, Infrared Therapy,Traction- Mechanical,Ultrasound Next Visit Focus/Plan Next Note Type Discharge Summary Next Visit Plan review exercises
--- NOTE | 2023-12-05 10:29 | PT.OTN ---
Current Diagnoses Radiculopathy, lumbar region (12/05/23) Difficulty in walking, not elsewhere classified (12/05/23) Abnormal posture (12/05/23) Weakness (12/05/23) Physical Therapy Treatment Note PT-OP-A Visit Information Start: 05/23/23 15:45 Freq: Status: Active Protocol: Document 12/05/23 08:22 [facility] (Rec: 12/05/23 10:29 [facility] [id number]) Out-Patient Physical Therapy Visit Information Visit Information Visit Type Discharge Summary Visit Start Time 08:20 Visit Stop Time 09:00 Visit Number 18 Number of [employer]UCK DRIVER Visits 0 PT-OP-B Current Condition Start: 05/23/23 15:45 Freq: Status: Active Protocol: Document 06/21/23 07:30 [facility] (Rec: 06/21/23 08:18 [facility] [id number]) Current Condition History of Current Condition Current Complaints 25 years ago History of Current Condition Pt reports 25 years ago she woke up screaming and ended up in the hospital and in a w/c and L4-5 desicated disc. She had back pain and pain down her leg and loss of sensory. She had 2 spinal injections that made it so she did not need surgery and it was gone 20 years. Its back now. She wants to work on [employer] to help support that area. She has had 2 injections and that hasn't help up much. It started a few months ago. 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 Seh cannot sit or stand for an extended period. She walks at least 10 miles a day total split up throughout trails and concrete. She has been using 1lb wts on her hands. She is not back at the gym, but doing small wts w/shoulder. Pt did have pain down R leg until injection. Pain is more on R>L . She does have history of L broken shoulder that is partially recovered. Has Clay shoes recommended by wild oyster harvester. Pt is avoiding her typical exercises as she is worried they might make soemthing worse. Pt used to be able to do SLS on blue and black side bosu and touch toes prior to fal that broke shoulder. After she fell, it dec her confidence. Prior Treatments and Tests injections IMPRESSION: 1. Multilevel degenerative disc disease as detailed above . 2. Moderate central canal stenosis at L4-5. Treatment Goals Patient/Caregiver Goals Be able to walk and carry full amount of groceries to/from store, be back at the gym working out, improve balance PT-OP-C Subjective Start: 05/23/23 15:45 Freq: Status: Active Protocol: Document 12/05/23 08:22 [facility] (Rec: 12/05/23 10:29 [facility] [id number]) OP-PT Subjective Patient Comments Patient Comments PT reports she went to help her son d/t a fall and he broke his foot. She has to lift baby a lot who was 30lbs. She was unable to gym work while there. Thoracic pain/ scap area has been more painful since. Wants to get it back to where it was. PT-OP-D Balance Start: 05/23/23 15:45 Freq: Status: Active Protocol: Document 08/06/23 07:27 BS (Rec: 08/06/23 08:37 BS [id number]) Balance Tests Single Limb Standing Single Limb- Right >30s w/o deviation Single Limb- Left >30 sec slight lat shear PT-OP-F Manual Assessment Start: 05/23/23 15:45 Freq: Status: Active Protocol: Document 06/21/23 07:30 [facility] (Rec: 06/21/23 08:18 [facility] [id number]) Manual Assessments Soft Tissue Assessment Soft Tissue Mobility Assessment R SI feels bruised. glute tenderness -feels like pins and needles Joint Mobility Assessment Joint Mobility Assessment pain in back w/passive hip ext PT-OP-G Mobility & Gait Start: 05/23/23 15:45 Freq: Status: Active Protocol: Document 06/21/23 07:30 [facility] (Rec: 06/21/23 08:18 [facility] [id number]) OP Gait Assessment Comments Gait Comments dec push off, dec scap movement, dec stance time RLE, dec push off overall, PT-OP-J Posture/Palpation/Skin Start: 05/23/23 15:45 Freq: Status: Active Protocol: Document 12/05/23 08:22 [facility] (Rec: 12/05/23 10:29 [facility] [id number]) Posture Evaluation Mili Postural Classification System Vertebral Compression Test 3 Elbow Flexion Test 4 Lumbar Protective Mechanism Left AP 3 Lumbar Protective Mechanism Right AP 3 Lumbar Protective Mechanism Left PA 3 Lumbar Protective Mechanism Right PA 3 PT-OP-K Range of Motion Start: 05/23/23 15:45 Freq: Status: Active Protocol: Document 08/06/23 07:27 BS (Rec: 08/06/23 08:37 BS [id number]) Lumbar Spine Range of Motion Lumbar Spine Active Percentage Flexion 80 Extension 80 Rotation Left 60 Rotation Right 60 Lateral Flexion Left 100 Lateral Flexion Right 100 Comments pinch end range ext & pain coming out of R SB PT-OP-L Special Tests Start: 05/23/23 15:45 Freq: Status: Active Protocol: Document 06/21/23 07:30 [facility] (Rec: 06/21/23 08:18 [facility] [id number]) Special Tests Lumbar Spine Special Tests Slump Test Results dural tension L PT-OP-M Strength Start: 05/23/23 15:45 Freq: Status: Active Protocol: Document 12/05/23 08:22 [facility] (Rec: 12/05/23 10:29 [facility] [id number]) Hip Strength Hip Manual Muscle Testing Right Flexion (L2) 5 Normal Extension (S1) 4- Good- Abduction 4 Good Adduction 5 Normal External Rotation 5 Normal Internal Rotation 5 Normal Left Flexion (L2) 4 Good Extension (S1) 4 Good Abduction 4 Good Adduction 5 Normal External Rotation 5 Normal Internal Rotation 5 Normal PT-OP-Q Treatments Start: 05/23/23 15:45 Freq: Status: Active Protocol: Document 12/05/23 08:22 [facility] (Rec: 12/05/23 10:29 [facility] [id number]) Manual Therapy Treatment Joint Mobilizations thoracic Comments transverse L T7-10 FM down gldie L T1 &3 and 7 upglide L T2 PA T1-7 seated and prone FM ribs Comments caudal ribs 1-3 L FM; internal torsion rib 3 and 7 L FM Self-Care/Home Management Treatment Education Other Education 8 min: edu to pt re: cont thoracic mobility when helpign later this month w/grandson again. Reviewed verbally (open book, cat/cow, thread the needle, foam roll exercises and w/demo over ball at wall() PT-OP-R Modalities Start: 05/23/23 15:45 Freq: Status: Active Protocol: Document 08/13/23 07:39 BS (Rec: 08/13/23 09:34 BS [id number]) Hot Pack/Cold Pack Treatment Cold Pack Location LB Patient Position Hooklying Treatment Duration (minutes) 10 PT-OP-T Assessment and Plan Start: 05/23/23 15:45 Freq: Status: Active Protocol: Document 12/05/23 08:22 [facility] (Rec: 12/05/23 10:29 [facility] [id number]) Physical Therapy Assessment Goals upper back Impairment tightness in thoracic spine constant -2-3 Snf Goal (LTG) Pt will report dec tightnes in thoracic spine and note not constant pain. 10/24-reports some relief /3-since taking care of grandson inc pain again LTG Duration improved until taking care of grandson & dec HEP posture Snf Goal (LTG) Pt will show improved posture by scoring at least 3/5 on VCT 08/06- Achieved, increase goal to improve posture by scoring 4/5 on VCT LTG Duration improved 3/5 balance City Tax Auditor Goal (LTG) Pt will be able to do SLS on RLE 30 sec w/o lat hip shear or deviations. 08/06- Achieved LTG Duration achieved strength Short Term Goal (STG) Pt will be indep w/HEP STG Duration Achieved Snf Goal (LTG) Pt will score at least 3/5 on all planes LPM and 5/5 on BLE strength in all planes to show iproved stability and dec instances of pain. 08/06- progresssing, still <2/5 on AP LPM scores B and hips < 5/5 in all motions expt add on R & abd on L 10/18-improving overall; advancing exercises LTG Duration improved activities Short Term Goal (STG) Pt will be able to return to the gym to work out without inc pain greater than 2 points . 08/06- pt has not returned to gym to workout yet STG Duration achieved 08/30 Snf Goal (LTG) Pt will be able to carry her full load to/from the grocery store w/o pain greater than 2/ 10 after 08/06- pt carrying 2/3 of the load now comapred to 1/2 that she was at before. 08/30-still limited w/load-no change LTG Duration achieved 10/18 Assessment Summary Assessment Pt was doing well w/HEP until had to go assist son and help w/grandson. D/t lifitng of 30 lb baby a lot and dec time for exercise, pt noticed inc pain but did improve mobility after manual today. Pt educated on importance of cont HEP. Pt to DC to HEP today Physical Therapy Plan Discharge Physical Therapy Discharge Reasons Goals Met Discharge Comments goals mostly met
== END 2023-12-17 12:23 | disposition home or self-care (01) ==
LOC: PHYS 08:15
PROVIDERS: Absent Provider Family Medicine; Family Provider Family Medicine; PCP Family Medicine; Referring Provider Anesthesiology; Visit Provider Anesthesiology
DX: M54.16 Radiculopathy, lumbar region (principal); R29.3 Abnormal posture; R53.1 Weakness; R26.2 Difficulty in walking, not elsewhere classified
CPT/HCPCS: 97010; 97110; 97112; 97140; 97162; 97530; 97535

== ENCOUNTER → 2024-01-03 06:56 | Outpatient (CLI) | payer MEDICARE, OTHER, SELFPAY ==
--- NOTE | 2024-01-03 06:58 | DI.CT.S_ITS ---
PROCEDURE: CT IVP A/P W/WO INDICATIONS: Abnormal findings of the kidney unspecified TECHNIQUE: Optional 5 mm thick noncontrast images acquired from the diaphragm to the symphysis pubis. After the administration of intravenous contrast, 5 mm thick images acquired from the diaphragm to the symphysis pubis after a 10-minute delay. 2 mm thick coronal and sagittal reformats were then performed of the kidneys and ureters. For radiation dose reduction, the following was used: automated exposure control, adjustment of mA and/or kV according to patient size. COMPARISON: None. FINDINGS: Image quality: Diagnostic. Kidneys and Ureters: Both kidneys are normal in size, without hydronephrosis or nephrolithiasis. No perinephric fat stranding. There is normal bilateral renal enhancement. Renal calyces appear normal in morphology when filled with contrast. Opacified portions of both ureters demonstrate normal caliber. Multiple left-sided parapelvic cysts (6/31). No complex cystic lesions which require follow-up. Bladder: Bladder wall thickness is normal. No calcified bladder stones. OTHER: Lower chest: Unremarkable. Liver: No solid mass. Subcentimeter hypodensity in the left hepatic lobe is too small to characterize (4/50). Gallbladder: No radiopaque gallstones or wall thickening. Biliary ducts: No biliary dilation. Pancreas: No ductal dilation. Spleen: Size is within normal limits. Adrenal Glands: No adrenal nodules. Stomach and Bowel: No hiatal hernia. Stomach appears grossly normal. Small and large bowel is normal in caliber, without obstruction. Normal appendix (4/142). Peritoneum: No abnormal intraperitoneal fluid. No free air. Ventral Wall: Tiny fat containing umbilical hernia. Abdominal Nodes: No retroperitoneal or mesenteric adenopathy by size criteria. Vessels: Aorta and inferior vena cava are normal in size. Tortuous abdominal aorta with mild calcification of the abdominal aorta and iliac vasculature. Patent portal, splenic and bilateral renal veins. Patent hepatic veins. PELVIS: Pelvic Organs: Hysterectomy. Pelvic Nodes: No enlarged lymph nodes. Miscellaneous: No inguinal hernias are seen. Bones: No aggressive osseous abnormality. No acute fractures. Mild multilevel degenerative changes of the spine. IMPRESSION: 1. No nephrolithiasis or filling defects within the opacified renal collecting system or ureters. 2. Hysterectomy. Dictated by: Bernard Wasserman M.D. on 01/03/2024 at 11:00 Approved by: Bernard Wasserman M.D. on 01/03/2024 at 11:04
--- NOTE | 2024-01-03 06:58 | DI.MG.S_ITS ---
BILATERAL DIGITAL SCREENING MAMMOGRAM 3D/2D WITH CAD: 01/03/2024 CLINICAL: Routine screening. Comparison is made to exams dated: 12/13/2022 mammogram, 12/05/2021 mammogram, and 09/21/2020 mammogram - [facility]. There are scattered areas of fibroglandular density in both breasts (category b / 25%-50% glandular tissue). Current study was also evaluated with a Computer Aided Detection (CAD) system. No significant masses, calcifications, or other findings are seen in either breast. There has been no significant interval change. IMPRESSION: NEGATIVE There is no mammographic evidence of malignancy. A 1 year screening mammogram is recommended. Based on the Tyrer Cuzick model (a risk assessment model) the patient's lifetime risk is 4.5% and her 10 year risk is 2.8%. According to the ACR, ACS, and NCCN guidelines, an annual breast MRI exam along with mammogram is recommended if the patient's lifetime risk is 20% or greater. This exam was interpreted at Station ID: [id number]. NOTE: For mammograms, a report in lay terms will be sent to the patient. Approximately 15% of breast malignancies will not be visualized mammographically. In the management of a palpable breast mass, a negative mammogram must not discourage biopsy of a clinically suspicious lesion. Electronically Signed By: Chris ibarra/anabelle:01/03/2024 10:39:55 letter sent: Normal Exam ACR BI-RADS Category 1: Negative [id number]
[2024-01-03 07:20] LABS: Estimated Glomerular Filt Rate > 60 mL/min (>60)
== END ==
PROVIDERS: Radiology Diagnostic Radiology; Family Provider Family Medicine; PCP Family Medicine; Referring Provider Family Medicine; Visit Provider Family Medicine
DX: Z12.31 Encounter for screening mammogram for malignant neoplasm of breast (principal); R92.323 Mammographic fibroglandular density, bilateral breasts; R93.429 Abnormal radiologic findings on diagnostic imaging of unspecified kidney; Z90.710 Acquired absence of both cervix and uterus
CPT/HCPCS: 36415; 74178; 77063; 77067; 82565; Q9967

== ENCOUNTER → 2024-04-17 06:54 | Outpatient (CLI) | payer MEDICARE, OTHER, SELFPAY ==
[2024-04-17 08:31] LABS: Cholesterol 206 mg/dL (140-199); HDL Cholesterol 70 mg/dL (40-60); LDL Cholesterol Calculated 124 mg/dL (<100); Triglycerides 61 mg/dL (35-150); VLDL Cholesterol Calculated 12 mg/dL (2-30)
== END ==
PROVIDERS: Family Provider Family Medicine; PCP Family Medicine; Referring Provider Family Medicine; Visit Provider Family Medicine
DX: E78.5 Hyperlipidemia, unspecified (principal)
CPT/HCPCS: 36415; 80061

== ENCOUNTER → 2025-01-10 07:37 | Outpatient (CLI) | payer MEDICARE, OTHER, SELFPAY ==
--- NOTE | 2025-01-10 07:39 | DI.MG.S_ITS ---
MM screening mammo BI: 01/10/2025. BI-RADS: 2 CLINICAL: 69-year old female for bilateral screening mammogram. Tyrer-Cuzick lifetime risk of 3.3%. No personal or first-degree family history of breast cancer. The patient had a prior right breast biopsy. PRIOR EXAMS 01/03/2024, 12/13/2022, 12/05/2021, 09/21/2020, 09/15/2019. MAMMOGRAPHY TECHNIQUE: 2D and 3D (tomosynthesis) digital mammographic views obtained, with additional images as needed for full coverage. Current study was also evaluated with a Computer Aided Detection (CAD) system. DENSITY B. There are scattered areas of fibroglandular density. MAMMOGRAPHY FINDINGS Right: Benign-appearing post-surgical changes noted on the right. There are no suspicious masses, calcifications, or other findings in the breast. Left: No suspicious mass, asymmetry, microcalcification, or other abnormality seen. IMPRESSION: Right * No evidence of malignancy with benign findings. Left * No evidence of malignancy. RECOMMENDATIONS Bilateral * Annual screening mammography. OVERALL ASSESSMENT CATEGORY BI-RADS-2: Benign. The [employer] recommends annual screening mammography beginning at age 40 for women with average risk of breast cancer. ELECTRONICALLY SIGNED: Christiano Lackey M.D. on 01/12/2025 at 10:13:39 AM PT Interpreting Station ID: [id number]
== END ==
PROVIDERS: Family Provider Family Medicine; PCP Family Medicine; Referring Provider Family Medicine; Visit Provider Family Medicine
DX: Z12.31 Encounter for screening mammogram for malignant neoplasm of breast (principal)
CPT/HCPCS: 77063; 77067

== ENCOUNTER → 2025-02-09 10:08 | Outpatient (CLI) | payer MEDICARE, OTHER, SELFPAY ==
--- NOTE | 2025-02-09 10:09 | DI.RAD.S_ITS ---
PROCEDURE: XR HIP W PEL IF DONE BILAT 2V INDICATIONS: (worsening bilateral hip/knee pain) TECHNIQUE: Three views of the hip were acquired. COMPARISON: None. FINDINGS: Bones: Mild chronic osteitis pubis noted. SI and hip joints: Normal in width and alignment without arthritic change. Moderate L4-5 and L5-S1 degenerative disc disease is seen. Soft tissues: Enthesopathic changes seen in the lateral cortex of both greater trochanters IMPRESSION: Chronic findings as described Dictated by: Jovani Sue M.D. on 02/10/2025 at 11:42 Approved by: Jovani Sue M.D. on 02/10/2025 at 11:43
== END ==
PROVIDERS: Family Provider Family Medicine; PCP Family Medicine; Referring Provider Family Medicine; Visit Provider Family Medicine
DX: M25.551 Pain in right hip (principal); M25.552 Pain in left hip
CPT/HCPCS: 73521

== ENCOUNTER → 2025-03-06 05:54 | Outpatient (CLI) | payer MEDICARE, OTHER, SELFPAY ==
--- NOTE | 2025-03-06 05:59 | DI.RAD.S_ITS ---
PROCEDURE: ORTHO-XR FOOT 3V WB RIGHT INDICATIONS: foot pain TECHNIQUE: 3 weight-bearing views acquired of the foot. COMPARISON: None. FINDINGS: Bones: There is normal bony alignment with weight bearing. No fractures or dislocations. No suspicious bony lesions. Mild plantar calcaneal enthesophyte. Soft tissues: No tibiotalar joint effusion. No suspicious soft tissue calcifications. IMPRESSION: No acute bony abnormality. Dictated by: Judah Tavarez M.D. on 03/07/2025 at 16:18 Approved by: Judah Tavarez M.D. on 03/07/2025 at 16:19
--- NOTE | 2025-03-06 05:59 | DI.RAD.S_ITS ---
PROCEDURE: ORTHO-XR FOOT 3V WB LEFT COMPARISON: None. INDICATIONS: foot pain FINDINGS/IMPRESSION: No acute fracture or dislocation. No suspicious osseous lesions. Soft tissues are unremarkable. Dictated by: Judah Tavarez M.D. on 03/07/2025 at 16:17 Approved by: Judah Tavarez M.D. on 03/07/2025 at 16:18
== END ==
PROVIDERS: Family Provider Family Medicine; PCP Family Medicine; Referring Provider Podiatrist Foot & Ankle Surgery; Visit Provider Podiatrist Foot & Ankle Surgery
DX: M79.671 Pain in right foot (principal); M79.672 Pain in left foot
CPT/HCPCS: 73630

== ENCOUNTER 2025-06-22 07:30 | Outpatient (RCR) | payer MEDICARE, OTHER, SELFPAY ==
--- NOTE | 2025-06-17 10:02 | PT.OPPOC ---
Physical, Occupational & Speech Therapy At [facility] Current Diagnoses Pain in right hip (06/17/25) Pain in left hip (06/17/25) Visit Care Team Role Provider Type Tess Mahan DO Family Provider Physician Primary Care Provider Specialty: Family Practice Address: [address] [place] [address], [address], [address] Email: [email or web address] Sy Morrow MD Attending Provider Physician Referring Provider Specialty: Orthopedics Orthopedic Surgery Address: [address] [place] [address], [address] Fax: Email: [email or web address] Plan Of Care PT OP: Lower Back/Lower Extremity Start: 06/17/25 07:26 Freq: Status: Active Protocol: Document 06/17/25 07:26 [facility] (Rec: 06/17/25 10:01 [facility] [id number]) Out-Patient Physical Therapy Visit Information Visit Information Visit Type Initial Evaluation Visit Start Time 07:30 Visit Stop Time 08:15 Visit Number 1 Number of SURVE[employer] DIRECTIONAL Visits 0 Progress Note Due 07/17/25 OP-PT Subjective Patient Comments Patient Comments History of current diagnosis: Patient reports bilateral hip pain that started about a year ago. She does not recall a mechanism. She reports she has bilateral knee pain that started about the same time. Fall history of 5-6 times (all mechanical falls while walking). Occupation: Retired - accounting manager controller Physical activities/ hobbies: Walking 7-10 miles per day (18 min miles on everage). Hikes with poles. [place] and knitting. Pain location: Bilateral lateral hips Pain description: achy, tight Pain 0-10/10 (current): 3/10 Pain 0-10/10 (worst): 5/10 - sitting in a car for 45mins + Pain 0-10/10 (best): 2/10 - when walking Aggravating: Transitioning to walking after being stationary (getting up in morning, walking after sitting extended period) Alleviating: Tylenol, walking, heat Function prior to injury: Independent with all ADLs Function current: Independent with all ADLs - limited with exercises including squats, standing up from the floor, stair negotiation, bending down to the floor. Limited by knee pain: Stepping onto ladders, walking extended distances, walking inclines, bending the knees Patient goals: Improve pain levels in bilateral hips, improve mobility with getting up from floor, bending over and pick things up from the floor Patient Questionnaires Lower Extremity Functional Scale LEFS Score 60 LEFS Impairment 1 to 19% Impaired (Score 63-79) Palpation Assessment Location Bilateral hips Palpation Findings Tenderness Palpation Details TTP bilateral greater trochanter and hip abductor musculature and tendons Hip Goniometric Range of Motion Hip Measured in Degrees Right Passive Internal Rotation 12 External Rotation 85 Left Passive Testing Position Supine Internal Rotation 15 External Rotation 85 Right Active Hip ROM WFL Yes Testing Position Supine Flexion w/Knee 125 Flexed Left Active Hip ROM WFL Yes Flexion w/Knee 125 Flexed Hip Strength Hip Manual Muscle Testing Right Flexion (L2) 4 Good Abduction 3+ Fair+ Comments Pain reproduction with hip abduction MMT. Left Flexion (L2) 4 Good Abduction 3+ Fair+ Comments Pain reproduction with hip abduction MMT. Physical Therapy Assessment Rehab Potential Rehabilitation Good Potential Evaluation Complexity Number of Personal 0 Factors/ Comorbidities Number of Body 1-2 Systems Impaired Clinical Stable Presentation at Evaluation Impairments Impairments Activity Tolerance,Balance,Coordination,Functional Activities,Functional Mobility,Gait,Pain,Posture,ROM, Strength,Transfers Goals Three Impairment General LE function Short Term Goal (STG Patient will demonstrate an increase in LEFS score to ) 66 in order to show an increase in self-perceived function. STG Duration 3 weeks Commissioned Police Officer Goal (LTG) Patient will demonstrate an increase in LEFS score to 72 in order to show an increase in self-perceived function. LTG Duration 6 weeks Two Impairment Function with squatting Short Term Goal (STG Patient will squat to parallel with no more than a 2 ) point increase in pain levels. STG Duration 3 weeks Commissioned Police Officer Goal (LTG) Patient will squat to parallel with no increase in pain levels. LTG Duration 6 weeks One Impairment Lateral hip strength Short Term Goal (STG Patient will demonstrate an increase in pain-free ) bilateral hip abduction MMT to 4/5 in order to better function with ambulation. STG Duration 3 weeks Alf Goal (LTG) Patient will demonstrate an increase in pain-free bilateral hip abduction MMT to 5/5 in order to better function with ambulation. LTG Duration 6 weeks Assessment Summary Assessment Patient presenting to PT with complaints of chronic bilateral hip pain that is limiting function with squats, standing up from the floor, stair negotiation, and bending down to the floor. Objective investigation revealed deficits in bilateral hip strength (see objective measures: abduction MMT), ROM (See objective measures: Bilateral IR), pain reproduction with hip abduction MMTs and tenderness to palpation of greater trochanter and hip abductor musculature. 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 Physical Therapy Plan Frequency and Duration Frequency of 2x/Week Treatment Duration of 12 treatment (weeks) Plan of Care Start 06/17/25 Date Plan of Care End 09/15/25 Date Therapeutic Interventions Therapeutic Aquatic Therapy,Balance Training,Coordination Training, Interventions Gait Training,Home Exercise Program,Joint Mobilizations ,Manual Therapy,Neuromuscular Re-education,Patient/ Caregiver Education,Self-Care/Home Management,Soft Tissue Mobilization,Taping,Therapeutic Activities, Therapeutic Exercises Modalities Biofeedback,Cold Pack/Ice Massage,Electric Stimulation, Hot Packs,Infrared Therapy,Iontophoresis,Ultrasound, Vasopneumatic Devices Next Visit Focus/Plan Next Note Type Treatment Note Next Visit Plan Initiate treatment with focus on lateral hip loading. Plan of Care Dates Plan of Care Start Date 06/17/25 Plan of Care End Date 09/15/25 Electronically Signed by: Jadyn Hays, PT 06/17/25 1002 If you are in agreement with this Plan of Care, please return a signed and dated copy. I have reviewed this Plan of Care and certify that the skilled therapy services above are required to meet the patient?s needs. Physician Signature Date Printed Name and Credentials Clinical Instructor Signature Printed Name and Credentials
--- NOTE | 2025-06-22 08:18 | PT.OTN ---
Current Diagnoses Pain in right hip (06/22/25) Pain in left hip (06/22/25) Physical Therapy Treatment Note PT OP: Lower Back/Lower Extremity Start: 06/17/25 07:26 Freq: Status: Active Protocol: Document 06/22/25 07:34 KAYLA (Rec: 06/22/25 08:16 KAYLA [id number]) Out-Patient Physical Therapy Visit Information Visit Information Visit Type Treatment Note Visit Start Time 07:30 Visit Stop Time 08:10 Visit Number 2 Number of MAILING SECTION CLERK Visits 0 Progress Note Due 07/17/25 OP-PT Subjective Patient Comments Patient Comments Patient reports she has been doing her home exercises. She reports her symptoms are largely unchanged. Therapeutic Exercises Sidelying Exercises Side lying hip abductio Reps/Minutes x10 each side Sitting Exercises Seated hip hinge Reps/Minutes x10 Comments cues for neutral spine Standing Exercises Lateral tap downs Reps/Minutes x10 SLDL Standing Exercise B stance single leg deadlift Name Reps/Minutes 3x10 Standing hip hinge Reps/Minutes 2x10 Lateral band walks Resistance level 3 band Reps/Minutes 3x10 each side Physical Therapy Assessment Goals Three Impairment General LE function Short Term Goal (STG Patient will demonstrate an increase in LEFS score to ) 66 in order to show an increase in self-perceived function. STG Duration 3 weeks Professional Housing Consultant Goal (LTG) Patient will demonstrate an increase in LEFS score to 72 in order to show an increase in self-perceived function. LTG Duration 6 weeks Two Impairment Function with squatting Short Term Goal (STG Patient will squat to parallel with no more than a 2 ) point increase in pain levels. STG Duration 3 weeks Professional Housing Consultant Goal (LTG) Patient will squat to parallel with no increase in pain levels. LTG Duration 6 weeks One Impairment Lateral hip strength Short Term Goal (STG Patient will demonstrate an increase in pain-free ) bilateral hip abduction MMT to 4/5 in order to better function with ambulation. STG Duration 3 weeks Residential Goal (LTG) Patient will demonstrate an increase in pain-free bilateral hip abduction MMT to 5/5 in order to better function with ambulation. LTG Duration 6 weeks Assessment Summary Assessment Treatment was initiated with focus on lateral hip musculature loading. Patient tolerated treatment well with no increases in pain levels and reported muscular fatigue near end of sets. Plan next session to follow up on home exercises and response to today's session and continue with plan of care. Physical Therapy Plan Frequency and Duration Frequency of 2x/Week Treatment Duration of 12 treatment (weeks) Plan of Care Start 06/17/25 Date Plan of Care End 09/15/25 Date Next Visit Focus/Plan Next Note Type Treatment Note Next Visit Plan Follow up on response to today's session. Progress exercise as appropriate. Current HEP: SLDL Seated band abduction Lateral band walk Side lying hip abduction Lateral tap downs
--- NOTE | 2025-07-27 13:19 | PT.OPDS ---
Current Diagnoses Pain in right hip (06/22/25) Pain in left hip (06/22/25) Visit Care Team Role Provider Type Tess Mahan DO Family Provider Physician Primary Care Provider Specialty: Family Practice Address: [address] [place] [address], [address], [address] Email: [email or web address] Morrow MD Attending Provider Physician Referring Provider Specialty: Orthopedics Orthopedic Surgery Address: [address] [place] [address], [id number] Email: [email or web address] Visit Number Visit Number 2 Discharge Summary PT OP: Lower Back/Lower Extremity Start: 06/17/25 07:26 Freq: Status: Active Protocol: Document 07/27/25 13:16 KAYLA (Rec: 07/27/25 13:18 KAYLA [id number]) Out-Patient Physical Therapy Visit Information Visit Information Visit Type Discharge Summary Physical Therapy Assessment Assessment Summary Assessment Patient has cancelled her remaining appointments and will be discharged at this time due to lack of follow up. Please refer to previous notes on 06/17 and 06/22 for a summary of patient's time in PT. Physical Therapy Plan Frequency and Duration Frequency of 2x/Week Treatment Duration of 12 treatment (weeks) Plan of Care Start 06/17/25 Date Plan of Care End 09/15/25 Date
== END 2025-07-28 13:35 | disposition home or self-care (01) ==
LOC: PHYS 07:30
PROVIDERS: Family Provider Family Medicine; PCP Family Medicine; Referring Provider Orthopaedic Surgery Adult Reconstructive Orthopaedic Surgery; Visit Provider Orthopaedic Surgery Adult Reconstructive Orthopaedic Surgery
DX: M25.551 Pain in right hip (principal); M25.552 Pain in left hip
CPT/HCPCS: 97110; 97161